=== PATIENT | female | born 1940 | race Caucasian/White ===

== ENCOUNTER 2020-06-30 06:55 | Day surgery (SDC) | payer OTHER ==
--- NOTE | 2020-06-27 12:15 | RAD REPORT ---
EXAM DESCRIPTION: RAD - Chest Pa And Lat (2 Views) - 06/27/2020 12:01 pm CLINICAL HISTORY: preop, pending cardiac catheterization COMPARISON: Two view chest August 2009 TECHNIQUE: Frontal and lateral views of the chest were obtained. FINDINGS: The lungs are clear. Interstitial pattern not clearly different from comparison. Heart si ze is normal and central vasculature is within normal limits. No pleural effusion or pneumothorax se en. No acute bony finding noted. No aortic abnormality. IMPRESSION: No acute cardiopulmonary process. No worrisome change from the remote comparison.
[2020-06-27 12:26] LABS: Absolute Lymphocytes (CBC) 2.2 K/uL (0.7-4.9); Basophils % 1.1 % (0-1.3); Hematocrit 45.3 % (36.0-45.0); Lymphocytes % 22.8 % (15.3-44.8); MPV 9.6 fL (7.6-11.3); RBC Red Blood Cell Count 5.17 M/uL (3.86-4.86)
[2020-06-27 12:34] LABS: Protime INR 0.96
[2020-06-27 13:15] LABS: Potassium 4.1 mmol/L (3.5-5.1)
[2020-06-30] MEDS ORDERED: NA CHLORIDE 0.9% 500 ML ONE (08:52)
[2020-06-30] MEDS ORDERED: LIDOCAINE 1% 20 ML MDV ONE (10:27)
[2020-06-30] MEDS ORDERED: HEPA 1000U/500MLS 2,000 UNIT/1,000 ML BAG IV ONE (10:27)
[2020-06-30] MEDS ORDERED: HEPARIN 5000 UNIT/ML 1 ML VIAL ONE (10:35)
[2020-06-30] MEDS ORDERED: MIDAZOLAM HCL 2 MG/2 ML INJ ONE ×2 (10:35→10:45)
[2020-06-30] MEDS ORDERED: FENTANYL CITR 100 MCG/2 ML ONE (10:36)
[2020-06-30] MEDS ORDERED: ATROPINE SULF 1 MG/10 ML SYR IV ONE (10:36)
[2020-06-30] MEDS ORDERED: METOPROLOL TARTRATE 5 MG/5 ML INJ IV ONE (10:41)
--- NOTE | 2020-06-30 12:10 | OP ---
Surgeon: Chadwick Clancy MD Sales Trader: Clayton Bustos. Procedure: Abdominal angiogram with runoff. Indication: Peripheral arterial disease and positive arterial Doppler below the knees and claudicati on. Ms. Cespedes is 80, diabetic, has a history of dyslipidemia, classic claudication. Arterial Doppler show ed wkgen-bgg-fexw stenosis on both sides. Abdominal angiogram with runoff was arranged for today as an outpatient. Description Of Procedure: She was brought to the laborer salvage, prepped and draped in the routine sterile fashion, and given Versed for sedation. A 6-Vietnamese sheath was introduced in the right common femora l artery successfully using the Seldinger technique and 10 cc of Xylocaine. StarClose was used to cl ose the procedure. Angiography using a pigtail catheter above the renals showed normal renals bilate rally, normal aorta, normal iliac, normal SFA with 100% occlusion of the anterior tibial, posterior t ibial, and peroneal xbxgq-tgy-bwgl on both sides. We did a selective injection using a 4-Vietnamese WILSON catheter using a guidewire that was a Glidewire across the left iliac into the left SFA. Injection there confirmed occlusion zxbcp-avh-lmts of the anterior tibial, posterior tibial, and peroneal with diffuse collaterals. Sheath injection selective of the right SFA showed similar finding on the right side. Complications: There were no complications. Blood Loss: 5 cc. Anesthesia: Total conscious sedation was 45 minutes. Final Diagnosis: Severe peripheral artery disease below the knees. Plan: Plan is for medical therapy. For now, we will add aspirin, we will add Trental. Continue sta tin. Consider nitroglycerin. If she does not improve, I may refer her to vascular surgery program marian Vann or Franck for possible akehj-sit-cfuw interventions. The patient can go home today. I ian pimentel see her in the office in the 2 weeks. She will be at bedrest for 2 hours. NICOLE/DUL Voice ID: [id number] Report ID: [id number]
[2020-06-30 14:16] VITALS: BP 139/65; TEMP 97; O2SAT 100
== END 2020-06-30 13:56 | disposition home or self-care (01) ==
LOC: CCL 06:55
DX: I70.213 Atherosclerosis of native arteries of extremities with intermittent claudication, bilateral legs (principal); I70.92 Chronic total occlusion of artery of the extremities; E11.9 Type 2 diabetes mellitus without complications; E78.5 Hyperlipidemia, unspecified; Z20.828 Contact with and (suspected) exposure to other viral communicable diseases
CPT/HCPCS: 93005; 85025; 80048; 36415; 85610; 82947; 85730; 71046; 36200; 75630; U0002; C1893; C1887; C1769; J1644 ×2; J2250 ×2; J3010; J7040

== ENCOUNTER 2022-02-18 16:58 | Emergency (ER) | payer MEDICARE ==
--- OUTSIDE RECORDS SUMMARY | 2022-02-18 17:00 | XMS REPORT | Continuity of Care Document ---
:1940 Author Organization [facility] t Address [address] [place] [address] Care Team Providers Name Role Phone Unavailable Unavailable Unavailable Payers Payer Name Policy Type Policy Number Effective Date Expiration Date S [id number] 2021 (MEDICARE 00:00:00 REPLACEMENT HMO) Problems This patient has no known problems. Allergies, Adverse Reactions, Alerts This patient has no known allergies or adverse reactions. Medications This patient has no known medications. Procedures This patient has no known procedures. Encounters Start End Encounter Admission Attending Care Care Encounter Source Date/Time Date/Time Type Type Clinicians Facility Department ID 2022-02-09 2022-02-09 [facility] [id number] [facility]:29[facility]00 03:29:00 [facility] 2021-06-16 2021-06-16 [facility] [id number] [facility] 11:01:00 11:01:00 1119 [facility] Results This patient has no known results.
--- NOTE | 2022-02-18 17:42 | ER ---
Nurse's Notes [facility] Name: Lui Cespedes Age: 81 yrs Sex: Female : 1940 Arrival Date: 02/18/2022 Time: 17:00 Bed Waiting Private MD: Vaughn Wood E Diagnosis: Acute upper respiratory infection, unspecified Presentation: 02/18 17:19 Chief complaint: Patient states: Fever, MCKAY, body aches, fatigue x 2 days. Coronavirus jl7 screen: Vaccine status: Patient reports being unvaccinated. fatigue, fever, headache, Client presents with at least one sign or symptom that may indicate coronavirus-19. Standard/surgical mask placed on the client. Ebola Screen: No symptoms or risks identified at this time. Initial Sepsis Screen: Does the patient meet any 2 criteria? No. Patient's initial sepsis screen is negative. Does the patient have a suspected source of infection? No. Patient's initial sepsis screen is negative. Risk Assessment: Do you want to hurt yourself or someone else? Patient reports no desire to harm self or others. Onset of symptoms was February 16, 2022. 17:19 Method Of Arrival: Ambulatory [facility] 17:19 Acuity: SALVADOR [address] [facility] Triage Assessment: 17:23 Headache History: The patient has had previous headaches and this one is similar to jl7 previous episodes. General: Appears in no apparent distress. uncomfortable, Behavior is calm, cooperative, appropriate for age. Pain: Pain currently is 4 out of 10 on a pain scale. Pain began 2-3 days ago. Also complains of no other associated symptoms. Neuro: Level of Consciousness is awake, alert, obeys commands, Oriented to person, place, time, situation. Historical: - Allergies: 17:23 Aspirin; jl7 - Home Meds: 17:23 Insulin: Novolin R Sub-Q [Active]; Quinapril HCl Oral [Active]; jl7 17:32 pentoxifylline oral [Active]; jl7 - PMHx: 17:23 Diabetes mellitus; Hypertensive disorder; jl7 17:33 Intermittent claudication; jl7 - Immunization history:: Client reports having NOT received the Covid vaccine. - Social history:: Smoking status: Patient denies any tobacco usage or history of. Screenin:30 Abuse screen: Denies threats or abuse. Denies injuries from another. Nutritional jl7 screening: No deficits noted. Tuberculosis screening: No symptoms or risk factors identified. Fall Risk None identified. Assessment: 17:30 Reassessment: Dr. Villafuerte in triage assessing pt. jl7 Vital Signs: 17:19 BP 166 / 66; Pulse 105; Resp 17; Temp 99.9(O); Pulse Ox 98% on R/A; Weight 70.31 kg; jl7 Height 5 ft. 5 in. (165.10 cm); Pain 4/10; 17:19 Body Mass Index 25.79 (70.31 kg, 165.10 cm) jl7 ED Course: 17:00 Patient arrived in ED. mr 17:00 Vaughn Wood MD is Private Physician. mr 17:13 Hilda Villafuerte is Attending Physician. sd2 17:23 Triage completed. jl7 17:23 Arm band placed on right wrist. Patient placed in waiting room, Patient notified of jl7 wait time. 17:30 Patient has correct armband on for positive identification. jl7 17:30 No provider procedures requiring assistance completed. COVID swab sent to lab. jl7 17:41 Vaughn Wood MD is Referral Physician. sd2 18:04 Patient did not have IV access during this emergency room visit. jl7 Administered Medications: No medications were administered Medication: 17:30 VIS not applicable for this client. jl7 Outcome: 17:42 Discharge ordered by . sd2 18:04 Discharged to home ambulatory, with family. jl7 18:04 Condition: stable 18:04 Discharge instructions given to patient, Instructed on discharge instructions, follow up and referral plans. Demonstrated understanding of instructions, follow-up care. 18:05 Patient left the ED. jl7 Signatures: Danielle AlmontealKimberly RN RN Hilda Monte MD MD sd2 Corrections: (The following items were deleted from the chart) 17:25 17:23 Home Meds: None; jl7 jlMarylou 17:25 17:23 PMHx: None; jl7 jl7 17:25 17:23 PMHx: Headache; melony ty 17:33 17:31 Home Meds: Pentoxil Oral; jl7 jl7
--- NOTE | 2022-02-18 17:42 | EDPHYS ---
Physician Documentation [facility] Name: Lui Cespedes Age: 81 yrs Sex: Female : 1940 Arrival Date: 02/18/2022 Time: 17:00 Bed Waiting Private MD: Vaughn Wood E ED Physician Hilda Villafuerte HPI: 02/18 17:36 This 81 yrs old Female presents to ER via Ambulatory with complaints of Fever, Headache.sd2 17:36 81 yo F presents with CC of "I want a COVID test." She reports fever, headache, sd2 non-productive cough starting 2 days ago with negative home COVID test today. 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 She denies any chest pain, SOB, nausea, vomiting or diarrhea. . Historical: - Allergies: 17:23 Aspirin; jl7 - Home Meds: 17:23 Insulin: Novolin R Sub-Q [Active]; Quinapril HCl Oral [Active]; jl7 17:32 pentoxifylline oral [Active]; jl7 - PMHx: 17:23 Diabetes mellitus; Hypertensive disorder; jl7 17:33 Intermittent claudication; jl7 - Immunization history:: Client reports having NOT received the Covid vaccine. - Social history:: Smoking status: Patient denies any tobacco usage or history of. ROS: 17:36 Eyes: Negative for injury, pain, redness, and discharge, Cardiovascular: Negative for sd2 chest pain, palpitations, and edema, Respiratory: Negative for shortness of breath, cough, wheezing. Abdomen/GI: Negative for abdominal pain, nausea, vomiting, diarrhea. MS/Extremity: Negative for injury and deformity, Skin: Negative for injury, rash, and discoloration. 17:36 Hematologic/Lymphatic: Negative for swollen nodes, abnormal bleeding, and unusual bruising. 17:36 Constitutional: Positive for body aches, fever, Negative for poor PO intake, weight loss. 17:36 Neuro: Positive for headache, Negative for dizziness, gait disturbance, syncope. Exam: 17:36 Constitutional: This is a well developed, well nourished patient who is awake, alert, sd2 and in no acute distress. Head/Face: Normocephalic, atraumatic. Chest/axilla: Normal chest wall appearance and motion. Nontender with no deformity. Cardiovascular: Regular rate and rhythm with a normal S1 and S2. No gallops, murmurs, or rubs. 2+ distal pulses. Respiratory: Lungs have equal breath sounds bilaterally, clear to auscultation and percussion. No rales, rhonchi or wheezes noted. No increased work of breathing, no retractions or nasal flaring. Abdomen/GI: Soft, non-tender, with normal bowel sounds. No guarding or rebound. No evidence of tenderness throughout. Skin: Warm, dry with normal turgor. Normal color with no rashes, no lesions, and no evidence of cellulitis. MS/ Extremity: Pulses equal, no cyanosis. Neurovascular intact. Full, normal range of motion. Ambulatory without difficulty. Psych: Awake, alert, with orientation to person, place and time. Behavior, mood, and affect are within normal limits. Vital Signs: 17:19 BP 166 / 66; Pulse 105; Resp 17; Temp 99.9(O); Pulse Ox 98% on R/A; Weight 70.31 kg; jl7 Height 5 ft. 5 in. (165.10 cm); Pain 4/10; 17:19 Body Mass Index 25.79 (70.31 kg, 165.10 cm) jl7 MDM: 17:36 Differential diagnosis: viral Infection, bacterial infection, URI, bronchitis, sd2 pneumonia UTI, gastroenteritis, among others. Data reviewed: vital signs, nurses notes. Counseling: I had a detailed discussion with the patient and/or guardian regarding: the historical points, exam findings, and any diagnostic results supporting the discharge/admit diagnosis, lab results, the need for outpatient follow up, to return to the emergency department if symptoms worsen or persist or if there are any questions or concerns that arise at home. Medical screen evaluation completed. EMTALA emergency medical condition absent. ED course: COVID testing ordered. Pt would prefer not to wait for results and was informed that we will call if test returns positive. She is well appearing and nontoxic with no respiratory distress or hypoxia. She was advised of continued supportive care for symptoms, need for quarantine if positive and need for outpatient follow up. Verbalizes understanding of discharge plan and strict return precautions.. 17:42 Patient medically screened. sd2 02/18 17:30 Order name: SARS-COV-2 RT PCR (Document "Date of Onset" if Symptomatic) jl7 Administered Medications: No medications were administered Disposition Summary: 02/18/22 17:42 Discharge Ordered Location: Home sd2 Condition: Stable sd2 Diagnosis - Acute upper respiratory infection, unspecified sd2 Followup: sd2 - With: Vaughn Wood MD - When: 2 - 3 days - Reason: Recheck today's complaints, Continuance of care, Re-evaluation by your physician Followup: sd2 - With: Emergency Department - When: As needed - Reason: Discharge Instructions: - Discharge Summary Sheet sd2 - Upper Respiratory Infection, Adult sd2 - 3 Gandhi Steps to Take While Waiting for Your COVID-19 Test Result - [facility] [place] sd2 Forms: - Medication Reconciliation Form sd2 - Thank You Letter sd2 - Antibiotic Education sd2 - Prescription Opioid Use sd2 Signatures: Dispatcher [employer] Kimberly Lobato RN RN Hilda Monte MD MD sd2 Corrections: (The following items were deleted from the chart) 17:25 17:23 Home Meds: None; jl7 jl7 17:25 17:23 PMHx: None; jl7 jl7 17:25 17:23 PMHx: Headache; jl7 jl7 17:33 17:31 Home Meds: Pentoxil Oral; jl7 jl7
[2022-02-18 18:16] VITALS: BP 166/66; TEMP 99.9; O2SAT 98
== END 2022-02-18 18:05 | disposition home or self-care (01) ==
LOC: ER 16:58
DX: U07.1 COVID-19 (principal); J06.9 Acute upper respiratory infection, unspecified; I10 Essential (primary) hypertension; E11.9 Type 2 diabetes mellitus without complications; Z79.4 Long term (current) use of insulin; Z88.6 Allergy status to analgesic agent
CPT/HCPCS: 99281; U0003

== ENCOUNTER 2022-02-20 11:05 | Emergency (ER) | payer MEDICARE ==
--- OUTSIDE RECORDS SUMMARY | 2022-02-20 11:07 | XMS REPORT | Continuity of Care Document ---
:1940 Author Organization [facility] t Address [address] [place] [address] Care Team Providers Name Role Phone Unavailable Unavailable Unavailable Payers Payer Name Policy Type Policy Number Effective Date Expiration Date [id number] (MEDICARE 00:00:00 REPLACEMENT HMO) Problems This patient has no known problems. Allergies, Adverse Reactions, Alerts This patient has no known allergies or adverse reactions. Medications This patient has no known medications. Procedures This patient has no known procedures. Encounters Start End Encounter Admission Attending Care Care Encounter Source Date/Time Date/Time Type Type Clinicians Facility Department ID 2022-02-09 2022-02-09 [facility] [id number] [facility] 03:29:00 03:29:00 0715 [facility] 2021-06-16 2021-06-16 [facility] [id number] [facility] 11:01:00 11:01:00 1119 [facility] Results This patient has no known results.
[2022-02-20 11:43] LABS: Absolute Lymphocytes (CBC) 0.9 K/uL (0.7-4.9); Hematocrit 40.8 % (36.0-45.0); Lymphocytes % 9.6 % (15.3-44.8); MCV 88.6 fL (80-100); MPV 8.3 fL (7.6-11.3)
[2022-02-20] MEDS ORDERED: ONDANSETRON 4 MG/2 ML VIAL ONE (11:54)
[2022-02-20] MEDS ORDERED: NA CHLORIDE 0.9% 2,000 ML ONE (11:54)
[2022-02-20 12:01] LABS: Albumin 3.4 g/dL (3.4-5.0); Bilirubin Total 0.3 mg/dL (0.2-1.0); Potassium 4.4 mmol/L (3.5-5.1); Protein, Total 7.1 g/dL (6.4-8.2)
--- NOTE | 2022-02-20 12:47 | RAD REPORT ---
EXAM DESCRIPTION: RAD - Chest Single View - 02/20/2022 12:39 pm CLINICAL HISTORY: COUGH Chest pain. COMPARISON: Chest Pa And Lat (2 Views) dated 06/27/2020; CHEST PA AND LAT 2 VIEW dated 09/07/2009; CH EST PA AND LAT 2 VIEW dated 08/29/2009; CHEST PA AND LAT 2 VIEW dated 06/29/2009 FINDINGS: Portable technique limits examination quality. The lungs are grossly clear. The heart is normal in size. No displaced fractures. IMPRESSION: No acute intrathoracic process suspected.
[2022-02-20] MEDS ORDERED: INSULIN -REGULAR HUMAN 50 UNIT/0.5 ML ML ONE (13:51)
--- NOTE | 2022-02-20 14:49 | ER ---
Nurse's Notes [facility] Name: Lui Cespedes Age: 81 yrs Sex: Female : 1940 Arrival Date: 02/20/2022 Time: 11:06 Bed 30 Private MD: Vaughn Wood E Diagnosis: Coronavirus infection, unspecified;SARS-associated coronavirus as the cause of diseases classified elsewhere;Vomiting;Diarrhea, unspecified;Weakness;Fall on same level, unspecified;Contusion of nose;Type 1 diabetes mellitus with hyperglycemia;Acute kidney failure, unspecified-on chronic Presentation: 02/20 11:53 Chief complaint: Patient states: pt dx with COVID + X 4 days ago and states N/V X 2 jh6 days. Sent from PCP for fluids replacement and basic labs. Coronavirus screen: Vaccine status: Patient reports being unvaccinated. Ebola Screen: Patient negative for fever greater than or equal to 101.5 degrees Fahrenheit, and additional compatible Ebola Virus Disease symptoms Patient denies exposure to infectious person. Patient denies travel to an Ebola-affected area in the 21 days before illness onset. Initial Sepsis Screen: Does the patient meet any 2 criteria? No. Patient's initial sepsis screen is negative. Does the patient have a suspected source of infection? No. Patient's initial sepsis screen is negative. Risk Assessment: Do you want to hurt yourself or someone else? Patient reports no desire to harm self or others. Onset of symptoms was February 16, 2022. 11:53 Method Of Arrival: Ambulatory [facility] 11:53 Acuity: SALVADOR 3 6 Triage Assessment: 11:57 General: Appears in no apparent distress. Behavior is calm, cooperative. Pain: Denies [facility] pain. GI: Bowel sounds Abd is soft and non tender X 4 quads. Reports nausea, vomiting. Historical: - Allergies: 16:42 Aspirin; jl7 - Home Meds: 16:42 Quinapril HCl Oral [Active]; pentoxifylline Oral [Active]; Insulin: Novolin R Sub-Q jl7 [Active]; - PMHx: 16:42 diabetes mellitus; Hypertensive disorder; Intermittent Claudication; jl7 - Immunization history:: Client reports receiving the 2nd dose of the Covid vaccine. - Family history:: not pertinent. - Social history:: Smoking status: Patient denies any tobacco usage or history of. Screenin:00 Abuse screen: Denies threats or abuse. Denies injuries from another. Nutritional 6 screening: No deficits noted. Tuberculosis screening: No symptoms or risk factors identified. Fall Risk Fall in past 12 months (25 points). IV access (20 points). Assessment: 12:01 GI: Abdomen is non-distended, Bowel sounds present X 4 quads. Abd is soft and non jh6 tender. Vital Signs: 11:53 BP 102 / 57; Pulse 77; Resp 16; Temp 97.8; Pulse Ox 98% ; Weight 65.77 kg; Height 5 ft. jh6 1 in. (154.94 cm); Pain 0/10; 16:44 Pulse 75; Resp 15; Temp 98.1; Pulse Ox 98% ; jl7 11:53 Body Mass Index 27.40 (65.77 kg, 154.94 cm) 6 ED Course: 11:06 Patient arrived in ED. mr 11:06 Vaughn Wood MD is Private Physician. mr 11:27 Ismael Edwards MD is Attending Physician. eneida 11:45 Carissa Dixon, NIMO is Primary Nurse. 6 11:57 Triage completed. jh6 12:00 Arm band placed on right wrist. jh6 12:00 Inserted saline lock: 20 gauge in left antecubital area, using aseptic technique. Blood 6 collected. 12:03 Bed in low position. Side rails up X 1. jh6 12:41 Chest Single View XRAY In Process Unspecified. EDMS 14:47 Vaughn Wood MD is Referral Physician. eneida 15:13 Renal Ultrasound-Complete In Process Unspecified. EDMS 16:44 No provider procedures requiring assistance completed. IV discontinued, intact, jl7 bleeding controlled, No redness/swelling at site. Pressure dressing applied. Administered Medications: 11:53 Drug: NS 0.9% 2000 ml Route: IV; Rate: 1 bolus; Site: left antecubital; 6 14:35 Follow up: IV Status: Completed infusion; IV Intake: 2000ml j9 11:53 Drug: Zofran (Ondansetron) 4 mg Route: IVP; Site: left antecubital; 6 13:21 Follow up: Response: Nausea is decreased [facility] 13:45 Drug: Insulin Regular Human 5 units {Co-Signature: [email or web address] (Carissa Steinberg RN).} Route: [facility] IVP; Site: right antecubital; 14:26 Not Given (Patient Refused): Semaglutide Pen Injector 20 units Sub-Q once 6 14:41 Drug: NS 0.9% 500 ml Volume: 500 ml; Route: IV; Rate: 1 bolus; Site: left antecubital; jg9 15:43 Follow up: Response: No adverse reaction; IV Status: Completed infusion; IV Intake: jl7 500ml 15:35 Drug: Bebtelovimab 175 mg Route: IV; Rate: calculated rate; Site: left antecubital; jl7 15:37 Follow up: IV Status: Completed infusion jl7 16:45 Follow up: Response: No adverse reaction jl7 Medication: 16:44 VIS not applicable for this client. jl7 Intake: 14:35 IV: 2000ml; Total: 2000ml. jg9 15:43 IV: 500ml; Total: 2500ml. jl7 Outcome: 14:49 Discharge ordered by MD. monique 16:44 Discharged to home via wheelchair, with family. jl7 16:44 Condition: stable 16:44 Discharge instructions given to patient, family, Instructed on discharge instructions, follow up and referral plans. medication usage, Demonstrated understanding of instructions, follow-up care, medications, Prescriptions given X 4. 16:47 Patient left the ED. jl7 Signatures: Dispatcher [employer] EDHI Ismael Edwards MD MD cha Rivera, Danielle SaldanaKimberly RN RN jl7 Carissa Dixon RN RN jh6 Carissa Steinberg RN RN jg9 Carissa Steinbreg RN jg9 Corrections: (The following items were deleted from the chart) 14:35 14:14 IV Status: Completed infusion; IV Intake: 1000ml [facility] jg9 16:47 16:44 Discharge instructions given to patient, family, Instructed on discharge [facility] instructions, follow up and referral plans. medication usage, Demonstrated understanding of instructions, follow-up care, medications, Prescriptions given X 3, jl7
--- NOTE | 2022-02-20 14:49 | EDPHYS ---
Physician Documentation [facility] Name: Lui Cespedes Age: 81 yrs Sex: Female : 1940 Arrival Date: 02/20/2022 Time: 11:06 Bed 30 Private MD: Vaughn Wood E ED Physician Ismael Edwards HPI: 02/20 11:48 This 81 yrs old Female presents to ER via Unassigned with complaints of eneida Vomiting/Diarrhea. 11:48 The patient presents to the emergency department with nausea, diarrhea, that is eneida intermittent. Onset: The symptoms/episode began/occurred 4 day(s) ago. Possible causes: covid. The symptoms are aggravated by nothing. The symptoms are alleviated by nothing. Associated signs and symptoms: Pertinent positives: diarrhea, nausea, vomiting. Severity of symptoms: At their worst the symptoms were moderate in the emergency department the symptoms are unchanged. The patient has not experienced similar symptoms in the past. Historical: - Allergies: 16:42 Aspirin; jl7 - Home Meds: 16:42 Quinapril HCl Oral [Active]; pentoxifylline Oral [Active]; Insulin: Novolin R Sub-Q jl7 [Active]; - PMHx: 16:42 diabetes mellitus; Hypertensive disorder; Intermittent Claudication; jl7 - Immunization history:: Client reports receiving the 2nd dose of the Covid vaccine. - Family history:: not pertinent. - Social history:: Smoking status: Patient denies any tobacco usage or history of. ROS: 11:49 Constitutional: Negative for fever, chills, and weight loss, Eyes: Negative for injury, eneida pain, redness, and discharge, ENT: Negative for injury, pain, and discharge, Neck: Negative for injury, pain, and swelling, Cardiovascular: Negative for chest pain, palpitations, and edema, Respiratory: Negative for shortness of breath, cough, wheezing, and pleuritic chest pain, Back: Negative for injury and pain, : Negative for injury, bleeding, discharge, and swelling, MS/Extremity: Negative for injury and deformity, Skin: Negative for injury, rash, and discoloration, Neuro: Negative for headache, weakness, numbness, tingling, and seizure, Psych: Negative for depression, anxiety, suicide ideation, homicidal ideation, and hallucinations, Allergy/Immunology: Negative for hives, rash, and allergies, Endocrine: Negative for neck swelling, polydipsia, polyuria, polyphagia, and marked weight changes, Hematologic/Lymphatic: Negative for swollen nodes, abnormal bleeding, and unusual bruising. 11:49 Abdomen/GI: Positive for nausea and vomiting, diarrhea. Exam: 11:49 Constitutional: This is a well developed, well nourished patient who is awake, alert, eneida and in no acute distress. Head/Face: Normocephalic, atraumatic. Eyes: Pupils equal round and reactive to light, extra-ocular motions intact. Lids and lashes normal. Conjunctiva and sclera are non-icteric and not injected. Cornea within normal limits. Periorbital areas with no swelling, redness, or edema. ENT: Nares patent. No nasal discharge, no septal abnormalities noted. Tympanic membranes are normal and external auditory canals are clear. Oropharynx with no redness, swelling, or masses, exudates, or evidence of obstruction, uvula midline. Mucous membranes moist. Neck: Trachea midline, no thyromegaly or masses palpated, and no cervical lymphadenopathy. Supple, full range of motion without nuchal rigidity, or vertebral point tenderness. No Meningismus. Chest/axilla: Normal chest wall appearance and motion. Nontender with no deformity. No lesions are appreciated. Cardiovascular: Regular rate and rhythm with a normal S1 and S2. No gallops, murmurs, or rubs. Normal PMI, no JVD. No pulse deficits. Respiratory: Lungs have equal breath sounds bilaterally, clear to auscultation and percussion. No rales, rhonchi or wheezes noted. No increased work of breathing, no retractions or nasal flaring. Back: No spinal tenderness. No costovertebral tenderness. Full range of motion. Female : Normal external genitalia. Skin: Warm, dry with normal turgor. Normal color with no rashes, no lesions, and no evidence of cellulitis. MS/ Extremity: Pulses equal, no cyanosis. Neurovascular intact. Full, normal range of motion. Neuro: Awake and alert, GCS 15, oriented to person, place, time, and situation. Cranial nerves II-XII grossly intact. Motor strength 5/5 in all extremities. Sensory grossly intact. Cerebellar exam normal. Normal gait. Psych: Awake, alert, with orientation to person, place and time. Behavior, mood, and affect are within normal limits. 11:49 Abdomen/GI: Inspection: distension, that is mild, Bowel sounds: active, all quadrants, Palpation: abdomen is soft and non-tender, Liver: no appreciated palpable abnormalities, Hernia: not appreciated. 12:04 ECG was reviewed by the Attending Physician. [facility] Vital Signs: 11:53 BP 102 / 57; Pulse 77; Resp 16; Temp 97.8; Pulse Ox 98% ; Weight 65.77 kg; Height 5 ft. jh6 1 in. (154.94 cm); Pain 0/10; 16:44 Pulse 75; Resp 15; Temp 98.1; Pulse Ox 98% ; jl7 11:53 Body Mass Index 27.40 (65.77 kg, 154.94 cm) 6 MDM: 11:27 Patient medically screened. [facility] 11:51 Differential diagnosis: Nonspecific abd pain, viral gastroenteritis, gastroenteritis. [facility] Differential Diagnosis flu. Data reviewed: vital signs, nurses notes, lab test result(s), EKG, radiologic studies, plain films. Data interpreted: teletypesetter monitor: rate is 65 beats/min, rhythm is regular, Pulse oximetry: on room air. Test interpretation: by ED physician or midlevel provider: ECG, plain radiologic studies. Counseling: I had a detailed discussion with the patient and/or guardian regarding: the historical points, exam findings, and any diagnostic results supporting the discharge/admit diagnosis, lab results, radiology results, the need for outpatient follow up, for definitive care, a family practitioner. 02/20 11:32 Order name: CBC with Diff; Complete Time: 11:48 [facility] 02/20 11:32 Order name: Comprehensive Metabolic Panel; Complete Time: 13:02 [facility] 02/20 11:32 Order name: Chest Single View XRAY; Complete Time: 13:02 [facility] 02/20 14:11 Order name: Renal Ultrasound-Complete EDMS 02/20 11:32 Order name: EKG; Complete Time: 11:33 [facility] 02/20 11:32 Order name: EKG - Nurse/Tech; Complete Time: 11:53 [facility] 02/20 14:47 Order name: Misc. Order: bebtelovimab please; Complete Time: 15:39 eneida EC:04 Rate is 77 beats/min. Rhythm is regular. QRS [place] is Normal. VA interval is normal. QRS eneida interval is normal. QT interval is normal. No Q waves. T waves are Normal. No ST changes noted. Clinical impression: Normal ECG and No evidence of ischemia. Interpreted by me. Reviewed by me. Administered Medications: 11:53 Drug: NS 0.9% 2000 ml Route: IV; Rate: 1 bolus; Site: left antecubital; 6 14:35 Follow up: IV Status: Completed infusion; IV Intake: 2000ml jg9 11:53 Drug: Zofran (Ondansetron) 4 mg Route: IVP; Site: left antecubital; 6 13:21 Follow up: Response: Nausea is decreased [facility] 13:45 Drug: Insulin Regular Human 5 units {Co-Signature: jg9 (Carissa Steinberg RN).} Route: [facility] IVP; Site: right antecubital; 14:26 Not Given (Patient Refused): Semaglutide Pen Injector 20 units Sub-Q once [facility] 14:41 Drug: NS 0.9% 500 ml Volume: 500 ml; Route: IV; Rate: 1 bolus; Site: left antecubital; jg9 15:43 Follow up: Response: No adverse reaction; IV Status: Completed infusion; IV Intake: jl7 500ml 15:35 Drug: Bebtelovimab 175 mg Route: IV; Rate: calculated rate; Site: left antecubital; jl7 15:37 Follow up: IV Status: Completed infusion jl7 16:45 Follow up: Response: No adverse reaction jl7 Disposition Summary: 02/20/22 14:49 Discharge Ordered Location: Home eneida Problem: new eneida Symptoms: have improved eneida Condition: Stable eneida Diagnosis - Coronavirus infection, unspecified eneida - SARS-associated coronavirus as the cause of diseases classified elsewhere eneida - Vomiting eneida - Diarrhea, unspecified eneida - Weakness eneida - Fall on same level, unspecified eneida - Contusion of nose eneida - Type 1 diabetes mellitus with hyperglycemia eneida - Acute kidney failure, unspecified - on chronic eneida Followup: eneida - With: - When: 2 - 3 days - Reason: Recheck today's complaints, Continuance of care, Re-evaluation by your physician Discharge Instructions: - Discharge Summary Sheet eneida - Diarrhea, Adult eneida - Weakness eneida - Near-Syncope, Kuuu-nd-Avrx eneida - Diarrhea, Adult, Rcss-eq-Tzwd eneida - Weakness, Wous-xl-Leue eneida - Viral Respiratory Infection, Eens-Tq-Wgxp eneida - Aspirin and Your Heart eneida - Vomiting, Adult eneida - COVID-19 eneida - Things to Know about the COVID-19 Pandemic - [facility] - 10 Things You Can Do to Manage Your COVID-19 Symptoms at Home - [facility] eneida - COVID-19: Quarantine vs. Isolation - [facility] - Prevent the Spread of COVID-19 if You Are Sick - [facility] Forms: - Medication Reconciliation Form [facility] - Thank You Letter [facility] - Antibiotic Education [facility] - Prescription Opioid Use [facility] Prescriptions: - Pepcid 20 mg Oral Tablet - take 1 tablet by ORAL route every 12 hours for 30 days; 60 tablet; Refills: 0, [facility] Product Selection Permitted - Zofran 4 mg Oral Tablet - take 1 tablet by ORAL route every 12 hours As needed; 30 tablet; Refills: 0, [facility] Product Selection Permitted - Zithromax Z-Ascencion 250 mg Oral Tablet - take 1 tablet by ORAL route as directed for 5 days Day 1 - take two (2) tablets [facility] one time. Day 2, 3, 4 , 5 take one (1) tablet once daily.; 6 tablet; Refills: 0, Product Selection Permitted - budesonide 180 mcg/actuation Inhalation aerosol powdr breath activated - inhale 1 puff by INHALATION route 2 times per day; 1 Pump; Refills: 0, Product [facility] Selection Permitted Signatures: Dispatcher [employer] Ismael Ricks MD MD cha Leal, Jahala RN RN jl7 Carissa Dixon RN RN jh6 Carissa Steinberg RN RN jg9 Carissa Steinberg RN jg9 Corrections: (The following items were deleted from the chart) 14:11 14:00 [email or web address] ordered. EDMS RIVERA
[2022-02-20] MEDS ORDERED: BEBTELOVIMAB 175 MG/2 ML VIAL IV ONE (15:21)
--- NOTE | 2022-02-20 15:27 | RAD REPORT ---
EXAM DESCRIPTION: US - Renal Ultrasound-Complete - 02/20/2022 3:11 pm CLINICAL HISTORY: PAIN COMPARISON: No comparisons FINDINGS: The right kidney measures 8.6 x 5.3 x 3.8 cm. The left kidney measures 9.1 x 5.9 x 3.1 cm . Renal cortical thickness and echogenicity are normal. No hydronephrosis or suspicious renal mass. No bladder wall thickening or mass. No intraluminal stone or mass. IMPRESSION: No hydronephrosis or suspicious renal mass. No other significant findings.
[2022-02-20 16:52] VITALS: BP 102/57; O2SAT 98
[2022-02-20 16:54] VITALS: TEMP 98.1
--- NOTE | 2022-02-21 06:40 | EKG ---
Test Date: 2022-02-20 Test Time: 11:45:50 Sticker Hand: CUONG MEASUREMENT RESULTS: Intervals: Rate: 77 RI: 178 QRSD: 102 QT: 394 QTc: 445 Arion: P: 70 RI: 178 QRS: 50 T: 65 INTERPRETIVE STATEMENTS: Normal sinus rhythm Normal ECG Compared to ECG 06/27/2020 11:12:41 No significant changes Electronically Signed On 02-21-22 06:38:42 CDT by Chadwick Clancy
== END 2022-02-20 16:47 | disposition home or self-care (01) ==
LOC: ER 11:05
DX: U07.1 COVID-19 (principal); R19.7 Diarrhea, unspecified; R53.1 Weakness; S00.33XA Contusion of nose, initial encounter; W18.30XA Fall on same level, unspecified, initial encounter; E10.65 Type 1 diabetes mellitus with hyperglycemia; E10.22 Type 1 diabetes mellitus with diabetic chronic kidney disease; I12.9 Hypertensive chronic kidney disease with stage 1 through stage 4 chronic kidney disease, or unspecified chronic kidney disease; N18.9 Chronic kidney disease, unspecified; Z79.4 Long term (current) use of insulin; Z88.6 Allergy status to analgesic agent
CPT/HCPCS: 93005; 85025; 36415; 80053; 71045; 76770; 99284; J1815; J7030; J2405

== ENCOUNTER 2024-01-21 14:09 | Emergency (ER) | payer MEDICARE ==
[2024-01-21 15:17] LABS: Absolute Basophils 0.1 K/uL (0-0.5); Absolute Eosinophils 0.1 K/uL (0-0.5); Absolute Lymphocytes (CBC) 1.7 K/uL (0.7-4.9); Absolute Monocytes 0.6 K/uL (0.1-1.3); Absolute Neutrophil 5.9 K/uL (1.8-8.0); Basophils % 0.9 % (0-1.3); Eosinophils % 1.5 % (0-4.4); Hematocrit 36.4 % (36.0-45.0); Hemoglobin 11.8 g/dL (12.0-15.0); Lymphocytes % 19.8 % (15.3-44.8); MCH 28.6 pg (27.0-35.0); MCHC 32.3 g/dL (32.0-36.0); MCV 88.3 fL (80-100); MPV 8.2 fL (7.6-11.3); Monocytes % 7.5 % (3.3-12.3); Neutrophils % 70.3 % (41.7-73.7); Platelets 265 thou/uL (152-406); RBC Red Blood Cell Count 4.12 M/uL (3.86-4.86); Red Cell Distribution Width 14.5 % (12.1-15.2)
--- NOTE | 2024-01-21 15:21 | RAD REPORT ---
EXAM DESCRIPTION: Marlys Single View01/21/2024 2:45 pm CLINICAL HISTORY: sob COMPARISON: 2021 FINDINGS: The lungs appear clear of acute infiltrate. The heart is normal size IMPRESSION: No acute abnormalities displayed
[2024-01-21 15:34] LABS: Anion Gap 7.6 mEq/L (5.0-15.0); Magnesium 2.2 mg/dL (1.6-2.4); Potassium 4.6 mEq/L (3.5-5.1); Troponin High Sensitivity 6.4 pg/mL (<58.9)
--- NOTE | 2024-01-21 15:56 | ER ---
Nurse's Notes [facility] Name: Lui Cespedes Age: 83 yrs Sex: Female : 1940 Arrival Date: 01/21/2024 Time: 14:09 Bed 20 Private MD: Diagnosis: Shortness of breath;Palpitations Presentation: 01/20 14:18 Chief complaint: Patient states: "1 week ago, My body starts shaking and my heart mb9 starts racing when I'm sleeping. Ever since then, I've been SOB. Just talking or even walking makes me SOB.". Coronavirus screen: At this time, the client does not indicate any symptoms associated with coronavirus-19. Ebola Screen: No symptoms or risks identified at this time. Initial Sepsis Screen: Does the patient meet any 2 criteria? No. Patient's initial sepsis screen is negative. Does the patient have a suspected source of infection? No. Patient's initial sepsis screen is negative. Risk Assessment: Do you want to hurt yourself or someone else? Patient reports no desire to harm self or others. Onset of symptoms was 2023. 14:18 Acuity: SALVADOR 2 mb9 14:18 Method Of Arrival: Ambulatory mb9 Triage Assessment: 14:27 General: Appears in no apparent distress. Behavior is calm, cooperative. Pain: Denies mb9 pain. EENT: No signs and/or symptoms were reported regarding the EENT system. Neuro: Ruano Agitation-Sedation Scale (RASS): 0 - Alert and Calm Level of Consciousness is awake, alert, obeys commands, Oriented to person, place, time, situation, Appropriate for age. Cardiovascular: Patient's skin is warm and dry. Cardiovascular: Pulses are all present. Respiratory: Reports shortness of breath at rest. GI: No signs and/or symptoms were reported involving the gastrointestinal system. : No signs and/or symptoms were reported regarding the genitourinary system. Derm: Skin is pink, warm \\T\\ dry. Musculoskeletal: Range of motion: intact in all extremities. 16:06 Respiratory: Onset: The symptoms/episode began/occurred about a week ago, the patient me1 has mild shortness of breath. Historical: - Allergies: 14:20 Fentanyl; mb9 - Home Meds: 14:20 Xarelto oral [Active]; Insulin: Novolin R Sub-Q [Active]; Quinapril HCl Oral [Active]; mb9 pentoxifylline Oral [Active]; - PMHx: 14:20 diabetes mellitus; Hypertensive disorder; Intermittent Claudication; mb9 - PSHx: 14:20 left leg stent; mb9 - Immunization history:: Adult Immunizations up to date. - Infectious Disease History:: Denies. - Social history:: Smoking status: Patient denies any tobacco usage or history of. Screenin:15 [facility] ED Fall Risk Assessment (Adult) History of falling in the last 3 months, me1 including since admission No falls in past 3 months (0 pts) Confusion or Disorientation No (0 pts) Intoxicated or Sedated No (0 pts) Impaired Gait No (0 pts) Mobility Assist Device Used No (0 pt) Altered Elimination No (0 pt) Score/Fall Risk Level 0 - 2 = Low Risk Maintained a safe environment, Provided non-skid footwear, Hourly rounding (assess needs \\T\\ fall precautionary measures) done. Abuse screen: Denies threats or abuse. Nutritional screening: No deficits noted. Tuberculosis screening: No symptoms or risk factors identified. Assessment: 15:15 General: Appears comfortable, well groomed, well developed, well nourished, Behavior is me1 calm, cooperative, appropriate for age, Reports "1 week ago, My body starts shaking and my heart starts racing when I'm sleeping. Ever since then, I've been SOB. Just talking or even walking makes me SOB.". Pain: Denies pain. Neuro: Level of Consciousness is awake, alert, obeys commands, Oriented to person, place, time, situation, Appropriate for age. Cardiovascular: Patient's skin is warm and dry. Cardiovascular: Reports palpitations, shortness of breath. Respiratory: Airway is patent Respiratory effort is even, unlabored, Respiratory pattern is regular, symmetrical. GI: No signs and/or symptoms were reported involving the gastrointestinal system. : No signs and/or symptoms were reported regarding the genitourinary system. EENT: No signs and/or symptoms were reported regarding the EENT system. Derm: Skin is intact, is healthy with good turgor, Skin is pink, warm \\T\\ dry. Musculoskeletal: No signs and/or symptoms reported regarding the musculoskeletal system. 16:05 Respiratory: Breath sounds are clear bilaterally. me1 Vital Signs: 14:18 BP 150 / 87; Pulse 97; Resp 18; Temp 98; Pulse Ox 99% on R/A; Weight 65.77 kg; Height 5 mb9 ft. 7 in. ; 15:47 BP 140 / 67; Pulse 85; Resp 16; Pulse Ox 99% on R/A; me1 14:18 Body Mass Index 22.71 (65.77 kg, 170.18 cm) mb9 ED Course: 14:16 Patient arrived in ED. mg5 14:16 Arm band placed on. mb9 14:20 Loy Broderick DO is Attending Physician. ms3 14:20 Triage completed. mb9 14:46 XRAY Chest (1 view) In Process Unspecified. EDMS 15:00 Missed attempt(s): 22 gauge in left wrist. Bleeding controlled, band aid applied, bc6 catheter tip intact. 15:09 Basic Metabolic Panel Sent. 6 15:09 CBC with Diff Sent. bc6 15:09 Magnesium Sent. 6 15:09 NT PRO-BNP Sent. 6 15:09 Troponin HS Sent. 6 15:09 Initial lab(s) drawn, by ok, sent to lab. Inserted saline lock: 20 gauge in right bc6 forearm, using aseptic technique. Blood collected. 15:15 Patient has correct armband on for positive identification. Bed in low position. Call ok1 light in reach. Side rails up X 1. Provided Education on: POC. Verbalized understanding. . Client placed on continuous cardiac and pulse oximetry monitoring. NIBP monitoring applied. hospital scientist on. Pulse ox on. NIBP on. 15:15 No provider procedures requiring assistance completed. ok1 15:22 Basic Metabolic Panel Sent. 6 15:22 Magnesium Sent. 6 15:22 NT PRO-BNP Sent. 6 15:22 Troponin HS Sent. 6 15:22 EKG done, by ED staff, reviewed by Loy Broderick DO. 6 15:40 Estefania Humphrey, NIMO is Primary Nurse. me1 16:07 IV discontinued, intact, bleeding controlled, No redness/swelling at site. Pressure ok1 dressing applied. Administered Medications: No medications were administered Medication: 15:15 VIS not applicable for this client. ok1 Outcome: 15:56 Discharge ordered by . ms3 16:06 Discharged to home ambulatory, me1 16:06 Condition: stable 16:06 Discharge instructions given to patient, Instructed on discharge instructions, follow up and referral plans. Demonstrated understanding of instructions, follow-up care, 16:10 Patient left the ED. me1 Signatures: Dispatcher [employer] EDMS Loy Broderick DO DO ms3 Danielle Vázquez RN RN mb9 Aleyda Garcia 6 Estefania Humphrey RN RN me1 Audrey Fernandes mg5 Corrections: (The following items were deleted from the chart) 14:21 14:20 Allergies: Aspirin; mb9 mb9 14:22 14:18 Chief complaint: Patient states: "1 week ago, My body starts shaking and my hear mb9 starts racing when I'm sleeping. Ever since then, I've been SOB. Just talking or even walking." mb9 15:56 14:18 Chief complaint: Patient states: "1 week ago, My body starts shaking and my heart me1 starts racing when I'm sleeping. Ever since then, I've been SOB. Just talking or even walking makes me SOB." mb9
--- NOTE | 2024-01-21 15:57 | EDPHYS ---
Physician Documentation [facility] Name: Lui Cespedes Age: 83 yrs Sex: Female : 1940 Arrival Date: 01/21/2024 Time: 14:09 Bed 20 Private MD: ED Physician Loy Broderick HPI: 01/20 15:14 This 83 yrs old Female presents to ER via Ambulatory with complaints of Shortness Of ms3 Breath. 15:14 83-year-old female past medical history of diabetes, hypertension presents to the [facility] emergency department for shortness of breath, palpitations. Patient states when her palpitations occur they and prior to her being able to get to her heart rate monitor. Heart rate monitor shows a heart rate of 90. Patient states this occurred 3 x 1 night 1 week ago. Patient states she called her primary care physician's office and they sent her to the emergency department. Patient notes she is also had shortness of breath during this time.. Historical: - Allergies: 14:20 Fentanyl; mb9 - Home Meds: 14:20 Xarelto oral [Active]; Insulin: Novolin R Sub-Q [Active]; Quinapril HCl Oral [Active]; mb9 pentoxifylline Oral [Active]; - PMHx: 14:20 diabetes mellitus; Hypertensive disorder; Intermittent Claudication; mb9 - PSHx: 14:20 left leg stent; mb9 - Immunization history:: Adult Immunizations up to date. - Infectious Disease History:: Denies. - Social history:: Smoking status: Patient denies any tobacco usage or history of. ROS: 15:14 Constitutional: Negative for fever, and chills. Neck: Negative for injury, pain, and ms3 swelling, Cardiovascular: Negative for chest pain, and palpitations. 15:14 Abdomen/GI: Negative for abdominal pain, nausea, vomiting, diarrhea, and constipation, MS/Extremity: Negative for injury and deformity, 15:14 Respiratory: Positive for shortness of breath, Exam: 15:14 Constitutional: This is a well developed, well nourished patient who is awake, alert, ms3 and in no acute distress. Head/Face: Normocephalic, atraumatic. Chest/axilla: Normal chest wall appearance and motion. Nontender with no deformity. Cardiovascular: Regular rate and rhythm with a normal S1 and S2. No gallops, murmurs, or rubs. Normal PMI, no JVD. No pulse deficits. Respiratory: Lungs have equal breath sounds bilaterally, clear to auscultation and percussion. No rales, rhonchi or wheezes noted. No increased work of breathing, no retractions or nasal flaring. Abdomen/GI: Soft, non-tender, with normal bowel sounds. No distension or tympany. No guarding or rebound. No evidence of tenderness throughout. Skin: Warm, dry with normal turgor. Normal color with no rashes, no lesions, and no evidence of cellulitis. 15:46 ECG was reviewed by the Attending Physician. ms3 Vital Signs: 14:18 BP 150 / 87; Pulse 97; Resp 18; Temp 98; Pulse Ox 99% on R/A; Weight 65.77 kg; Height 5 mb9 ft. 7 in. ; 15:47 BP 140 / 67; Pulse 85; Resp 16; Pulse Ox 99% on R/A; me1 14:18 Body Mass Index 22.71 (65.77 kg, 170.18 cm) mb9 MDM: 14:29 Patient medically screened. ms3 15:14 Differential diagnosis: CHF exacerbation, pneumonia, pulmonary edema. ms3 15:46 Data reviewed: vital signs, nurses notes, and as a result, I will discharge patient. ms3 Consideration of Admission/Observation Escalation of care including admission/observation considered. Discussed observation with patient and patient states she would like to be discharged home. Independent interpretation of the following test(s) in the Emergency Department X-Ray: My interpretation is CXR image reviewed by me does not reveal pulmonary edema. Counseling: I had a detailed discussion with the patient and/or guardian regarding the historical points, exam findings, and any diagnostic results supporting the discharge/admit diagnosis, lab results, radiology results, the need for outpatient follow up, to return to the emergency department if symptoms worsen or persist or if there are any questions or concerns that arise at home. Special discussion: I discussed with the patient/guardian in detail that at this point there is no indication for admission to the hospital. It is understood, however, that if the symptoms persist or worsen the patient needs to return immediately for re-evaluation. ED course: Discussed labs and x-ray with patient. Patient to follow-up with her zanjero in 2 to 3 days. Patient understands and agrees with plan. All questions were answered. On reevaluation patient is alert and oriented x 4, no apparent distress, nontoxic-appearing, speaking full sentences. Discussed observation with patient patient declines.. 01/20 14:29 Order name: Basic Metabolic Panel; Complete Time: 15:35 ms3 01/20 14:29 Order name: CBC with Diff; Complete Time: 15:33 ms3 01/20 14:29 Order name: Magnesium; Complete Time: 15:35 ms3 01/20 14:29 Order name: NT PRO-BNP; Complete Time: 15:35 ms3 01/20 14:29 Order name: Troponin HS; Complete Time: 15:35 ms3 01/20 14:29 Order name: XRAY Chest (1 view); Complete Time: 15:33 ms3 01/20 14:29 Order name: Cardiac monitoring; Complete Time: 15:22 ms3 01/20 14:29 Order name: EKG - Nurse/Tech; Complete Time: 15:22 ms3 01/20 14:29 Order name: IV Saline Lock; Complete Time: 15:09 ms3 01/20 14:29 Order name: Labs collected and sent; Complete Time: 15:09 ms3 01/20 14:29 Order name: O2 Per Protocol; Complete Time: 15:22 ms3 01/20 14:29 Order name: O2 Sat Monitoring; Complete Time: 15:22 ms3 EC:46 Rate is 87 beats/min. Rhythm is regular. QRS [place] is Normal. MD interval is normal. QRS ms3 interval is normal. Clinical impression: Normal ECG. Interpreted by me. Reviewed by me. Administered Medications: No medications were administered Disposition Summary: 01/21/24 15:56 Discharge Ordered Notes: Location: Home ms3 Condition: Stable ms3 Diagnosis - Shortness of breath ms3 - Palpitations ms3 Followup: ms3 - With: Private Physician - When: 2 - 3 days - Reason: Recheck today's complaints Discharge Instructions: - Discharge Summary Sheet ms3 - Palpitations ms3 - Shortness of Breath, Adult ms3 Forms: - Medication Reconciliation Form ms3 - Antibiotic Education ms3 - Prescription Opioid Use ms3 - Patient Portal Instructions ms3 - Leadership Thank You Letter ms3 Signatures: Dispatcher [employer] EDLoy Cosme DO DO ms3 Danielle Vázquez, RN RN mb9 Corrections: (The following items were deleted from the chart) 14: 14:20 Allergies: Aspirin; mb9 mb9 14: 14:29 BASIC METABOLIC PANEL+C.LAB.BRZ ordered. EDMS EDMS 14: 14: CBC+H.LAB.BRZ ordered. EDMS EDMS 14: 14:29 MAGNESIUM+C.LAB.BRZ ordered. EDMS EDMS : 14:29 PROBNP+C.LAB.BRZ ordered. EDMS EDMS 14: 14:29 Troponin High Sensitivity+C.LAB.BRZ ordered. EDMS EDMS
[2024-01-21 16:27] VITALS: BP 140/67; TEMP 98; O2SAT 99
--- NOTE | 2024-01-22 13:50 | EKG ---
Test Date: 2024-01-21 Test Time: 15:16:30 Milk Of Lime Slaker: JEANNA MEASUREMENT RESULTS: Intervals: Rate: 87 GA: 180 QRSD: 104 QT: 382 QTc: 459 [place]: P: 81 GA: 180 QRS: 81 T: 78 INTERPRETIVE STATEMENTS: Normal sinus rhythm Normal ECG Compared to ECG 02/20/2022 11:45:50 No significant changes Electronically Signed On 01-22-24 13:48:16 CDT by Oscar Montilla
== END 2024-01-21 16:10 | disposition home or self-care (01) ==
LOC: SUPCPDRO 14:09 → ER 14:09
DX: R06.02 Shortness of breath (principal); R00.2 Palpitations; I10 Essential (primary) hypertension; E11.9 Type 2 diabetes mellitus without complications; Z79.4 Long term (current) use of insulin; Z79.01 Long term (current) use of anticoagulants
CPT/HCPCS: 36415; 71045; 80048; 83735; 83880; 84484; 85025; 93005

== ENCOUNTER 2024-01-29 09:45 | Emergency (ER) | payer MEDICARE ==
[2024-01-29] MEDS ORDERED: ONDANSETRON 4 MG/2 ML VIAL ONE (10:15)
[2024-01-29] MEDS ORDERED: NA CHLORIDE 0.9% 500 ML ONE (10:16)
[2024-01-29] MEDS ORDERED: TDAP (DIPHTH,PERTUSS(ACELL),TET VAC) 0.5 ML VIAL IMVAC ONE (10:16)
--- NOTE | 2024-01-29 10:32 | RAD REPORT ---
EXAM DESCRIPTION: RAD - Hip Left 2 View - 01/29/2024 10:25 am CLINICAL HISTORY: PAIN COMPARISON: No comparisons FINDINGS/IMPRESSION: No acute fracture. No dislocation. Mild to moderate left acetabular degenerativ e changes. Peripheral vascular calcifications. Enthesophyte or remote fracture at the greater trochan ter. Prominent enthesophyte from the anterior superior iliac spine.
--- NOTE | 2024-01-29 10:32 | RAD REPORT ---
EXAM DESCRIPTION: RAD - Pelvis - 01/29/2024 10:25 am CLINICAL HISTORY: PAIN COMPARISON: No comparisons FINDINGS/IMPRESSION: No acute fracture. No dislocation . Bilateral acetabular degenerative changes. Degenerative changes in lower spine. Vascular calcifications.
[2024-01-29 10:49] LABS: Absolute Basophils 0.1 K/uL (0-0.5); Absolute Eosinophils 0.2 K/uL (0-0.5); Absolute Lymphocytes (CBC) 1.8 K/uL (0.7-4.9); Absolute Monocytes 0.6 K/uL (0.1-1.3); Absolute Neutrophil 5.1 K/uL (1.8-8.0); Eosinophils % 2.2 % (0-4.4); Hematocrit 36.1 % (36.0-45.0); Hemoglobin 11.9 g/dL (12.0-15.0); Lymphocytes % 23.6 % (15.3-44.8); MCH 28.9 pg (27.0-35.0); MCV 87.5 fL (80-100); MPV 7.9 fL (7.6-11.3); Monocytes % 7.6 % (3.3-12.3); Neutrophils % 65.6 % (41.7-73.7); Nucleated Red Blood Cells % 0.1 % (0-0); Platelets 277 thou/uL (152-406); RBC Red Blood Cell Count 4.12 M/uL (3.86-4.86); Red Cell Distribution Width 14.1 % (12.1-15.2)
[2024-01-29 11:03] LABS: Albumin 3.5 g/dL (3.4-5.0); Bilirubin Total 0.3 mg/dL (0.2-1.0); Globulin 3.6 g/dL (2.3-3.5); Protein, Total 7.1 g/dL (6.4-8.2)
--- NOTE | 2024-01-29 11:14 | RAD REPORT ---
EXAM DESCRIPTION: CT - Hip Left Wo Con - 01/29/2024 10:43 am CLINICAL HISTORY: fall COMPARISON: No comparisons FINDINGS: No left hip fracture is identified. The left femoral head is located. Enthesopathic change s are present at the greater trochanter. Peripheral vascular calcifications. Hysterectomy. Mild left acetabular degenerative changes. IMPRESSION: No left hip fracture or dislocation.
--- NOTE | 2024-01-29 12:11 | RAD REPORT ---
EXAM DESCRIPTION: US - Extrem Venous W Compress Nelson - 01/29/2024 12:04 pm CLINICAL HISTORY: Pain;Swelling COMPARISON: EXT VENOUS W COMPRESSION NELSON dated 07/14/2012 TECHNIQUE: Real-time sonographic evaluation of the lower extremity deep venous systems was performed using color Doppler, grayscale, and compression. FINDINGS: Bilateral lower extremities. Normal compressibility, flow augmentation, phasic flow and spontaneous flow is identified in both the left and right lower extremity deep venous systems. No intraluminal filling defects seen. IMPRESSION: No DVT in either lower extremity.
--- NOTE | 2024-01-29 12:31 | EDPHYS ---
Physician Documentation [facility] Name: Lui Cespedes Age: 83 yrs Sex: Female : 1940 Arrival Date: 01/29/2024 Time: 09:45 Bed 19 Private MD: ED Physician Ismael Edwards HPI: 01/28 11:02 This 83 yrs old Female presents to ER via Wheelchair with complaints of Fall eneida Injury, Hip Pain. 11:15 Details of fall: The patient fell from an upright position, while walking. Onset: The eneida symptoms/episode began/occurred today. Associated injuries: The patient sustained left hip, contusion, decreased range of motion. Severity of symptoms: At their worst the symptoms were mild, moderate, in the emergency department the symptoms are unchanged. The patient has experienced similar episodes in the past, a few times. Historical: - Allergies: 10:01 Fentanyl; iw 10:01 narcotics; iw - Home Meds: 10:39 Insulin: Novolin R Sub-Q [Active]; pentoxifylline Oral [Active]; Quinapril HCl Oral mb9 [Active]; Xarelto oral [Active]; - PMHx: 10:01 Hypertensive disorder; diabetes mellitus; Intermittent Claudication; iw - PSHx: 10:01 left leg stent; iw - Immunization history:: Adult Immunizations up to date. - Infectious Disease History:: Denies. - Social history:: Smoking status: Smoking status: Patient denies any tobacco usage or history of. ROS: 11:15 Constitutional: Negative for fever, chills, and weight loss, Eyes: Negative for injury, eneida pain, redness, and discharge, ENT: Negative for injury, pain, and discharge, Neck: Negative for injury, pain, and swelling, Cardiovascular: Negative for chest pain, palpitations, and edema, Respiratory: Negative for shortness of breath, cough, wheezing, and pleuritic chest pain, Abdomen/GI: Negative for abdominal pain, nausea, vomiting, diarrhea, and constipation, Back: Negative for injury and pain, : Negative for injury, bleeding, discharge, and swelling, Skin: Negative for injury, rash, and discoloration, Neuro: Negative for headache, weakness, numbness, tingling, and seizure, Psych: Negative for depression, anxiety, suicide ideation, homicidal ideation, and hallucinations, Allergy/Immunology: Negative for hives, rash, and allergies, Endocrine: Negative for neck swelling, polydipsia, polyuria, polyphagia, and marked weight changes, Hematologic/Lymphatic: Negative for swollen nodes, abnormal bleeding, and unusual bruising, 11:15 MS/extremity: Positive for decreased range of motion, pain, swelling, tenderness, of the left hip, Exam: 11:15 Constitutional: This is a well developed, well nourished patient who is awake, alert, eneida and in no acute distress. Head/Face: Normocephalic, atraumatic. Eyes: Pupils equal round and reactive to light, extra-ocular motions intact. Lids and lashes normal. Conjunctiva and sclera are non-icteric and not injected. Cornea within normal limits. Periorbital areas with no swelling, redness, or edema. ENT: Nares patent. No nasal discharge, no septal abnormalities noted. Tympanic membranes are normal and external auditory canals are clear. Oropharynx with no redness, swelling, or masses, exudates, or evidence of obstruction, uvula midline. Mucous membranes moist. Neck: Trachea midline, no thyromegaly or masses palpated, and no cervical lymphadenopathy. Supple, full range of motion without nuchal rigidity, or vertebral point tenderness. No Meningismus. Chest/axilla: Normal chest wall appearance and motion. Nontender with no deformity. No lesions are appreciated. Cardiovascular: Regular rate and rhythm with a normal S1 and S2. No gallops, murmurs, or rubs. Normal PMI, no JVD. No pulse deficits. Respiratory: Lungs have equal breath sounds bilaterally, clear to auscultation and percussion. No rales, rhonchi or wheezes noted. No increased work of breathing, no retractions or nasal flaring. Abdomen/GI: Soft, non-tender, with normal bowel sounds. No distension or tympany. No guarding or rebound. No evidence of tenderness throughout. Back: No spinal tenderness. No costovertebral tenderness. Full range of motion. Female : Normal external genitalia. Skin: Warm, dry with normal turgor. Normal color with no rashes, no lesions, and no evidence of cellulitis. Neuro: Awake and alert, GCS 15, oriented to person, place, time, and situation. Cranial nerves II-XII grossly intact. Motor strength 5/5 in all extremities. Sensory grossly intact. Cerebellar exam normal. Normal gait. Psych: Awake, alert, with orientation to person, place and time. Behavior, mood, and affect are within normal limits. 11:15 Musculoskeletal/extremity: ROM: no acute changes, intact in all extremities, full active range of motion, full passive range of motion, Circulation is intact in all extremities. Compartment Syndrome exam of affected extremity: is normal. Weight bearing: able to fully bear weight, DVT Exam: negative Homans' sign noted on exam, no appreciated bluish discoloration, no erythema, no increased warmth, pain, swelling, tenderness, Vital Signs: 09:59 BP 136 / 80; Pulse 94; Resp 16; Temp 98.1; Pulse Ox 100% on R/A; Weight 68.95 kg; iw Height 5 ft. 5 in. ; Pain 3/10; 11:52 BP 154 / 59; Pulse 74; Resp 16; Pulse Ox 100% on R/A; mb9 12:54 BP 142 / 89; Pulse 70; Resp 16; Pulse Ox 100% on R/A; mb9 09:59 Body Mass Index 25.29 (68.95 kg, 165.1 cm) iw 09:59 Pain Scale: Adult iw MDM: 09:52 Patient medically screened. eneida 11:18 Differential diagnosis: hip fracture, intertrochanteric fracture, femoral neck eneida fracture, femoral shaft fracture, bursitis, arthritis, strain. Differential diagnosis: abrasion, contusion, fracture, multiple trauma, sprain, strain. Data reviewed: vital signs, nurses notes, lab test result(s), EKG, radiologic studies, CT scan, doppler. Consideration of Admission/Observation Escalation of care including admission/observation considered. I considered the following discharge prescriptions or medication management in the emergency department Medications were administered in the Emergency Department. See MAR. Independent interpretation of the following test(s) in the Emergency Department X-Ray: My interpretation is no fx. CT Scan: My interpretation is no fx. Test considered but Not performed: EKG: no ekg. Care significantly affected by the following chronic conditions: Diabetes, Hypertension, pvd, intermittent claudation. 01/28 10:10 Order name: CBC with Diff; Complete Time: 11:14 eneida 01/28 10:10 Order name: Comprehensive Metabolic Panel; Complete Time: 11:14 eneida 01/28 10:10 Order name: Pelvis XRAY; Complete Time: 11:14 eneida 01/28 10:10 Order name: Hip Left 2 View XRAY; Complete Time: 11:14 eneida 01/28 10:21 Order name: Hip Left Wo Con; Complete Time: 11:22 EDMS 01/28 11:08 Order name: US Extremity Venous W Compression Nelson eneida 01/28 10:10 Order name: Wound Care: neosporin; Complete Time: 10:17 eneida Administered Medications: 10:12 Not Given (Patient Refused): [id number] mg IVP once mb9 10:40 Drug: Ondansetron IVP 4 mg IVP once; over 2 minutes Route: IVP; Site: right antecubital;mb9 12:22 Follow up: Response: No adverse reaction mb9 10:42 Drug: Tetanus Toxoid,Adsorbed IM 0.5 ml IM once; Provide Vaccine Information Statement mb9 (VIS). 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: [employer]; Exp: SatApr 08 2026; Lot #: [id number]; Series: 1 of ; Patient Consent: Obtained; Date/Time: ; Source Name: Lui Cespedes; Source Relationship: Self; Address Information: [address] [place] [id number]; ; Education: Provided; VIS Presented Date: ; VIS Publication: Tetanus/Diphtheria (Td) VIS 09/01/2013 (historic)} Route: IM; Site: right deltoid; 12:22 Follow up: Response: No adverse reaction mb9 10:43 Drug: NS 0.9% IV 500 ml IV at bolus once Route: IV; Rate: bolus; Site: right mb9 antecubital; 12:22 Follow up: Response: No adverse reaction; IV Status: Completed infusion mb9 12:55 Follow up: Response: No adverse reaction; IV Status: Completed infusion mb9 Disposition Summary: 01/29/24 12:31 Discharge Ordered Notes: Location: Home eneida Problem: new eneida Symptoms: have improved eneida Condition: Stable eneida Diagnosis - Fall on same level, unspecified eneida - Contusion of left hip eneida - Coagulation defect, unspecified eneida Followup: eneida - With: Private Physician - When: 1 - 2 days - Reason: Recheck today's complaints, Continuance of care, Re-evaluation by your physician Discharge Instructions: - Discharge Summary Sheet eneida - Contusion eneida - Fall Prevention in the Home, Adult eneida - Contusion, [id number] eneida - Fall Prevention in the Home, Adult, [id number] eneida - Hip Pain eneida Forms: - Medication Reconciliation Form eneida - Antibiotic Education eneida - Prescription Opioid Use eneida - Patient Portal Instructions eneida - Leadership Thank You Letter eneida Signatures: Dispatcher [employer] EDIsmael Vasquez MD MD cha Williams, Irene, RN RN iw Wilkerson, Mary Beth RN RN mb9 Corrections: (The following items were deleted from the chart) 10:21 10:17 CT LEFT HIP WO CONTRAST ordered. EDMS EDMS
--- NOTE | 2024-01-29 12:31 | ER ---
Nurse's Notes [facility] Name: Lui Cespedes Age: 83 yrs Sex: Female : 1940 Arrival Date: 01/29/2024 Time: 09:45 Bed 19 Private MD: Diagnosis: Fall on same level, unspecified;Contusion of left hip;Coagulation defect, unspecified Presentation: 01/28 09:58 Chief complaint: Patient states: fell yesterday , I have neuropathy and sometimes my iw leg will give way, I was going to my car in a hurry and I was on the ground before I knew it, fell on left hip , can ambulate but it hurts from the hip down to her left knee , she has aching in back of her left leg also , she has hx of DVT. 09:58 Acuity: SALVADOR 3 iw 09:59 Coronavirus screen: At this time, the client does not indicate any symptoms associated iw with coronavirus-19. Ebola Screen: Patient negative for fever greater than or equal to 101.5 degrees Fahrenheit, and additional compatible Ebola Virus Disease symptoms Patient denies exposure to infectious person. Patient denies travel to an Ebola-affected area in the 21 days before illness onset. No symptoms or risks identified at this time. Initial Sepsis Screen: Does the patient meet any 2 criteria? No. Patient's initial sepsis screen is negative. Does the patient have a suspected source of infection? No. Patient's initial sepsis screen is negative. Risk Assessment: Do you want to hurt yourself or someone else? Patient reports no desire to harm self or others. Onset of symptoms was January 28, 2024. 09:59 Method Of Arrival: Wheelchair iw Historical: - Allergies: 10:01 Fentanyl; iw 10:01 narcotics; iw - Home Meds: 10:39 Insulin: Novolin R Sub-Q [Active]; pentoxifylline Oral [Active]; Quinapril HCl Oral mb9 [Active]; Xarelto oral [Active]; - PMHx: 10:01 Hypertensive disorder; diabetes mellitus; Intermittent Claudication; iw - PSHx: 10:01 left leg stent; iw Historical Immunization: - Administered Vaccines 10:43 NS 0.9% IV 500 ml mb9 10:42 Tetanus Toxoid,Adsorbed IM 0.5 ml mb9 Clinical Services Director: iChange; Exp: SatApr 08 2026; Lot #: [id number]; Series: 1 of 1; Patient Consent: Obtained; Date/Time: ; Source Name: Lui Cespedes; Source Relationship: Self; Address Information: [facility] [place] , [facility] [address]; ; Education: Provided; VIS Presented Date: ; VIS Publication: Tetanus/Diphtheria (Td) VIS 09/01/2013 (historic) 10:40 Ondansetron IVP 4 mg mb9 - Immunization history:: Adult Immunizations up to date. - Infectious Disease History:: Denies. - Social history:: Smoking status: Smoking status: Patient denies any tobacco usage or history of. Screenin:10 [facility] ED Fall Risk Assessment (Adult) History of falling in the last 3 months, mb9 including since admission Yes- single mechanical fall (1 pt) Confusion or Disorientation No (0 pts) Intoxicated or Sedated No (0 pts) Impaired Gait No (0 pts) Mobility Assist Device Used No (0 pt) Altered Elimination No (0 pt) Score/Fall Risk Level 3 or more points = High Risk Oriented to surroundings, Maintained a safe environment, Educated pt \T\ family on fall prevention, incl call for assistance when getting out of bed. Abuse screen: Denies threats or abuse. Nutritional screening: No deficits noted. Tuberculosis screening: No symptoms or risk factors identified. Assessment: 10:09 General: Appears in no apparent distress. Behavior is calm, cooperative, appropriate mb9 for age. Pain: Complains of pain in left hip Pain does not radiate. Pain currently is 5 out of 10 on a pain scale. Quality of pain is described as throbbing, Pain began suddenly, Is intermittent, Aggravated by repositioning, weight bearing. Neuro: Ruano Agitation-Sedation Scale (RASS): 0 - Alert and Calm Level of Consciousness is awake, alert, obeys commands, Oriented to person, place, time, situation, Appropriate for age. Cardiovascular: Patient's skin is warm and dry. Respiratory: Airway is patent Respiratory effort is even, unlabored, Respiratory pattern is regular, symmetrical. GI: No signs and/or symptoms were reported involving the gastrointestinal system. : No signs and/or symptoms were reported regarding the genitourinary system. EENT: No signs and/or symptoms were reported regarding the EENT system. Derm: abrasion noted to left patella. Musculoskeletal: Range of motion: intact in all extremities. 11:52 Reassessment: No changes from previously documented assessment. Patient and/or family mb9 updated on plan of care and expected duration. Pain level reassessed. Patient is alert, oriented x 3, equal unlabored respirations, skin warm/dry/pink. 12:54 Reassessment: Patient and/or family updated on plan of care and expected duration. Pain mb9 level reassessed. Patient is alert, oriented x 3, equal unlabored respirations, skin warm/dry/pink. Patient states feeling better. Patient states symptoms have improved. Vital Signs: 09:59 BP 136 / 80; Pulse 94; Resp 16; Temp 98.1; Pulse Ox 100% on R/A; Weight 68.95 kg; iw Height 5 ft. 5 in. ; Pain 3/10; 11:52 BP 154 / 59; Pulse 74; Resp 16; Pulse Ox 100% on R/A; mb9 12:54 BP 142 / 89; Pulse 70; Resp 16; Pulse Ox 100% on R/A; mb9 09:59 Body Mass Index 25.29 (68.95 kg, 165.1 cm) iw 09:59 Pain Scale: Adult iw ED Course: 09:50 Patient arrived in ED. ra3 09:52 Ismael Edwards MD is Attending Physician. eneida 09:59 Triage completed. iw 10:01 Arm band placed on. iw 10:04 Danielle Azar RN is Primary Nurse. mb9 10:10 Placed in gown. Bed in low position. Call light in reach. Side rails up X 1. Provided mb9 Education on: press call light if needing anything. Client placed on continuous cardiac and pulse oximetry monitoring. NIBP monitoring applied. Door closed. Noise minimized. Warm blanket given. Pillow given. 10:11 No provider procedures requiring assistance completed. mb9 10:27 Pelvis XRAY In Process Unspecified. EDMS 10:27 Hip Left 2 View XRAY In Process Unspecified. EDMS 10:35 Initial lab(s) drawn, by me, sent to lab. Inserted saline lock: 20 gauge in right mb9 antecubital area, using aseptic technique. Blood collected. 10:44 Hip Left Wo Con In Process Unspecified. EDMS 12:06 US Extremity Venous W Compression Nelson In Process Unspecified. EDMS 12:55 IV discontinued, intact, bleeding controlled, No redness/swelling at site. Pressure mb9 dressing applied. Administered Medications: 10:12 Not Given (Patient Refused): [id number] mg IVP once mb9 10:40 Drug: Ondansetron IVP 4 mg IVP once; over 2 minutes Route: IVP; Site: right antecubital;mb9 12:22 Follow up: Response: No adverse reaction mb9 10:42 Drug: Tetanus Toxoid,Adsorbed IM 0.5 ml IM once; Provide Vaccine Information Statement mb9 (VIS). {Clinical Services Director: i[employer]; Exp: SatApr 08 2026; Lot #: [id number]; Series: 1 of 1; Patient Consent: Obtained; Date/Time: ; Source Name: Lui Cespedes; Source Relationship: Self; Address Information: [address] [place] [address]; ; Education: Provided; VIS Presented Date: ; VIS Publication: Tetanus/Diphtheria (Td) VIS 09/01/2013 (historic)} Route: IM; Site: right deltoid; 12:22 Follow up: Response: No adverse reaction mb9 10:43 Drug: NS 0.9% IV 500 ml IV at bolus once Route: IV; Rate: bolus; Site: right mb9 antecubital; 12:22 Follow up: Response: No adverse reaction; IV Status: Completed infusion mb9 12:55 Follow up: Response: No adverse reaction; IV Status: Completed infusion mb9 Medication: 10:11 VIS not applicable for this client. mb9 Outcome: 12:31 Discharge ordered by . eneida 12:55 Discharged to home ambulatory, mb9 12:55 Condition: stable 12:55 Discharge instructions given to patient, family, Instructed on discharge instructions, follow up and referral plans. Demonstrated understanding of instructions, follow-up care, 12:55 Patient left the ED. mb9 Signatures: Dispatcher [employer] Ismael Ricks MD MD cha Williams, Irene, RN Danielle Faria RN RN mb9 Crista Meyer ra3 Corrections: (The following items were deleted from the chart) 10:01 09:58 Chief complaint: Patient states: fell yesterday , I have neuropathy and sometimes iw my leg will give way, I was going to my car in a hurry and I was on the ground before I knew it, fell on left hip , can ambulate but it hurts from the hip down to her left knee iw
[2024-01-29 13:04] VITALS: BP 142/89; TEMP 98.1; O2SAT 100
== END 2024-01-29 12:55 | disposition home or self-care (01) ==
LOC: ER 09:45
DX: S70.02XA Contusion of left hip, initial encounter (principal); D68.9 Coagulation defect, unspecified; W18.30XA Fall on same level, unspecified, initial encounter; Z23 Encounter for immunization; E11.9 Type 2 diabetes mellitus without complications; Z79.4 Long term (current) use of insulin; I10 Essential (primary) hypertension
CPT/HCPCS: 96361; 85025; 36415; 80053; 73700; 72170; 73502; 90471; 93970; 96374; 99284; J2405; J7040

== ENCOUNTER 2024-03-26 13:00 | Emergency (ER) | payer MEDICARE ==
--- NOTE | 2024-03-26 13:31 | ER ---
Nurse's Notes [facility] Name: Lui Cespedes Age: 84 yrs Sex: Female : 1940 Arrival Date: 03/26/2024 Time: 13:00 Bed 6 Private MD: Diagnosis: Diabetes mellitus due to underlying condition with hypoglycemia Presentation: 03/26 13:13 Chief complaint: Patient states: LOW BLOOD GLUCOSE SENT FROM WOUND CARE DUE TO BG 69 \T\ db 1200 THEN DROPPED TO 57. GIVEN CRACKERS AND PEANUT BUTTER. RAPID RESPONSE CALLED. PT IN WOUND CARE FOR A STAT DOPPLER TO LEFT FOOT AND HAS 3RD TOE PROBLEM. Coronavirus screen: Client denies travel out of the [place] in the last 14 days. At this time, the client does not indicate any symptoms associated with coronavirus-19. Ebola Screen: Patient negative for fever greater than or equal to 101.5 degrees Fahrenheit, and additional compatible Ebola Virus Disease symptoms Patient denies exposure to infectious person. Patient denies travel to an Ebola-affected area in the 21 days before illness onset. No symptoms or risks identified at this time. Initial Sepsis Screen: Does the patient meet any 2 criteria? Yes Does the patient have a suspected source of infection?. Initial Sepsis Screen: Does the patient have a suspected source of infection? No. Patient's initial sepsis screen is negative. Risk Assessment: Do you want to hurt yourself or someone else? Patient reports no desire to harm self or others. Onset of symptoms was March 26, 2024. 13:13 Method Of Arrival: Wheelchair db 13:13 Acuity: SALVADOR 3 db Triage Assessment: 13:15 General: Appears in no apparent distress. comfortable, Behavior is calm. Pain: db Complains of pain in left foot. Historical: - Allergies: 13:15 Fentanyl; db 13:15 NARCOTICS; db - Home Meds: 13:26 Insulin: Novolin R Sub-Q [Active]; Xarelto oral [Active]; Quinapril HCl Oral [Active]; tl4 pentoxifylline Oral [Active]; - PMHx: 13:15 diabetes mellitus; Hypertensive disorder; Intermittent Claudication; db - PSHx: 13:15 left leg stent; db - Immunization history:: Adult Immunizations unknown. - Infectious Disease History:: Denies. - Social history:: Smoking status: Patient denies any tobacco usage or history of. Screenin:19 [facility] ED Fall Risk Assessment (Adult) History of falling in the last 3 months, tl4 including since admission No falls in past 3 months (0 pts) Confusion or Disorientation No (0 pts) Intoxicated or Sedated No (0 pts) Impaired Gait No (0 pts) Mobility Assist Device Used No (0 pt) Altered Elimination No (0 pt) Score/Fall Risk Level 0 - 2 = Low Risk Oriented to surroundings, Maintained a safe environment, Educated pt \T\ family on fall prevention, incl call for assistance when getting out of bed, Assessed \T\ reinforced patient's understanding of fall precautions. Abuse screen: Denies threats or abuse. Denies injuries from another. Nutritional screening: No deficits noted. Tuberculosis screening: No symptoms or risk factors identified. Assessment: 13:24 General: Appears in no apparent distress. Behavior is calm, cooperative. Pain: Denies tl4 pain. Neuro: Level of Consciousness is awake, alert, obeys commands, Oriented to person, place, time, situation, Moves all extremities. Full function Gait is steady, Speech is normal, Facial symmetry appears normal. Cardiovascular: Capillary refill is > 3 seconds Patient's skin is warm and dry. Respiratory: Airway is patent Respiratory effort is even, unlabored, Respiratory pattern is regular, symmetrical, Breath sounds are clear bilaterally. GI: No signs and/or symptoms were reported involving the gastrointestinal system. : No signs and/or symptoms were reported regarding the genitourinary system. EENT: No signs and/or symptoms were reported regarding the EENT system. Derm: No signs and/or symptoms reported regarding the dermatologic system. Musculoskeletal: No signs and/or symptoms reported regarding the musculoskeletal system. Vital Signs: 13:13 BP 154 / 109; Pulse 78; Resp 18; Temp 97.5(O); Pulse Ox 100% on R/A; db ED Course: 13:06 Patient arrived in ED. ll1 13:13 Nyla Lrener, NIMO is Primary Nurse. db 13:15 Triage completed. db 13:15 Arm band placed on Patient placed in an exam room. db 13:16 Ismael Lundberg PA is PHCP. cp 13:16 Melvin Patel MD is Attending Physician. cp 13:19 Patient has correct armband on for positive identification. Bed in low position. Call tl4 light in reach. Side rails up X2. Provided Education on: ED PROCESS, CALL REIS. Client placed on continuous cardiac and pulse oximetry monitoring. NIBP monitoring applied. Door closed. Noise minimized. Moved to private room. Warm blanket given. 13:24 No provider procedures requiring assistance completed. Patient did not have IV access tl4 during this emergency room visit. Administered Medications: No medications were administered Medication: 13:19 VIS not applicable for this client. tl4 Outcome: 13:31 Discharge ordered by . pepper 13:41 Patient left the ED. ll1 Signatures: Ismael Lundberg PA PA cp Lewis, Lynsay, RN RN ll1 Nyla Lerner, RN RN db Fernando Reece RN RN tl4
--- NOTE | 2024-03-26 13:31 | EDPHYS ---
Physician Documentation [facility] Name: Lui Cespedes Age: 84 yrs Sex: Female : 1940 Arrival Date: 03/26/2024 Time: 13:00 Bed 6 Private MD: ED Physician Melvin Patel HPI: 03/26 13:20 This 84 yrs old Female presents to ER via Wheelchair with complaints of Low Blood Sugar.cp 13:20 The patient or guardian reports hypoglycemia, that was potentially precipitated by not cp eating. Onset: The symptoms/episode began/occurred just prior to arrival. Historical: - Allergies: 13:15 Fentanyl; db 13:15 NARCOTICS; db - Home Meds: 13:26 Insulin: Novolin R Sub-Q [Active]; Xarelto oral [Active]; Quinapril HCl Oral [Active]; tl4 pentoxifylline Oral [Active]; - PMHx: 13:15 diabetes mellitus; Hypertensive disorder; Intermittent Claudication; db - PSHx: 13:15 left leg stent; db - Immunization history:: Adult Immunizations unknown. - Infectious Disease History:: Denies. - Social history:: Smoking status: Patient denies any tobacco usage or history of. ROS: 13:24 Constitutional: HX per HPI cp Exam: 13:24 Head/Face: Normocephalic, atraumatic. cp 13:24 Constitutional: The patient appears in no acute distress, alert, awake, non-diaphoretic, non-toxic, well developed, well nourished, 13:24 Cardiovascular: Rate: normal, 13:24 Respiratory: the patient does not display signs of respiratory distress, Respirations: normal, no use of accessory muscles, no retractions, labored breathing, is not present, 13:24 Abdomen/GI: Inspection: abdomen appears normal, 13:24 Neuro: Orientation: to person, place \T\ time. Mentation: is normal, Motor: moves all fours, no focal deficits, Vital Signs: 13:13 BP 154 / 109; Pulse 78; Resp 18; Temp 97.5(O); Pulse Ox 100% on R/A; db MDM: 13:23 Patient medically screened. cp 13:26 Data reviewed: vital signs, nurses notes. cp 13:29 Refusal of service: The patient/guardian displays adequate decision making capability cp and despite a detailed discussion of alternatives, benefits, risks, and consequences refuses: all lab tests. ED course: patient requesting discharge so she can proceed to radiology department for scheduled tests. 03/26 13:30 Order name: Glucose, Ancillary Testing; Complete Time: 13:36 EDMS 03/26 13:36 Interpretation: Reviewed. cp Administered Medications: No medications were administered Disposition: 16:22 Co-signature as Attending Physician, Melvin Patel MD I reviewed the patient's care rn provided by the Advanced Practice Provider and agree with the diagnosis and treatment plan. Disposition Summary: 03/26/24 13:31 Discharge Ordered Notes: Location: Home cp Problem: new cp Symptoms: have improved cp Condition: Stable cp Diagnosis - Diabetes mellitus due to underlying condition with hypoglycemia cp Followup: cp - With: Emergency Department - When: As needed - Reason: Worsening of condition Discharge Instructions: - Discharge Summary Sheet cp - Hypoglycemia cp Forms: - Medication Reconciliation Form cp - Antibiotic Education cp - Prescription Opioid Use cp - Patient Portal Instructions cp - Leadership Thank You Letter cp Signatures: Melvin Patel MD MD rn Page, Corey, PA PA cp Nyla Lerner, RN RN db Fernando Reece RN RN tl4
[2024-03-26 13:45] VITALS: BP 154/109; TEMP 97.5; O2SAT 100
== END 2024-03-26 13:41 | disposition home or self-care (01) ==
LOC: ER 13:00
DX: E11.649 Type 2 diabetes mellitus with hypoglycemia without coma (principal); Z79.4 Long term (current) use of insulin; I10 Essential (primary) hypertension
CPT/HCPCS: 82947; 99282

== ENCOUNTER 2024-05-05 16:39 | Inpatient (IN) | payer MEDICARE ==
[2024-05-05 17:18] LABS: Absolute Basophils 0.1 K/uL (0-0.5); Absolute Eosinophils 0.1 K/uL (0-0.5); Absolute Lymphocytes (CBC) 1.5 K/uL (0.7-4.9); Absolute Monocytes 0.9 K/uL (0.1-1.3); Basophils % 0.8 % (0-1.3); Eosinophils % 1.3 % (0-4.4); Hemoglobin 10.8 g/dL (12.0-15.0); Lymphocytes % 12.8 % (15.3-44.8); MCH 28.4 pg (27.0-35.0); MCHC 31.8 g/dL (32.0-36.0); MCV 89.4 fL (80-100); MPV 7.8 fL (7.6-11.3); Monocytes % 7.5 % (3.3-12.3); Neutrophils % 77.6 % (41.7-73.7); Platelets 286 thou/uL (152-406); Red Cell Distribution Width 14.4 % (12.1-15.2)
[2024-05-05 17:35] LABS: Anion Gap 9.1 mEq/L (5.0-15.0); Potassium 4.1 mEq/L (3.5-5.1)
[2024-05-05] MEDS ORDERED: VANCOMYCIN 1 GM/VIAL ONE (18:15)
[2024-05-05] MEDS ORDERED: NA CHLORIDE 0.9% 250 ML ONE (18:15)
[2024-05-05] MEDS ORDERED: PIPERACIL/TAZO 3.375 GM VIAL IV ONE (18:15)
[2024-05-05] MEDS ORDERED: NA CHLORIDE 0.9% 100 ML ONE (18:15)
--- NOTE | 2024-05-05 18:26 | EDPHYS ---
Physician Documentation [facility] Name: Lui Cespedes Age: 84 yrs Sex: Female : 1940 Arrival Date: 05/05/2024 Time: 16:39 Bed 18 Private MD: ED Physician Loy Broderick HPI: 05/05 17:32 This 84 yrs old Female presents to ER via Ambulatory with complaints of Wound Infection.ms3 17:32 84-year-old female with past medical history of diabetes, hypertension, intermittent ms3 claudication presents to the emergency department for for left foot infection. Patient states she stubbed her great toe on a metal grate. Patient has been to 2 different wound centers. Patient saw Dr. Herndon today in wound clinic and was referred to the emergency department for IV antibiotics and admission.. Historical: - Allergies: 16:52 Fentanyl; hb 16:52 NARCOTICS; hb - PMHx: 16:52 diabetes mellitus; Hypertensive disorder; Intermittent Claudication; hb - PSHx: 16:52 left leg stent; hb - Immunization history:: Adult Immunizations up to date. - Infectious Disease History:: Denies. - Social history:: Smoking status: Patient denies any tobacco usage or history of. ROS: 17:32 Constitutional: Negative for fever, and chills. Neck: Negative for injury, pain, and ms3 swelling, Cardiovascular: Negative for chest pain, and palpitations. Respiratory: Negative for shortness of breath, cough, wheezing, and pleuritic chest pain, Abdomen/GI: Negative for abdominal pain, nausea, vomiting, diarrhea, and constipation, MS/Extremity: Negative for injury and deformity, 17:32 Skin: Positive for cellulitis, Exam: 17:32 Constitutional: This is a well developed, well nourished patient who is awake, alert, ms3 and in no acute distress. Head/Face: Normocephalic, atraumatic. Chest/axilla: Normal chest wall appearance and motion. Nontender with no deformity. Cardiovascular: Regular rate and rhythm with a normal S1 and S2. No gallops, murmurs, or rubs. Normal PMI, no JVD. No pulse deficits. Respiratory: Lungs have equal breath sounds bilaterally, clear to auscultation and percussion. No rales, rhonchi or wheezes noted. No increased work of breathing, no retractions or nasal flaring. Abdomen/GI: Soft, non-tender, with normal bowel sounds. No distension or tympany. No guarding or rebound. No evidence of tenderness throughout. 17:32 Skin: cellulitis, that is moderate, on the left foot, 18:38 ECG was reviewed by the Attending Physician. ms3 Vital Signs: 16:51 BP 172 / 76; Pulse 110; Resp 18; Temp 98.1(O); Pulse Ox 100% on R/A; Pain 8/10; hb 17:17 BP 173 / 134; Pulse 109; Pulse Ox 100% on R/A; MAP 147 mmHg; Pain 0/10; tm6 19:49 BP 118 / 62; Pulse 99; Resp 20; Pulse Ox 100% on R/A; MAP 80 mmHg; Pain 0/10; tm6 16:51 Pain Scale: Adult hb 17:17 Pain Scale: Adult tm6 19:49 Pain Scale: Adult tm6 MDM: 16:51 Patient medically screened. ms3 17:32 Differential diagnosis: Cellulitis versus diabetic foot ulcer versus osteomyelitis. ms3 18:26 Data reviewed: vital signs, nurses notes, lab test result(s), and as a result, I will ms3 discharge patient. Consideration of Admission/Observation Patient was admitted/placed on observation. Management of patient was discussed with the following: Hospitalist: Discussed case with Dr Lazcano. I considered the following discharge prescriptions or medication management in the emergency department Medications were administered in the Emergency Department. See MAR. Counseling: I had a detailed discussion with the patient and/or guardian regarding the historical points, exam findings, and any diagnostic results supporting the discharge/admit diagnosis, lab results, the need for further work-up and treatment in the hospital, to return to the emergency department if symptoms worsen or persist or if there are any questions or concerns that arise at home. Special discussion:. ED course: Discussed case with Dr. Herndon and he would like MRI of foot and infectious disease consulted. Discussed this with Dr. Lazcano. All questions were answered. Discussed plan for admission with the patient. She understands and agrees with plan. 05/05 16:52 Order name: CBC with Diff; Complete Time: 17:37 ms3 05/05 16:52 Order name: BMP; Complete Time: 17:37 ms3 05/05 17:37 Order name: Blood Culture Adult (2) ms3 05/05 17:37 Order name: Lactate w/ 2H reflex if indic.; Complete Time: 18:50 ms3 05/05 17:37 Order name: Protime (+inr); Complete Time: 18:39 ms3 05/05 17:37 Order name: Ptt, Activated; Complete Time: 18:39 ms3 05/05 18:57 Order name: Glucose, Ancillary Testing; Complete Time: 19:47 EDMS 05/05 19:36 Order name: Urinalysis w/ reflexes EDMS 05/05 19:36 Order name: CBC with Automated Diff EDMS 05/05 19:36 Order name: CBC with Automated Diff EDMS 05/05 19:36 Order name: Comprehensive Metabolic Panel EDMS 05/05 19:36 Order name: Comprehensive Metabolic Panel EDMS 05/05 19:36 Order name: MRA Foot Left EDMS 05/05 17:37 Order name: EKG; Complete Time: 17:38 ms3 05/05 17:37 Order name: Accucheck; Complete Time: 18:46 ms3 05/05 17:37 Order name: Cardiac monitoring; Complete Time: 18:38 ms3 05/05 17:37 Order name: EKG - Nurse/Tech; Complete Time: 18:38 ms3 05/05 17:37 Order name: IV Saline Lock - Large Bore; Complete Time: 18:21 ms3 05/05 17:37 Order name: Labs collected and sent; Complete Time: 18:21 ms3 05/05 17:37 Order name: O2 Per Protocol; Complete Time: 18:21 ms3 05/05 17:37 Order name: O2 Sat Monitoring; Complete Time: 18:21 ms3 05/05 17:37 Order name: Vital Signs; Complete Time: 18:21 ms3 EC:38 Rate is 101 beats/min. Rhythm is regular. QRS [place] is Normal. [place] interval is normal. ms3 QRS interval is normal. Clinical impression: Sinus tachycardia. Interpreted by me. Reviewed by me. Administered Medications: 19:25 Drug: Piperacillin-Tazobactam IVPB 3.375 grams IVPB once over 60 mins; (mix in NS 100 tm6 mL) Route: IVPB; Infused Over: 60 mins; Site: right antecubital; 20:18 Follow up: Response: No adverse reaction; IV Status: Completed infusion; IV Intake: tm6 100ml 20:18 Drug: vancoMYCIN IVPB 1 grams IVPB once over 2 hrs Route: IVPB; Infused Over: 2 hrs; tm6 Site: right antecubital; Disposition Summary: 05/05/24 18:26 Hospitalization Ordered Notes: Hospitalization Status: Inpatient Admission ms3 Provider: Jvaon Lazcano ms3 Location: Telemetry/[facility] (Inpatient) ms3 Condition: Stable ms3 Problem: new ms3 Symptoms: are unchanged ms3 Bed/Room Type: Standard ms3 Room Assignment: 220(05/05/24 19:46) rv1 Diagnosis - Cellulitis of left lower limb ms3 Forms: - Medication Reconciliation Form ms3 - SBAR form ms3 - Leadership Thank You Letter ms3 Signatures: Dispatcher [employer] EDMarlyn Kim RN RN Loy Broderick DO DO ms3 Mela Sumner rv1 Yasmeen Manzo RN RN tm6 Corrections: (The following items were deleted from the chart) 19:46 18:26 ms3 rv1
--- NOTE | 2024-05-05 18:26 | ER ---
Nurse's Notes [facility] Name: Lui Cespedes Age: 84 yrs Sex: Female : 1940 Arrival Date: 05/05/2024 Time: 16:39 Bed 18 Private MD: Diagnosis: Cellulitis of left lower limb Presentation: 05/05 16:51 Chief complaint: Sent by Dr. Herndon for left foot wound. Coronavirus screen: At this hb time, the client does not indicate any symptoms associated with coronavirus-19. Ebola Screen: No symptoms or risks identified at this time. Initial Sepsis Screen: Does the patient meet any 2 criteria? No. Patient's initial sepsis screen is negative. Does the patient have a suspected source of infection? No. Patient's initial sepsis screen is negative. Risk Assessment: Do you want to hurt yourself or someone else? Patient reports no desire to harm self or others. Onset of symptoms was March 2024. 16:51 Method Of Arrival: Ambulatory hb 16:51 Acuity: SALVADOR 3 hb Historical: - Allergies: 16:52 Fentanyl; hb 16:52 NARCOTICS; hb - PMHx: 16:52 diabetes mellitus; Hypertensive disorder; Intermittent Claudication; hb - PSHx: 16:52 left leg stent; hb - Immunization history:: Adult Immunizations up to date. - Infectious Disease History:: Denies. - Social history:: Smoking status: Patient denies any tobacco usage or history of. Screenin:15 [facility] ED Fall Risk Assessment (Adult) History of falling in the last 3 months, tm6 including since admission No falls in past 3 months (0 pts) Confusion or Disorientation No (0 pts) Intoxicated or Sedated No (0 pts) Impaired Gait No (0 pts) Mobility Assist Device Used No (0 pt) Altered Elimination No (0 pt) Score/Fall Risk Level 0 - 2 = Low Risk Oriented to surroundings, Maintained a safe environment, Educated pt \\T\\ family on fall prevention, incl call for assistance when getting out of bed. Abuse screen: Denies threats or abuse. Denies injuries from another. Nutritional screening: No deficits noted. Tuberculosis screening: No symptoms or risk factors identified. Assessment: 17:15 General: Appears uncomfortable, Behavior is calm, cooperative. Pain: Complains of pain tm6 in left foot Pain currently is 0 out of 10 on a pain scale. at worst was 10 out of 10 on a pain scale. Quality of pain is described as "shock" Is intermittent. Neuro: Level of Consciousness is awake, alert, obeys commands, Oriented to person, place, time, situation. Cardiovascular: Patient's skin is warm and dry. Respiratory: Airway is patent Respiratory effort is even, unlabored, Respiratory pattern is regular, symmetrical. GI: No signs and/or symptoms were reported involving the gastrointestinal system. Abdomen is flat, non-distended. : No signs and/or symptoms were reported regarding the genitourinary system. EENT: No signs and/or symptoms were reported regarding the EENT system. Derm: Wound noted left foot Wound is swollen, red, painful to patient. Musculoskeletal: Swelling present in left foot. 19:55 Reassessment: report faxed to [facility], confirmed by Amy. tm6 20:29 Reassessment: Patient and/or family updated on plan of care and expected duration. Pain tm6 level reassessed. Patient is alert, oriented x 3, equal unlabored respirations, skin warm/dry/pink. Vital Signs: 16:51 BP 172 / 76; Pulse 110; Resp 18; Temp 98.1(O); Pulse Ox 100% on R/A; Pain 8/10; hb 17:17 BP 173 / 134; Pulse 109; Pulse Ox 100% on R/A; MAP 147 mmHg; Pain 0/10; tm6 19:49 BP 118 / 62; Pulse 99; Resp 20; Pulse Ox 100% on R/A; MAP 80 mmHg; Pain 0/10; tm6 16:51 Pain Scale: Adult hb 17:17 Pain Scale: Adult tm6 19:49 Pain Scale: Adult tm6 ED Course: 16:42 Patient arrived in ED. mr 16:44 Loy Broderick DO is Attending Physician. ms3 16:52 Triage completed. hb 16:52 Arm band placed on. hb 16:56 Yasmeen Manzo, NIMO is Primary Nurse. tm6 17:12 Inserted saline lock: 20 gauge in right antecubital area, using aseptic technique. tm6 Blood collected. Flushed with 10 mL NS. 17:12 BMP Sent. tm6 17:12 CBC with Diff Sent. tm6 17:15 Patient has correct armband on for positive identification. Bed in low position. Call tm6 light in reach. Side rails up X2. Provided Education on: use of call augustin. Discussed pain medication, if needed. Patient said she did not need anything at this time. Client placed on continuous cardiac and pulse oximetry monitoring. NIBP monitoring applied. Pulse ox on. NIBP on. Door closed. Noise minimized. Warm blanket given. Pillow given. 18:21 Lactate w/ 2H reflex if indic. Sent. tm6 18:21 Protime (+inr) Sent. tm6 18:21 Ptt, Activated Sent. tm6 18:21 Blood Culture Adult (2) Sent. tm6 18:26 Javon Lazcano MD is Hospitalizing Provider. ms3 18:37 EKG done, by ED staff, reviewed by Loy Broderick DO. tm6 20:29 No provider procedures requiring assistance completed. Patient admitted, IV remains in tm6 place. Administered Medications: 19:25 Drug: Piperacillin-Tazobactam IVPB 3.375 grams IVPB once over 60 mins; (mix in NS 100 tm6 mL) Route: IVPB; Infused Over: 60 mins; Site: right antecubital; 20:18 Follow up: Response: No adverse reaction; IV Status: Completed infusion; IV Intake: tm6 100ml 20:18 Drug: vancoMYCIN IVPB 1 grams IVPB once over 2 hrs Route: IVPB; Infused Over: 2 hrs; tm6 Site: right antecubital; Medication: 17:15 VIS not applicable for this client. tm6 Intake: 20:18 IV: 100ml; Total: 100ml. tm6 Outcome: 18:26 Decision to Hospitalize by Provider. ms3 20:29 Admitted to Med/surg accompanied by tech, via stretcher, with chart, tm6 20:29 Condition: stable 20:29 Instructed on the need for admit, 20:29 Patient left the ED. tm6 Signatures: Danielle Almonte, Reg Reg mr Marlyn Fitzpatrick, RN RN Loy Broderick DO DO ms3 Yasmeen Manzo, RN RN tm6
[2024-05-05 18:31] LABS: PT Prothrombin Time 11.6 SECONDS (9.4-12.5); PTT, Activated Partial Thromb 36.8 SECONDS (24.3-36.9); Protime INR 1.04
[2024-05-05] MEDS ORDERED: ACETAMINOPHEN 500 MG TAB PO PRN (19:22)
[2024-05-05] MEDS ORDERED: GLUCAGON 1 MG/VIAL IM PRN (19:22)
--- NOTE | 2024-05-05 19:22 | P.HP ---
Certification for Inpatient With expected LOS: >2 Midnights Practitioner: I am a practitioner with admitting privileges, knowledge of patient current condition, hospital course, and medical plan of care. Services: Services provided to patient in accordance with Admission requirements found in Title 42 Section 412.3 of the Code of Federal Regulations Patient History Date of Service: 05/05/24 Reason for admission: left foot infection History of Present Illness: 84-year-old female with history of insulin-dependent diabetes, peripheral vascular disease, neuropathy, hypertension presented from surgery office with complaints of worsening wound infection. The patient does have a history of stubbing her toe Has been to 2 different wound centers. Without much improvement. She does report increased welling and redness. She denies any fevers but states that she had chills initially in the emergency room. She was also noted to be tachycardic Allergies No Known Allergies Allergy (Verified 06/27/20 10:50) Review of Systems 10-point ROS is otherwise unremarkable General: Chills Musculoskeletal: Foot Pain Integumentary: Rash, Other Physical Examination - Physical Exam General: Alert, Oriented x3 HEENT: Atraumatic, Normocephalic Respiratory: Clear to auscultation bilaterally, Normal air movement Cardiovascular: Regular rate/rhythm, Normal S1 S2, Other Gastrointestinal: Normal bowel sounds, Soft and benign Integumentary: Other (left foot swollen red, and edematous) - Studies Laboratory Data (last 24 hrs) 05/05/24 05/05/24 05/05/24 18:08 17:11 17:11 WBC 11.50 H Hgb 10.8 L Hct 34.0 L Plt Count 286 PT 11.6 INR 1.04 APTT 36.8 Sodium 140 Potassium 4.1 BUN 27 H Creatinine 1.28 H Glucose 128 H Assessment and Plan - Problems (Diagnosis) (1) Cellulitis Current Visit: Yes Status: Acute (2) Diabetes Current Visit: Yes Status: Acute (3) Peripheral vascular disease Current Visit: Yes Status: Acute - Plan 84-year-old female with history of insulin-dependent diabetes, peripheral vascular disease, neuropathy, hypertension presented from surgery office with complaints of worsening wound infection. #sepsis #left foot cellulitis #left foot wound/ulcer #IDDM #Neuropathy #PVD #HTN plan: 1 admit to med surg with telemetry 2. IVF 3. continue IV vancomycin and Zosyn, followup cultures 4. await home medication reconciliation 5. fsbs, ssi 6. ID consult 7. MRI left foot 8. surgery consult, discussed. ok to continue anticoagulation for now - Advance Directives Does patient have a Living Will: No Does patient have a Durable POA for Healthcare: No
[2024-05-05] MEDS ORDERED: VANCOMYCIN 1 GM in NA CHLORIDE 0.9% 250 ML IVPB SCH (19:31)
[2024-05-05] MEDS: VANCOMYCIN 250 MG in NA CHLORIDE 0.9% 100 ML IVPB ONE (21:00)
[2024-05-05] MEDS: INSULIN REGULAR (HUMAN) 100 UNIT/ML SQ SCH (21:26)
[2024-05-05] MEDS: NA CHLORIDE 0.9% 1,000 ML IV SCH (21:53)
[2024-05-05] MEDS: WATER FOR INJ,STERILE 10 ML ONE (21:56)
[2024-05-06] MEDS: PIPER TAZO 3.375 GM in NA CHLORIDE 0.9% 100 ML IV SCH (01:51)
[2024-05-06] MEDS: PREGABALIN 50 MG CAP PO PRN (03:51)
[2024-05-06 07:07] LABS: ALT/SGPT < 14 U/L (13-56); AST/SGOT 11 U/L (15-37); Absolute Basophils 0.1 K/uL (0-0.5); Absolute Eosinophils 0.2 K/uL (0-0.5); Absolute Lymphocytes (CBC) 1.8 K/uL (0.7-4.9); Absolute Monocytes 0.8 K/uL (0.1-1.3); Absolute Neutrophil 5.9 K/uL (1.8-8.0); Albumin 2.7 g/dL (3.4-5.0); Albumin/Globulin Ratio 0.8 (1.1-1.8); Alkaline Phosphatase 85 U/L (45-117); Anion Gap 8.3 mEq/L (5.0-15.0); BUN Blood Urea Nitrogen 23 mg/dL (7-18); Basophils % 0.7 % (0-1.3); Bicarbonate 26 mEq/L (21-32); Bilirubin Total 0.5 mg/dL (0.2-1.0); Globulin 3.4 g/dL (2.3-3.5); Glomerular Filtration Rate 42 ml/min (=/>90); Glucose Level 127 mg/dL (74-106); Hematocrit 28.3 % (36.0-45.0); Hemoglobin 9.3 g/dL (12.0-15.0); Lymphocytes % 20.8 % (15.3-44.8); MCH 29.3 pg (27.0-35.0); MCHC 32.7 g/dL (32.0-36.0); MCV 89.8 fL (80-100); MPV 8.1 fL (7.6-11.3); Monocytes % 9.5 % (3.3-12.3); Platelets 210 thou/uL (152-406); Potassium 4.3 mEq/L (3.5-5.1); Protein, Total 6.1 g/dL (6.4-8.2); RBC Red Blood Cell Count 3.16 M/uL (3.86-4.86); Red Cell Distribution Width 14.1 % (12.1-15.2); Sodium Level 141 mEq/L (136-145)
--- NOTE | 2024-05-06 07:49 | P.PN ---
Date of Service: 05/06/24 subjective Afebrile overnight, moderate pain left lower extremity Review of Systems 10-point ROS is otherwise unremarkable Physical Examination vital signs Reviewed - Physical Exam General: Alert, Oriented x3 HEENT: Atraumatic, Normocephalic Respiratory: Clear to auscultation bilaterally, Normal air movement Cardiovascular: Regular rate/rhythm, Normal S1 S2, Other Gastrointestinal: Normal bowel sounds, Soft and benign Integumentary: other (left foot swollen red, and edematous) Neurological: Alert oriented x 3, no focal deficits Assessment and Plan - Problems (Diagnosis) Osteomyelitis to left third toe SIRS secondary to left foot cellulitis Acute cellulitis left foot diabetic left foot wound 84-year-old female with history of insulin-dependent diabetes, peripheral vascular disease, neuropathy, hypertension presented from surgery office with complaints of worsening wound infection. Surgery eval Dr. Herndon Wound care IVF, IV vancomycin and Zosyn, followup cultures Infectious disease consult MRI of the left foot Mild to moderate osteomyelitis is present involving the third toe. Doppler left lower extremity Occluded segment involving most of the posterior tibial artery scanned portions. Mostly monophasic waveforms distally with patent dorsalis pedis artery, with advanced burden of atherosclerotic changes. Patent left popliteal artery stent. Intractable left foot pain Occluded posterior r tibial artery Left lower EXTR advanced burden of atherosclerotic On Xarelto, Brilinta Need to follow-up with vascular surgery after discharge insulin-dependent diabetes mellitus Accu-Cheks, sliding scale Resume home long-acting insulin Peripheral vascular disease Peripheral neuropathy Resume appropriate home meds Lyrica essential hypertension-uncontrolled Resume appropriate home meds Chronic anticoagulation Anticoagulation at this time Xarelto, Brilinta Full code Diet diabetic SCDs continue chronic anticoagulation Disposition Home likely with IV antibiotic - Advance Directives Does patient have a Living Will: No Does patient have a Durable POA for Healthcare: No <Luma Black - Last Filed: 05/06/24 16:27> Patient seen and examined, plan of care discussed with Lew Sofia. Patient complaining of left leg pain. She has a small ulcer on medial aspect of the left third toe. Pain is disproportionate to the wound and patient attributes her pain to neuropathy. Arterial Doppler shows complete occlusion of the left posterior tibial artery Patient stated she recently underwent angioplasty in the left lower leg. She also reported unsuccessful attempt at bypass on the left leg and occluded stent in the left lower leg. Analgesics as needed Pregabalin dose increased to 100 mg at bedtime [place] as needed Continue antibiotics for possible wound infection. Dr. Herndon to follow. <param luna - Last Filed: 05/06/24 18:28>
[2024-05-06] MEDS: RIVAROXABAN 10 MG TABLET PO SCH (07:56)
[2024-05-06] MEDS: TICAGRELOR 90 MG TABLET PO SCH (08:02)
[2024-05-06] MEDS ORDERED: D50W 25 GM/50 ML SYRINGE IV PRN (10:40)
[2024-05-06] MEDS ORDERED: GLUCAGON 1 MG/VIAL IM PRN (10:40)
--- NOTE | 2024-05-06 12:30 | RAD REPORT ---
EXAM: MRI of the left foot without contrast HISTORY: Evaluate for osteomyelitis. [facility] N ulcer COMPARISON: 03/27/2024 plain radiograph TECHNIQUE: Multiplanar multisequence MR images were obtained of the left foot without contrast. FINDINGS: Diminished T1 signal is seen in the third toe particularly the proximal phalanx distal aspect, middle phalanx as well as distal phalanx. Elevated T2 correlate signal is seen as well. The fourth toe demonstrates a very subtle diminished T1 signal in the distal phalanx. No focal fluid collection is s een in the soft tissues. Mild marrow edema is suspected involving the third metatarsal head. The muscles and tendons appear intact. No fracture is seen. IMPRESSION: Mild to moderate osteomyelitis is present involving the third toe. Please note that evaluation is limited without IV contrast.
[2024-05-06] MEDS: INSULIN NPH (HUMAN) 100 UNITS/ML SQ SCH (12:51)
--- NOTE | 2024-05-06 14:12 | RAD REPORT ---
EXAMINATION:Lower Extremity Artery [employer] CLINICAL INDICATION: Female, 84 years old. [facility] MAIN left LE left 3rd toe gangrene TECHNIQUE: Arterial duplex ultrasound was performed of the Left lower extremity with real-time, color -flow, and spectral wave Doppler evaluation. COMPARISON: 03/26/2024 FINDINGS: Advanced atherosclerotic plaque throughout the evaluated arterial system. Biphasic waveforms seen anyi ng the left common femoral and superficial femoral arteries. Monophasic waveforms are seen along the left popliteal artery and stent, and dorsalis dorsalis pedis artery, with no appreciable flow anyi ng the left posterior tibial artery. IMPRESSION: Occluded segment involving most of the posterior tibial artery scanned portions. Mostly monophasic wa veforms distally with patent dorsalis pedis artery, with advanced burden of atherosclerotic changes. Patent left popliteal artery stent.
[2024-05-06] MEDS: HYDROCODONE/APAP 5/325 MG TAB PO PRN (18:30)
[2024-05-06] MEDS ORDERED: PREGABALIN 50 MG CAP PO SCH (21:00)
[2024-05-06] MEDS: PREGABALIN 50 MG CAP PO SCH (21:10)
[2024-05-06] MEDS: CEFEPIME 1 GM in NA CHLORIDE 0.9% 100 ML IV SCH (21:10)
--- NOTE | 2024-05-07 06:38 | P.PN ---
Subjective Date of Service: 05/07/24 Chief Complaint: left foot infection Subjective: Improving (per pt report) Review of Systems 10-point ROS is otherwise unremarkable General: Unremarkable Eyes: Unremarkable ENT: Unremarkable Respiratory: Unremarkable Cardiovascular: Unremarkable Gastrointestinal: Unremarkable Genitourinary: Unremarkable Musculoskeletal: As per HPI Integumentary: As per HPI Neurological: Unremarkable Lymphatics: Unremarkable Physical Examination - Vital Signs Temperature: 97.0 F Blood Pressure: 129/62 Pulse: 80 Respirations: 17 Pulse Ox (%): 97 - Physical Exam General: Alert, In no apparent distress, Oriented x3 HEENT: Atraumatic, Normocephalic Neck: Supple Respiratory: Clear to auscultation bilaterally Cardiovascular: Regular rate/rhythm, Normal S1 S2, Edema Capillary refill: <2 Seconds Gastrointestinal: Normal bowel sounds Musculoskeletal: No clubbing, Other (left third toe appears thickened -MRI planned) Integumentary: Other (wound to left foot at plantar 5th metatarsal area- healing ulcer. between 2nd and 3rd toe with splitting and thickening of 3rd toe, dorsal 3rd-5th metarsal area with erythema, trending toward brown appearance) Neurological: Normal speech, Normal tone, Normal affect Lymphatics: No axilla or inguinal lymphadenopathy External genitalia: Deferred Rectal: Deferred Assessment And Plan - Plan Assessment and Plan - Problems (Diagnosis) (1) Cellulitis Current Visit: Yes Status: Acute (2) Diabetes Current Visit: Yes Status: Acute (3) Peripheral vascular disease Current Visit: Yes Status: Acute - Plan 84-year-old female with history of insulin-dependent diabetes, peripheral vascular disease, neuropathy, hypertension presented from surgery (Dr. Herndon) office with complaints of worsening wound infection. #sepsis #left foot cellulitis #left foot wound/ulcer #IDDM #Neuropathy #PVD #HTN plan: 1 admit to med surg with telemetry 2. IVF 3. continue IV vancomycin and Cefepime, followup cultures 4. await home medication reconciliation 5. fsbs, ssi 6. ID consult 7. MRI left foot 8. surgery consult, discussed. ok to continue anticoagulation for now 05/07/24 left doral foot appears less erythematous (per pt), crusting between second and third toe, third toe with edema and wound from interdigit space up toward distal phalanx. no bleeding or purulence. mild lower leg edema noted today (pt states this has improved as well) pain well controlled with [place] Cefepime and Vanco continue. Pt has a little worsening today of CARLOS, creatinine 1.41 - will continue to monitor Pt continues on Xarelto and Brilinta - Advance Directives Does patient have a Living Will: No Does patient have a Durable POA for Healthcare: No - Code Status/Comfort Care Code Status Assessed: Yes (Full) Time Spent Managing PTS Care (In Minutes): 28
[2024-05-07 07:49] LABS: Absolute Basophils 0.1 K/uL (0-0.5); Absolute Eosinophils 0.2 K/uL (0-0.5); Absolute Lymphocytes (CBC) 1.9 K/uL (0.7-4.9); Absolute Monocytes 0.8 K/uL (0.1-1.3); Absolute Neutrophil 7.1 K/uL (1.8-8.0); Basophils % 0.9 % (0-1.3); Eosinophils % 2.3 % (0-4.4); Hematocrit 30.1 % (36.0-45.0); Hemoglobin 9.9 g/dL (12.0-15.0); Lymphocytes % 19.1 % (15.3-44.8); MCH 29.1 pg (27.0-35.0); MCHC 32.8 g/dL (32.0-36.0); MCV 88.9 fL (80-100); MPV 7.5 fL (7.6-11.3); Neutrophils % 69.7 % (41.7-73.7); Platelets 265 thou/uL (152-406); RBC Red Blood Cell Count 3.38 M/uL (3.86-4.86)
[2024-05-07 08:03] LABS: ALT/SGPT < 14 U/L (13-56); AST/SGOT 14 U/L (15-37); Albumin 2.8 g/dL (3.4-5.0); Albumin/Globulin Ratio 0.7 (1.1-1.8); Alkaline Phosphatase 86 U/L (45-117); Anion Gap 9.8 mEq/L (5.0-15.0); BUN Blood Urea Nitrogen 28 mg/dL (7-18); Bicarbonate 23 mEq/L (21-32); Bilirubin Total 0.4 mg/dL (0.2-1.0); Globulin 3.8 g/dL (2.3-3.5); Glomerular Filtration Rate 37 ml/min (=/>90); Glucose Level 244 mg/dL (74-106); Magnesium 2.2 mg/dL (1.6-2.4); Potassium 4.8 mEq/L (3.5-5.1); Protein, Total 6.6 g/dL (6.4-8.2); Sodium Level 138 mEq/L (136-145)
[2024-05-07] MEDS ORDERED: INSULIN NPH (HUMAN) 100 UNITS/ML SQ SCH (09:00)
[2024-05-07] MEDS: VANCOMYCIN 1.25 GM in NA CHLORIDE 0.9% 250 ML IVPB SCH (10:20)
--- NOTE | 2024-05-07 16:58 | EKG ---
Test Date: 2024-05-05 Test Time: 18:32:31 [employer] Leader: DELFINA MEASUREMENT RESULTS: Intervals: Rate: 101 OR: 166 QRSD: 94 QT: 348 QTc: 451 [place]: P: 67 OR: 166 QRS: 69 T: 75 INTERPRETIVE STATEMENTS: Sinus tachycardia Otherwise normal ECG Compared to ECG 01/21/2024 15:16:30 Sinus rhythm no longer present Electronically Signed On 05-07-24 16:51:44 CDT by Oscar Montilla
[2024-05-07] MEDS: MORPHINE 2 MG/ML SYR IV PRN (17:09)
[2024-05-07] MEDS: NITROGLYCERIN 1 GM PKT TD ONE (17:09)
--- NOTE | 2024-05-07 18:45 | CON ---
History Of Present Illness: This is an 84-year-old female with diabetes mellitus and peripheral vasc ular disease, neuropathy, hypertension, coming in for worsening infection of the left foot and discom fort. Past medical history as per HPI. Denies any headache, nausea, vomiting, chest pain, abdominal pain, constipation, diarrhea. Past Medical History: As per HPI. Social History: Nonsmoker, nondrinker. Family History: Noncontributory. Medications: Cefepime, vancomycin, see MAR for other medications. Allergies: NO KNOWN DRUG ALLERGIES. Review of Systems: 10-point review was performed. Physical Examination: General: This is an 84-year-old female, lying in bed, not in any acute cardiopulmonary distress. Vital Signs: Temperature 97, pulse 80, respirations 17, blood pressure 129/62. HEENT: Unremarkable. Neck: Supple. Lungs: Basal crackles. Heart: S1, S2, regular. Abdomen: Soft, nontender. Bowel sounds present. Extremities: Trace edema. Erythematous changes noted. Small area of scaly skin noted on the volar aspect of the foot. Lab: WBC 11.5, down to 10.2, hemoglobin 9.9, platelets are 265. Chemistry shows BUN of 28, creatini ne 1.4. Albumin level is 2.8. Micro data, blood cultures preliminary report in 24 hours, no growth. MRI report shows the patient has itof-ol-nrmwigol osteomyelitis involving the third toe. Assessment And Plan: Osteomyelitis of the left third toe with ulceration secondary to tinea pedis an d onychomycosis also noted in this patient with significant past medical history of diabetes mellitus , diabetic neuropathy and peripheral vascular disease. The patient's A1c used to be 11 and is now do wn to 7 because of her insulin treatment. Currently, the patient is on vancomycin and cefepime. We will recommend to continue antibiotic for 6 weeks. Monitor CBC and BMP Mondays and and van comycin trough level every Saturday and . Follow up with primary care doctor. We will follow the patient as needed. I also recommend to apply Lamisil to the onychomycosis and athlete foot area. We will follow the patient as needed. Thank you Dr. Torres for consult. NF/MODL Voice ID: [id number] Report ID: [id number]
--- NOTE | 2024-05-07 19:39 | PN ---
Date of Progress Note: 05/07/2024 Reason For Service: Cellulitis of the left foot with osteomyelitis. Subjective: The patient is doing better. She was seen by Infectious Disease. She understood the pl an for the future. From the surgical standpoint, the wound at this moment looks clean. There is a woun d located between the toes and near the third metatarsal region head that may be the source of this. The redness is under control at this moment. It is still erythematosus and edematous. Plan: osteomyelitis. Continue same wound care. [facility] when discha rged. CYNTHIA/LAVERN Voice ID: [id number] Report ID: [id number]
--- NOTE | 2024-05-07 23:39 | CON ---
Date of Consultation: 05/06/2024 This patient was seen in the floor. History Of Present Illness: Ms. Cespedes is an 84-year-old patient known by us since the day before we saw her at the [facility] and noticed the patient to have a cellulitis over the left foot r egion extending to the leg with an open wound present. We suspect the patient could have osteomyelit is. She also has peripheral vascular disease and she was recommended to come to the ER. She came to the ER, gets admitted, and a surgical consult was obtained today by the primary doctor. There is a foot pain and there is erythema and swelling of the left leg and left foot. Review of Systems: Ten points otherwise unremarkable. Physical Examination: Vital Signs: Review. General: The patient is awake, alert, oriented x3. HEENT: Pupils are equal and reactive. Anicteric. Neck: Supple. Chest: Clear. Heart: S1, S2. Abdomen: Soft and depressible. Extremities: Diminished pulses bilaterally in the lower extremities, which is something chronic on h er case, but is still significant for delayed healing. She also has an open wound over the knee at t he base of the third toe. That area has been cleaned before [facility]. There is redness over the foot area dorsum and plantar, also in the mid leg. There is no Sue s signs present. No crepitus. Imaging: The MRI of the foot shows [id number] osteomyelitis involving the third toe. Assessment: An 84-year-old patient is sent to the ER for cellulitis and induration of her wounds, fo und to have osteomyelitis. I discussed with her the MRI result and the possible plan. Obviously, we request Dr. Omalley to evaluate the patient and follow his recommendations for IV antibiotics. We st ill when she gets discharged like to see this patient at the [facility] because we still angel ve some work to do concerning her wounds, but at the same time, we explained to her the need of diabe claudia control. HM/MODL Voice ID: [id number] Report ID: [id number]
[2024-05-08] MEDS: ALBUTEROL 2.5 MG/3 ML NEB SOL NEB SCH (00:10)
[2024-05-08] MEDS: FUROSEMIDE 40 MG/4 ML VIAL IV ONE ×2 (01:34→22:53)
--- NOTE | 2024-05-08 01:35 | RAD REPORT ---
XAM DESCRIPTION: XR CHEST 1 VIEW 05/08/2024 12:58 AM CDT CLINICAL HISTORY: 84 years, Female, SOB. COMPARISON: XR Chest 04/28/2024. FINDINGS: 1 view of the chest (AP portable projection) was obtained. Prior films were compared. There is norm al lung volume. Mediastinum: The cardiomediastinal silhouette appears normal in size and shape. Lungs: There is a focal area of airspace opacity within the right lower lung zone. Heart: The heart is normal in size. Thoracic aorta: The thoracic aorta demonstrate to be mildly tortuous. Pulmonary vasculature: The pulmonary vasculature is normal in distribution. Pleura: The costophrenic angles demonstrate to be sharp. Osseous structures: The bony structures demonstrate to be within normal limits. Other: External EKG leads within the [id number] limits diagnosis. IMPRESSION: Focal area of airspace opacity right lower lung zone, concerning for pneumonia. Electronically signed by: Rafi Floyd MD 05/08/2024 01:28 AM CDT RP Due to temporary technical issues with the PACS/[employer] reporting system, reports are being mai d by the in-house radiologist without review as a courtesy to ensure prompt reporting the interpreting radiologist is fully responsible for the content of the report. Transcribed Date/Time: 05/08/2024 1:35 AM
[2024-05-08 08:05] LABS: Absolute Lymphocytes (CBC) 0.8 K/uL (0.7-4.9); Absolute Monocytes 0.8 K/uL (0.1-1.3); Absolute Neutrophil 9.3 K/uL (1.8-8.0); Basophils % 0.4 % (0-1.3); Eosinophils % 0.3 % (0-4.4); Hematocrit 26.5 % (36.0-45.0); Hemoglobin 8.5 g/dL (12.0-15.0); Lymphocytes % 7.3 % (15.3-44.8); MCH 29.1 pg (27.0-35.0); MCHC 32.2 g/dL (32.0-36.0); MCV 90.4 fL (80-100); MPV 8.2 fL (7.6-11.3); Monocytes % 6.9 % (3.3-12.3); Neutrophils % 85.1 % (41.7-73.7); Platelets 239 thou/uL (152-406); RBC Red Blood Cell Count 2.93 M/uL (3.86-4.86); Red Cell Distribution Width 14.6 % (12.1-15.2)
[2024-05-08 08:19] LABS: AST/SGOT 14 U/L (15-37); Albumin 2.7 g/dL (3.4-5.0); Albumin/Globulin Ratio 0.7 (1.1-1.8); Alkaline Phosphatase 83 U/L (45-117); Anion Gap 10.8 mEq/L (5.0-15.0); BUN Blood Urea Nitrogen 35 mg/dL (7-18); Bicarbonate 24 mEq/L (21-32); Bilirubin Total 0.5 mg/dL (0.2-1.0); Globulin 3.8 g/dL (2.3-3.5); Glomerular Filtration Rate 29 ml/min (=/>90); Magnesium 2.1 mg/dL (1.6-2.4); Potassium 4.8 mEq/L (3.5-5.1); Protein, Total 6.5 g/dL (6.4-8.2); Sodium Level 136 mEq/L (136-145)
[2024-05-08 08:31] LABS: ALT/SGPT < 14 U/L (13-56); Glucose Level 404 mg/dL (74-106)
[2024-05-08 09:15] LABS: Blood Morphology Comment NOT SEEN (NOT SEEN); Platelet Estimate ADEQ; White Blood Cell Scan OK (OK)
[2024-05-08] MEDS: INSULIN NPH (HUMAN) 100 UNITS/ML SQ SCH (10:15)
[2024-05-08] MEDS: VANCOMYCIN 1.25 GM in NA CHLORIDE 0.9% 250 ML IVPB SCH (10:21)
--- NOTE | 2024-05-08 10:52 | P.PN ---
Subjective Date of Service: 05/08/24 Chief Complaint: left foot infection Subjective: Other (pt states left foot pain is much better. However, she started wheezing and requested treatments. Nebs started, CXR shows possible rll pneumonia. She is already rec'ing Merrem and vanc, noted increase in creatinine. Blood cultures neg, will continue to assess) Review of Systems 10-point ROS is otherwise unremarkable General: As per HPI Eyes: Unremarkable ENT: Unremarkable Respiratory: Cough, Wheezing Cardiovascular: Unremarkable Gastrointestinal: Unremarkable Genitourinary: Unremarkable Musculoskeletal: Other (pain improved) Integumentary: As per HPI Neurological: Unremarkable Lymphatics: Unremarkable Physical Examination - Vital Signs Temperature: 98.2 F Blood Pressure: 127/60 Pulse: 102 Respirations: 22 Pulse Ox (%): 100 - Physical Exam General: Alert, In no apparent distress, Oriented x3 HEENT: Atraumatic, Normocephalic Neck: Supple Respiratory: Expiratory wheezes, Other (Spo2 98-100%) Cardiovascular: Normal S1 S2, Other (slightly tachycardia), Edema Capillary refill: <2 Seconds Gastrointestinal: Normal bowel sounds Musculoskeletal: No clubbing, Other (third left toe edematous) Integumentary: Other (dorsum of foot with mild erythema, edema, cracked skin and thickening of medial third toe) Neurological: Normal speech, Normal tone, Normal affect Lymphatics: No axilla or inguinal lymphadenopathy External genitalia: Deferred Rectal: Deferred Assessment And Plan - Plan Assessment and Plan - Problems (Diagnosis) (1) Cellulitis Current Visit: Yes Status: Acute (2) Diabetes Current Visit: Yes Status: Acute (3) Peripheral vascular disease Current Visit: Yes Status: Acute - Plan 84-year-old female with history of insulin-dependent diabetes, peripheral vascular disease, neuropathy, hypertension presented from surgery (Dr. Herndon) office with complaints of worsening wound infection. #sepsis #left foot cellulitis #left foot wound/ulcer #IDDM #Neuropathy #PVD #HTN plan: 1 admit to med surg with telemetry 2. IVF 3. continue IV vancomycin and Cefepime, followup cultures 4. await home medication reconciliation 5. fsbs, ssi 6. ID consult 7. MRI left foot 8. surgery consult, discussed. ok to continue anticoagulation for now 05/07/24 left dorsal foot appears less erythematous (per pt), crusting between second and third toe, third toe with edema and wound from interdigit space up toward distal phalanx. no bleeding or purulence. mild lower leg edema noted today (pt states this has improved as well) pain well controlled with [place] Cefepime and Vanco continue. Pt has a little worsening today of CARLOS, creatinine 1.41 - will continue to monitor Pt continues on Xarelto and Brilinta 05/08/24 left dorsal foot with continued erythema, 3rd toe without much change left sharp paroxysms of pain relieved. NTG 1in paste yesterday, so far not repeated Cefepime and Vanco continue. will adjust as creatinine vernon again to 1.71 Chest x-ray yesterday with right lower lobe pneumonia concern. Nebs and I-S initiated. Pt continues on Xarelto and Brilinta - Advance Directives Does patient have a Living Will: No Does patient have a Durable POA for Healthcare: No Time Spent Managing PTS Care (In Minutes): 25
[2024-05-08] MEDS: DIAZEPAM 5 MG TABLET PO ONE (12:00)
[2024-05-08] MEDS: NITROGLYCERIN 1 GM PKT TD ONE (12:00)
[2024-05-08] MEDS: FUROSEMIDE 20 MG/ 2ML VIAL IV ONE (12:01)
[2024-05-08] MEDS: INSULIN NPH (HUMAN) 100 UNITS/ML SQ ONE (12:21)
[2024-05-08] MEDS: FUROSEMIDE 40 MG/4 ML VIAL IV SCH (12:31)
--- NOTE | 2024-05-08 16:01 | P.PN ---
Date of Service: 05/08/24 concerned for anxiety and persistent tachycardia. Repeat BC, draw lactate and tsh now, and give Metoprolol 25mg po q hs
[2024-05-08] MEDS: METOPROLOL XL 25 MG TAB PO ONE (16:23)
[2024-05-08] MEDS ORDERED: PROMETHAZINE INJ 25 MG/ML AMP IV ONE (17:45)
[2024-05-08] MEDS: METOPROLOL TARTRATE 5 MG/5 ML INJ IV ONE (18:06)
[2024-05-08] MEDS: PROMETHAZINE INJ 25 MG/ML AMP IV ONE (18:14)
[2024-05-08] MEDS: NA CHLORIDE 0.9% 500 ML IV ONE (18:14)
--- NOTE | 2024-05-08 19:07 | RAD REPORT ---
EXAM: CT brain without contrast HISTORY: cva COMPARISON: None TECHNIQUE: Multiple contiguous axial images were obtained and a CT of the brain without contrast. Sagittal and coronal reformats were performed. Automated exposure control, adjustment of the mA and/or kV according to patient size, and/or itera tive reconstruction. Unless otherwise specified, incidental findings do not require dedicated imaging follow-u FINDINGS: An intracranial bleed is not seen Ventricles are normal caliber No extra-axial fluid collection noted Small low-density area left occipital lobe No fluid within the visualized sinuses or mastoids noted. IMPRESSION: Small low-density area left occipital lobe. It is uncertain if this represents volume averaging of no rmal CSF or a small acute infarct. MRI is recommended. The patient's nurse Hortencia was notified 7:01 PM May 08, 2024.
[2024-05-08 19:22] LABS: Absolute Basophils 0.1 K/uL (0-0.5); Absolute Eosinophils 0.1 K/uL (0-0.5); Absolute Lymphocytes (CBC) 0.6 K/uL (0.7-4.9); Absolute Neutrophil 9.9 K/uL (1.8-8.0); Basophils % 0.5 % (0-1.3); Eosinophils % 0.5 % (0-4.4); Hematocrit 25.4 % (36.0-45.0); Hemoglobin 8.4 g/dL (12.0-15.0); Lymphocytes % 5.3 % (15.3-44.8); MCHC 32.8 g/dL (32.0-36.0); MCV 88.4 fL (80-100); MPV 7.6 fL (7.6-11.3); Monocytes % 8.6 % (3.3-12.3); Neutrophils % 85.1 % (41.7-73.7); Nucleated Red Blood Cells % 0.1 % (0-0); Platelets 239 thou/uL (152-406); RBC Red Blood Cell Count 2.88 M/uL (3.86-4.86); Red Cell Distribution Width 14.1 % (12.1-15.2)
--- NOTE | 2024-05-08 19:27 | RAD REPORT ---
EXAMINATION: CTA HEAD CLINICAL INDICATION: Right-sided weakness TECHNIQUE: Axial CT images were obtained through the head after 100 cc Isovue-370 intravenous contras t utilizing angiographic protocol with 3D post-processing (maximum intensity projection images, volume rendered images and/or shaded surface rendered images). One or more of the following dose red uction techniques were used: Automated exposure control, adjustment of the mA and/or kV according to patient size, and/or iterative reconstruction. Unless otherwise specified, incidental findings do not require dedicated imaging follow-up. COMPARISON: None FINDINGS: Distal internal carotid, basilar, anterior cerebral, middle cerebral and posterior cerebral arteries do not demonstrate a significant stenosis origin right posterior cerebral artery An aneurysm not noted No large vessel occlusion IMPRESSION: No acute vascular abnormality displayed
--- NOTE | 2024-05-08 19:28 | RAD REPORT ---
EXAMINATION: Neck Angio CLINICAL INDICATION: Right-sided weakness TECHNIQUE: Axial CT images were obtained from the aortic arch to the skull base after intravenous adm inistration of 100 cc Isovue-370 utilizing angiographic protocol. Multiplanar reformats, as well as 3D post-processing (maximum intensity projection images, volume rendered images and/or shaded surface rendered images) were generated and reviewed. One or more of the following dose reduction techniques were used: Automated exposure control, adjustment of the mA and/or kV according to patient size, and/or iterative reconstruction. Unless otherwise specified, incidental findings do not require dedicated imaging follow-up. COMPARISON: No prior exam. FINDINGS: The visualized aortic arch and great vessels do not demonstrate a significant abnormality. Calcified plaque left carotid bulb/proximal left internal carotid artery results in an approximately 40% stenosis. Moderate calcification distal left vertebral artery Mild plaque remainder of the common carotid, internal carotid and external carotid is bilaterally. Right vertebral artery unremarkable. No dissection seen. Methods for NASCET criteria: mild stenosis, 0% to 49%; moderate stenosis 50% to 69%; severe stenosis, 70% to 99% IMPRESSION: Moderate calcified plaque distal left vertebral artery
[2024-05-08 19:29] LABS: PT Prothrombin Time 16.4 SECONDS (9.4-12.5); PTT, Activated Partial Thromb 35.1 SECONDS (24.3-36.9); Protime INR 1.48
--- NOTE | 2024-05-08 19:32 | RAD REPORT ---
Procedure: Chest Single View History: Chest pain Comparison: April 28, 2024 Findings: Mild bilateral pulmonary opacities. Small bilateral pleural effusions The heart is borderline enlarged. IMPRESSION: Mild bilateral pulmonary opacities may indicate mild interstitial edema.
[2024-05-08 19:39] LABS: Anion Gap 11.1 mEq/L (5.0-15.0); Potassium 4.1 mEq/L (3.5-5.1)
--- NOTE | 2024-05-08 20:14 | P.PN ---
Date of Service: 05/08/24 Patient is a 84-year-old female who was admitted with left lower extremity wound. She is being managed medically with antibiotics. Code stroke was called today around 6:30 PM after patient developed a sudden onset of expressive aphasia and right-sided weakness. A stat CT revealed a small infarct in the left occipital lobe. Based on my conversation with neurology, the finding of a stroke on a CAT scan could indicate that he is at least 24-hour old. In addition, patient had already taken a dose of Xarelto this morning. These make her a poor candidate for tenecteplase. Therefore, this was not given. In addition, CT angio of the head and neck revealed a moderate calcified plaque of the left vertebral artery. Those are usually managed medically. Moving forward, patient will need to be on medical management and therapies. Plan: If she passes her swallow evaluation, she should be on dual antiplatelet therapy , high intensity statin and folic acid Rehab for PT/OT and speech therapy We may not have coverage for the above services over the weekend. Therefore, we will discuss with family regarding the option to transfer to a higher level of care.
[2024-05-08] MEDS: NYSTATIN OINT 15 GM TUBE TOP SCH (21:00)
[2024-05-08] MEDS ORDERED: METOPROLOL XL 25 MG TAB PO SCH (21:00)
[2024-05-08] MEDS: ATORVASTATIN 80 MG TAB PO SCH (22:54)
[2024-05-08] MEDS: FOLIC ACID 1 MG TABLET PO SCH (22:54)
[2024-05-08] MEDS: METHYLPREDNISOLONE 40 MG INJ IV ONE (23:19)
[2024-05-08] MEDS: D10W 125 ML IV PRN (23:39)
[2024-05-08 23:43] LABS: Arterial Blood Carboxyhemoglob 1.2 % (0-1.5); Blood Gas Oxyhemoglobin 91.1 % (94-97); Blood Gas THB 9.3 g/dl (12-18); Blood O2 Saturation 93.7 % (92-98.5)
[2024-05-08] MEDS: DEXTROSE 10%-WATER 500 ML IV SCH (23:50)
[2024-05-09] MEDS ORDERED: EPINEPHRINE INH 0.5 ML VIAL IH ONE (01:11)
[2024-05-09] MEDS: METHYLPREDNISOLONE 40 MG INJ IV ONE (01:21)
[2024-05-09] MEDS: EPINEPHRINE INH 0.5 ML VIAL IH STA (01:25)
[2024-05-09 03:59] LABS: Specific Gravity 1.013 (1.005-1.030); Sqamous Epithelial <5 /HPF (None Seen); Urine Bacteria None Seen /HPF (<20); Urine Bilirubin NEGATIVE (Negative); Urine Blood Negative (Negative); Urine Clarity Extremely Turbid (Clear); Urine Color Colorless (Yellow); Urine Culture Reflex Order NOT NEEDED; Urine Glucose NEGATIVE (Negative); Urine Ketones NEGATIVE (Negative); Urine Microscopic Reflex YN ORDER UMIC; Urine Mucus Slight /HPF (None Seen); Urine Nitrite NEGATIVE (Negative); Urine Protein NEGATIVE (Negative); Urine RBC <5 /HPF (None Seen); Urine Urobilinogen Normal (Normal); Urine WBC <5 /HPF (<5); Urine WBC Clump Rare /HPF (None Seen)
[2024-05-09 06:03] LABS: Absolute Lymphocytes (CBC) 0.4 K/uL (0.7-4.9); Absolute Monocytes 0.3 K/uL (0.1-1.3); Absolute Neutrophil 11.6 K/uL (1.8-8.0); Basophils % 0.4 % (0-1.3); Hemoglobin 8.9 g/dL (12.0-15.0); Lymphocytes % 3.6 % (15.3-44.8); MCH 29.5 pg (27.0-35.0); MCHC 32.9 g/dL (32.0-36.0); MCV 89.6 fL (80-100); MPV 8.4 fL (7.6-11.3); Monocytes % 2.1 % (3.3-12.3); Neutrophils % 93.9 % (41.7-73.7); Platelets 250 thou/uL (152-406); RBC Red Blood Cell Count 3.02 M/uL (3.86-4.86); Red Cell Distribution Width 14.3 % (12.1-15.2)
[2024-05-09 06:35] LABS: Albumin 2.7 g/dL (3.4-5.0); Albumin/Globulin Ratio 0.7 (1.1-1.8); Anion Gap 10.2 mEq/L (5.0-15.0); Bilirubin Total 0.4 mg/dL (0.2-1.0); Globulin 4.1 g/dL (2.3-3.5); Magnesium 2.1 mg/dL (1.6-2.4); Potassium 4.2 mEq/L (3.5-5.1); Protein, Total 6.8 g/dL (6.4-8.2)
[2024-05-09] MEDS: FUROSEMIDE 20 MG/ 2ML VIAL IV SCH (08:19)
[2024-05-09] MEDS ORDERED: INSULIN NPH (HUMAN) 100 UNITS/ML SQ SCH (09:00)
[2024-05-09] MEDS: INSULIN NPH (HUMAN) 100 UNITS/ML SQ SCH ×3 (09:57→18:06)
--- NOTE | 2024-05-09 12:15 | PN ---
Date of Progress Note: 05/09/2024 Reason For Service: Cellulitis and osteomyelitis of the foot. Subjective: The patient is doing well and is talkative right now. Oriented x3. Apparently overnigh t she had some neurological changes, and the medical doctors are trying to rule out any acute event. Objective: Vital Signs: Stable. Extremities: Lower extremity better, less erythema. The wound in between toes is getting even small er. No fluctuance seen. No crepitus. No Homans signs. Laboratory Data: Blood work shows WBC count of 12.3 and hemoglobin of 8.9. INR is 1.48. Glucose 29 8. Plan: From the surgical standpoint, continue same dressing changes. Continue antibiotics per ID. HM/MODL Voice ID: [id number] Report ID: [id number]
--- NOTE | 2024-05-09 14:17 | P.CNS ---
Date of Consult: 05/09/24 Reason for Consult: Renal failure Requesting Physician: Herbie Lucero Chief Complaint: left foot infection History of Present Illness: Nephro Dr. Boucher is not available today & requested me to evaluate the patient. 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 She developed acute stroke yesterday. 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 Serum creatinine is 1.3 on admission and increased to 1.6-1.7. Urinalysis showed no proteinuria/hematuria/pyuria. She received IV contrast on 05/08/2024. Allergies No Known Allergies Allergy (Verified 06/27/20 10:50) Home Medications: Insulin NPH Human Isophane [Novolin N] 20 unit SQ DAILY 05/05/24 Insulin Regular, Human [Novolin R] See Protocol SQ ACHS 05/05/24 Pregabalin [Lyrica] 50 mg PO BEDTIME 05/05/24 Rivaroxaban [Xarelto] 10 mg PO DAILY 05/05/24 Ticagrelor [Brilinta] 90 mg PO BID 05/05/24 lisinopriL [Lisinopril] 20 mg PO DAILY 05/05/24 Pentoxifylline 400 mg PO BID 05/09/24 - Past Medical/Surgical History -: DM -: HTN - Social History Alcohol use: No CD- Drugs: No Caffeine use: Yes Place of Residence: Home Review of Systems General: Weakness Eyes: Unremarkable ENT: Unremarkable Respiratory: Unremarkable Cardiovascular: Unremarkable Gastrointestinal: Unremarkable Genitourinary: Unremarkable Musculoskeletal: Unremarkable Integumentary: Other (L foot wound) Neurological: Weakness Lymphatics: Unremarkable Physical Examination Temp Pulse Resp BP Pulse Ox 97.2 F 87 18 124/54 L 95 05/09/24 12:00 05/09/24 13:00 05/09/24 13:00 05/09/24 13:00 05/09/24 13:00 General: In no apparent distress HEENT: Atraumatic, Normocephalic Neck: Supple, JVD not distended Respiratory: Clear to auscultation bilaterally, Other (symmetric chest expansion) Cardiovascular: No rubs, No murmurs Gastrointestinal: Soft and benign, No guarding Musculoskeletal: No clubbing Integumentary: Other (L foot wound) Neurological: Normal speech, Normal affect Urinary: Other (no bladder distention) External genitalia: Deferred Rectal: Deferred Conclusions/Impression: # CARLOS likely 2/2 prerenal state + ATN from relative hypotension SCr 1.3 on adm, increased to 1.7 yesterday, at 1.6 today Urinalysis showed no proteinuria/hematuria/pyuria F/u random urine chem, UPCR, renal US, CPK, iPTH, 25OHD, CPK, Phosphorus [place] po fluid intake at least 2 L/day She received IV contrast on 05/08/2024. Monitor for contrast nephropathy in the next 1-2 days. 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
--- NOTE | 2024-05-09 15:51 | P.PN ---
Subjective Date of Service: 05/09/24 Chief Complaint: left foot infection Subjective: Improving (Code stroke called on patient yesterday evening, CT showed occipital infarct, patient alert, oriented, moving all extremities, seemingly back to baseline) Review of Systems 10-point ROS is otherwise unremarkable General: Unremarkable Eyes: Unremarkable ENT: Unremarkable Respiratory: Unremarkable Cardiovascular: Unremarkable Gastrointestinal: Unremarkable Genitourinary: Unremarkable Musculoskeletal: Unremarkable Integumentary: Other (Left lower extremity with scabbing between second and third toe, decreased erythema) Neurological: Other (Patient states she is feeling back to normal) Lymphatics: Unremarkable Physical Examination - Vital Signs Temperature: 97.2 F Blood Pressure: 106/44 Pulse: 94 Respirations: 16 Pulse Ox (%): 97 - Physical Exam General: Alert, In no apparent distress, Oriented x3 HEENT: Atraumatic, Normocephalic Neck: Supple Respiratory: Other (No wheezing today, minimal congestion) Cardiovascular: Normal pulses, Regular rate/rhythm, Other (Tachycardia resolved) Capillary refill: <2 Seconds Gastrointestinal: Normal bowel sounds Musculoskeletal: No swelling, No contractures Integumentary: Other (Left lower extremity with scabbing between second and third toes minimal erythema, nitro remains to foot peripheral pulse palpable) Neurological: Normal speech, Normal tone, Normal affect Lymphatics: No axilla or inguinal lymphadenopathy Urinary: Other (Voiding well) External genitalia: Deferred Rectal: Deferred Assessment And Plan - Plan Assessment and Plan - Problems (Diagnosis) (1) Cellulitis Current Visit: Yes Status: Acute (2) Diabetes Current Visit: Yes Status: Acute (3) Peripheral vascular disease Current Visit: Yes Status: Acute - Plan 84-year-old female with history of insulin-dependent diabetes, peripheral vascular disease, neuropathy, hypertension presented from surgery (Dr. Herndon) office with complaints of worsening wound infection. #sepsis #left foot cellulitis #left foot wound/ulcer #IDDM #Neuropathy #PVD #HTN plan: 1 admit to med surg with telemetry 2. IVF 3. continue IV vancomycin and Cefepime, followup cultures 4. await home medication reconciliation 5. fsbs, ssi 6. ID consult 7. MRI left foot 8. surgery consult, discussed. ok to continue anticoagulation for now 05/07/24 left dorsal foot appears less erythematous (per pt), crusting between second and third toe, third toe with edema and wound from interdigit space up toward distal phalanx. no bleeding or purulence. mild lower leg edema noted today (pt states this has improved as well) pain well controlled with [place] Cefepime and Vanco continue. Pt has a little worsening today of CARLOS, creatinine 1.41 - will continue to monitor Pt continues on Xarelto and Brilinta 05/08/24 left dorsal foot with continued erythema, 3rd toe without much change left sharp paroxysms of pain relieved. NTG 1in paste yesterday, so far not repeated Cefepime and Vanco continue. will adjust as creatinine vernon again to 1.71 Chest x-ray yesterday with right lower lobe pneumonia concern. Nebs and I-S initiated. Pt continues on Xarelto and Brilinta 05/09/2024 Yesterday evening around 1830 code stroke was called, patient had right-sided weakness and slurred speech. Occipital stroke identified. Patient on Brilinta, Xarelto, not a tPA candidate. Dr. Jones was consulted last pm and suggested medical management Patient remains on statin Patient showed med list with inclusion of Trental 400 mg p.o. twice daily, requested reinitiation. Orders placed This morning Ms. Cespedes is completely back to her baseline, she is alert oriented, moving all extremities well, no slurred speech, no dysphagia, NIH stroke scale 0. She also does not appear as anxious, tachycardia resolved. - Advance Directives Does patient have a Living Will: No Does patient have a Durable POA for Healthcare: No
--- NOTE | 2024-05-09 17:07 | RAD REPORT ---
EXAMINATION: US RENAL ULTRASOUND CLINICAL INDICATION: CARLOS, CKD3, assess for hydronephrosis CKD changes TECHNIQUE: Real-time ultrasonography of the abdomen was performed. COMPARISON: 02/20/2022 FINDINGS: RIGHT KIDNEY: Right renal length measurement: 8.6 x 4.6 cm. Normal in echogenicity and size. No calc ulus, solid mass or hydronephrosis. LEFT KIDNEY: Left renal length measurement: 8.5 x 5.5 cm. Normal in echogenicity and size. No calculu s, solid mass or hydronephrosis. URINARY BLADDER: Incompletely distended without gross abnormality detected. ADDITIONAL FINDINGS: None. IMPRESSION: Unremarkable renal ultrasound.
--- NOTE | 2024-05-09 17:38 | RAD REPORT ---
EXAMINATION: CT CHEST WITHOUT CONTRAST CLINICAL INDICATION: SOB, elevated BNP, assess for pulmo edema, pna TECHNIQUE: Routine CT scan of the chest without intravenous contrast. One or more of the following do se reduction techniques were used: Automated exposure control, adjustment of the mA and/or kV according to patient size, and/or iterative reconstruction. Unless otherwise specified, incidental fi ndings do not require dedicated imaging follow-up. COMPARISON: 05/08/2024 chest radiograph FINDINGS: LOWER NECK: Visualized thyroid gland and soft tissues are normal. LUNGS: The lungs are clear. No evidence of airspace or interstitial process. No worrisome nodules. PLEURA: Small bilateral pleural effusions. MEDIASTINUM AND LYMPH NODES: No mediastinal mass or fluid collection. Normal size mediastinal, hilar, and axillary lymph nodes. OSSEOUS STRUCTURES AND CHEST WALL: Intact. UPPER ABDOMEN: No significant abnormalities. IMPRESSION: Small bilateral pleural effusions. Examination limited by lack of IV contrast.
[2024-05-09 17:47] LABS: Phosphorus 4.3 mg/dL (2.5-4.9)
[2024-05-09] MEDS ORDERED: GLUCAGON 1 MG/VIAL IM PRN (18:04)
[2024-05-09] MEDS ORDERED: D50W 25 GM/50 ML SYRINGE IV PRN (18:04)
[2024-05-09] MEDS: INSULIN GLARGINE 100 UNIT/ML SQ SCH (19:49)
[2024-05-09] MEDS ORDERED: METOPROLOL XL 25 MG TAB PO SCH (21:00)
[2024-05-09] MEDS: VANCOMYCIN 1.25 GM in NA CHLORIDE 0.9% 250 ML IVPB SCH (21:00)
[2024-05-09] MEDS: Mupirocin NASAL 2 APPL/1 GM TUBE NAS SCH (21:27)
[2024-05-09] MEDS: PENTOXIFYLLINE ER 400 MG TAB PO SCH (21:29)
[2024-05-10 01:55] LABS: UR PROTEIN 45.5 mg/dL (<11.9); Urine Protein/Creatinine Ratio 0.65 ratio (<0.15)
--- NOTE | 2024-05-10 02:42 | RAD REPORT ---
CLINICAL HISTORY: PICC placement. COMPARISON: XR Chest 05/08/2024. TECHNIQUE: XR CHEST 1 VIEW 05/10/2024 12:41 AM CDT FINDINGS: Cardiac silhouette is normal in size. Lungs are clear without consolidation, atelectasis, mass or adriana ma. There is no pleural effusion. There is no pneumothorax. There are no acute osseous findings. Right PICC line tip is in the lower SVC. IMPRESSION: Clear lungs. Electronically signed by: Jean Paul Echeverria MD 05/10/2024 01:49 AM CDT RP Due to temporary technical issues with the PACS/[employer] reporting system, reports are being mai d by the in-house radiologist without review as a courtesy to ensure prompt reporting the interpreting radiologist is fully responsible for the content of the report. Transcribed Date/Time: 05/10/2024 2:42 AM
[2024-05-10 05:14] LABS: Absolute Basophils 0.1 K/uL (0-0.5); Absolute Eosinophils 0.1 K/uL (0-0.5); Absolute Lymphocytes (CBC) 1.6 K/uL (0.7-4.9); Absolute Monocytes 1.5 K/uL (0.1-1.3); Absolute Neutrophil 14.2 K/uL (1.8-8.0); Basophils % 0.3 % (0-1.3); Eosinophils % 0.8 % (0-4.4); Hemoglobin 8.9 g/dL (12.0-15.0); Lymphocytes % 9.2 % (15.3-44.8); MCH 28.7 pg (27.0-35.0); Monocytes % 8.4 % (3.3-12.3); Neutrophils % 81.3 % (41.7-73.7); Platelets 333 thou/uL (152-406); Red Cell Distribution Width 14.5 % (12.1-15.2)
[2024-05-10 05:32] LABS: AST/SGOT 16 U/L (15-37); Albumin 2.5 g/dL (3.4-5.0); Albumin/Globulin Ratio 0.6 (1.1-1.8); Alkaline Phosphatase 81 U/L (45-117); Anion Gap 11.7 mEq/L (5.0-15.0); BUN Blood Urea Nitrogen 69 mg/dL (7-18); Bicarbonate 27 mEq/L (21-32); Bilirubin Total 0.3 mg/dL (0.2-1.0); Globulin 4.2 g/dL (2.3-3.5); Glomerular Filtration Rate 23 ml/min (=/>90); Glucose Level 170 mg/dL (74-106); Magnesium 2.4 mg/dL (1.6-2.4); Potassium 3.7 mEq/L (3.5-5.1); Protein, Total 6.7 g/dL (6.4-8.2); Sodium Level 139 mEq/L (136-145)
[2024-05-10 05:48] LABS: ALT/SGPT < 14 U/L (13-56)
[2024-05-10] MEDS: ARFORMOTEROL TARTRATE 15 MCG/2 ML VIAL.NEB NEB SCH (08:31)
--- NOTE | 2024-05-10 08:37 | P.PN ---
Subjective Date of Service: 05/10/24 Chief Complaint: Wheezing shortness of breath Subjective: Improving, Worsening (Has been having problems since last night she was doing well yesterday morning has been having wheezing shortness of breath history of obstructive airways disease use any bronchodilators at baseline) Review of Systems General: Weakness Respiratory: Shortness of Breath Physical Examination - Vital Signs Temperature: 97.5 F Blood Pressure: 124/67 Pulse: 90 Respirations: 15 Pulse Ox (%): 95 - Physical Exam General: Alert, Oriented x3, Mild distress Respiratory: Expiratory wheezes Cardiovascular: No edema, Regular rate/rhythm, Normal S1 S2 Assessment And Plan - Current Problems (Diagnosis) (1) Dyspnea Current Visit: Yes Status: Acute Plan: Patient has been complaining of dyspnea and wheezing since admission BP has been significantly elevated echocardiogram pending function is worse seen by nephrology avoid diuretics for now side effect of the vancomycin long-acting bronchodilators ENT consult as she is complaining about a problems with the throat count is also increased urination satisfactory chest CT scan shows bilateral pleural effusions BNP most likely diastolic heart failure echocardiogram pending (2) 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
--- NOTE | 2024-05-10 16:32 | P.PN ---
Subjective Date of Service: 05/10/24 Chief Complaint: Wheezing shortness of breath Subjective: Other (Bedbound.) Physical Examination - Vital Signs Temperature: 98.5 F Blood Pressure: 108/79 Pulse: 108 Respirations: 23 Pulse Ox (%): 100 - Physical Exam General: Other (chronically ill-appearing) HEENT: Atraumatic, Normocephalic Neck: Supple, JVD not distended Respiratory: Other (symmetric chest expansion) Cardiovascular: No rubs, No murmurs Gastrointestinal: Soft and benign, No rebound Musculoskeletal: No clubbing Integumentary: No warmth Neurological: Normal speech Urinary: Other (no bladder distention) External genitalia: Deferred Rectal: Deferred Assessment And Plan - Plan # CARLOS likely 2/2 prerenal state + ATN from relative hypotension + contrast-royal juan nephropathy SCr 1.3 on adm, increased to 2.1 today She received IV contrast on 05/08/2024; +contrast-induced nephropathy Urinalysis showed no proteinuria/hematuria/pyuria Urine chem non-prerenal Proteinuria mild, 0.7g on random UPCR Renal US showed symmetric small-sized kidneys, no hydronephrosis CPK wnl, no rhabdo [place] po fluid intake at least 2 L/day Keep MAP > 65 # CKD3 presumed to be 2/2 Htn nephrosclerosis Baseline SCr 1.1-1.4 (GFR 37-52 ml/min) as of 05/07/2024 Monitor renal panel # Acute stroke Per other services # Elevated BNP BNP much higher compared to December 2023 CXR +congestion +SOB on 05/08/[address] on 05/09 showed bilateral pleural effusions F/u TTE Strict low Na diet < 2 g/d # Relative hypotension F/u serum cortisol, ACTH, DHEAS Keep MAP > 65 # Iron-def anemia Tsat low at 5%. Give Ferrlecit 125 mg IV daily 4 doses, starting on 05/11/2024. 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
[2024-05-10] MEDS: DIPHENHYDRAMINE 25 MG TAB/CAP PO ONE (16:46)
[2024-05-11 05:10] LABS: Absolute Basophils 0.1 K/uL (0-0.5); Absolute Eosinophils 0.4 K/uL (0-0.5); Absolute Lymphocytes (CBC) 1.6 K/uL (0.7-4.9); Absolute Monocytes 0.8 K/uL (0.1-1.3); Absolute Neutrophil 6.7 K/uL (1.8-8.0); Basophils % 0.9 % (0-1.3); Eosinophils % 3.7 % (0-4.4); Hematocrit 26.3 % (36.0-45.0); Hemoglobin 8.8 g/dL (12.0-15.0); Lymphocytes % 16.8 % (15.3-44.8); MCH 29.4 pg (27.0-35.0); MCHC 33.5 g/dL (32.0-36.0); MCV 87.8 fL (80-100); MPV 7.7 fL (7.6-11.3); Monocytes % 8.5 % (3.3-12.3); Neutrophils % 70.1 % (41.7-73.7); Platelets 323 thou/uL (152-406); RBC Red Blood Cell Count 2.99 M/uL (3.86-4.86); Red Cell Distribution Width 14.6 % (12.1-15.2)
[2024-05-11 05:30] LABS: Albumin 2.1 g/dL (3.4-5.0); Albumin/Globulin Ratio 0.5 (1.1-1.8); Anion Gap 9.1 mEq/L (5.0-15.0); Bilirubin Total 0.3 mg/dL (0.2-1.0); Globulin 3.9 g/dL (2.3-3.5); Magnesium 2.3 mg/dL (1.6-2.4); Potassium 4.1 mEq/L (3.5-5.1)
--- NOTE | 2024-05-11 06:59 | ECHO ---
HEIGHT: 5 ft 6 in WEIGHT: 164 lb 0 oz DATE OF STUDY: 05/08/[address]: Herbie Lucero MD 2-DIMENSIONAL: YES M.MODE: YES DOPPLER: YES COLOR FLOW: YES TDS: PORTABLE: YES DEFINITY: BUBBLE STUDY: DIAGNOSIS: RULE OUT CONGESTIVE HEART FAILURE CARDIAC HISTORY: CATHERIZATION: SURGERY: PROSTHETIC VALVE: PACEMAKER: MEASUREMENTS (cm) DIASTOLIC (NORMALS) SYSTOLIC (NORMALS) IVSd 1.1 (0.6-1.2) LA Diam 3.1 (1.9-4.0) LVEF 40-45% LVIDd 5.1 (3.5-5.7) LVIDs 3.7 (2.0-3.5) %FS 27% LVPWd 1.2 (0.6-1.2) Ao Diam 2.6 (2.0-3.7) 2 DIMENSIONAL ASSESSMENT: RIGHT ATRIUM: NORMAL LEFT ATRIUM: NORMAL RIGHT VENTRICLE: NORMAL LEFT VENTRICLE: NORMAL TRICUSPID VALVE: TRACE TRICUSPID REGURGITATION MITRAL VALVE: MILD MITRAL REGURGITATION PULMONIC VALVE: NORMAL AORTIC VALVE: MODERATE AORTIC STENOSIS, TRACE AORTIC REGURGITATION PERICARDIAL EFFUSION: NONE AORTIC ROOT: NORMAL LEFT VENTRICULAR WALL MOTION: MODERATE HYPOKINESIS OF ANNEMARIE SEPTAL AND APICAL MARTIN DOPPLER/COLOR FLOW: NORMAL COMMENTS: 1. MILD REDUCED LEFT VENTRICULAR SYSTOLIC FUNCTION, EJECTION FRACTION 40-45%, MODERATE HYPOKINESIS OF ANNEMARIE SEPTAL, APICAL MARTIN 2. MODERATE AORTIC STENOSIS 3. NORMAL FILLING PRESSURE TECHNOLOGIST: VANI PERES
[2024-05-11] MEDS: VITAMIN D 1000 UNIT TAB PO SCH (09:00)
--- NOTE | 2024-05-11 09:20 | P.PN ---
Subjective Date of Service: 05/11/24 Patient is awake and alert and interactive. MRI of the brain ordered. Also get wound care on the foot. Working on discharge planning for IV antibiotic therapy at discharge. Review of Systems 10-point ROS is otherwise unremarkable Physical Examination - Vital Signs Temperature: 98.5 F Blood Pressure: 108/79 Pulse: 108 Respirations: 23 Pulse Ox (%): 100 - Physical Exam General: Alert, In no apparent distress, Oriented x3 HEENT: Atraumatic, PERRLA, EOMI Neck: Supple, JVD not distended Respiratory: Clear to auscultation bilaterally, Normal air movement Cardiovascular: Regular rate/rhythm, Normal S1 S2, No murmurs Gastrointestinal: Normal bowel sounds, Soft and benign, Non-distended, No tenderness Musculoskeletal: No clubbing, No swelling, No tenderness Neurological: Sensation intact, Cranial nerves 3-12 intact - Studies Microbiology Data (last 24 hrs): 05/05/24 18:46 Blood - Blood Aerobic Blood Culture - Final No growth in 5 days. 05/05/24 18:46 Blood - Blood Anaerobic Blood Culture - Final No growth in 5 days. 05/05/24 18:08 Blood - Blood Aerobic Blood Culture - Final No growth in 5 days. 05/05/24 18:08 Blood - Blood Anaerobic Blood Culture - Final No growth in 5 days. 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
--- NOTE | 2024-05-11 10:12 | RAD REPORT ---
EXAMINATION: MRI BRAIN WITHOUT CONTRAST CLINICAL INDICATION: stroke TECHNIQUE: Multiplanar multisequence MR images of the brain were obtained without intravenous contras t. Unless otherwise specified, incidental findings do not require dedicated imaging follow-up. COMPARISON: 05/08/2024 CT head FINDINGS: INTRACRANIAL: Diffusion-weighted images show no acute or early subacute infarction. There is mild bra in atrophy with mildT2/FLAIR hyperintensities in the periventricular and deep white matter regions, likely representing chronic microvascular ischemic changes. There is no mass effect or midline shift. No abnormal extraaxial fluid collection. VASCULATURE: Normal signal voids in the larger intracranial arteries and dural venous sinuses. SINUSES: The paranasal sinuses and mastoid air cells are predominantly clear. BONE: The marrow signal pattern is within normal limits. IMPRESSION: Negative for acutre CVA or other acute intracranial finding.
[2024-05-11] MEDS: SOD FERRIC GLUC COMPLX/SUCROSE 125 MG in NA CHLORIDE 0.9% 100 ML IV SCH (10:45)
[2024-05-11] MEDS: NITROGLYCERIN 1 GM PKT TD ONE (12:25)
[2024-05-11] MEDS: VANCOMYCIN 1.25 GM in NA CHLORIDE 0.9% 250 ML IVPB SCH (13:58)
--- NOTE | 2024-05-12 03:03 | PN ---
Date of Progress Note: 05/11/2024 Chief Complaint: Acute kidney injury secondary to acute tubular necrosis, prerenal state, hypotensio n. The patient also developed urinary retention and she has a Hale catheter. Review of Systems: Denies chest pain, palpitation. Physical Examination: Lungs: Clear to auscultation bilaterally. Heart: S1, S2. Abdomen: Soft. Extremities: No edema. Impression And Plan: 1.Acute kidney injury secondary to prerenal state and acute tubular necrosis secondary to hypotensio n superimposed with contrast-induced nephropathy. Serum creatinine increased from 1.3 on admission t o 2.1 and is plateauing, although renal function has not improved. The patient is on IV fluids. She developed IV contrast nephropathy. She was exposed to IV contrast on May 08, 2024. Urinalysis showed no proteinuria and no hematuria and no pyuria, which goes along with acute tubular necrosis an d contrast-induced nephropathy. Urine protein creatinine ratio demonstrated proteinuria of mild degr ee, 0.7 g on random UPCR. Renal ultrasound showed small size kidney corresponding with hypertensive kidney disease. There is no evidence of rhabdomyolysis. CPK level is within normal limits. The pat ient requested to remove the Hale catheter, although she again developed urinary retention and inter mittent catheterization will be done for urinary retention. The patient may need Urology consultatio n. 2.Chronic kidney disease, stage 3, due to hypertension and nephrosclerosis. Avoid nephrotoxic medic ation. The patient received IV fluids for contrast-induced nephropathy. 3.Elevated BNP. Chest x-ray shows some congestion. Continue p.o. hydration. Avoid IV fluids. Con tinue low-sodium diet and follow up on the transthoracic echo. Chest x-ray on May 09 showed bila teral pleural effusion. The patient may require diuretics. 4.Hypotension. The patient will have workup done and cortisol level, ACTH, PH, EAS. Continue to mo nitor blood pressure and start midodrine as needed. 5.Iron deficiency anemia. The patient is on IV Ferrlecit. Continue to monitor. 6.Vitamin D deficiency. The patient will continue vitamin D3 2000 units daily by mouth. 7.Hyperparathyroidism due to vitamin D depletion. Continue treatment with vitamin D3. 8.Diabetes mellitus per primary. 9.Peripheral arterial disease, posterior tibial artery occlusion. 10.History of percutaneous transluminal angioplasty and stenting. The patient is on anticoagulation therapy and management per primary team. ADRIANNE/LAVERN Voice ID: [id number] Report ID: [id number]
[2024-05-12 05:31] LABS: Absolute Basophils 0.1 K/uL (0-0.5); Absolute Eosinophils 0.5 K/uL (0-0.5); Absolute Lymphocytes (CBC) 1.7 K/uL (0.7-4.9); Absolute Monocytes 0.9 K/uL (0.1-1.3); Absolute Neutrophil 6.8 K/uL (1.8-8.0); Basophils % 0.8 % (0-1.3); Eosinophils % 4.6 % (0-4.4); Hemoglobin 9.1 g/dL (12.0-15.0); Lymphocytes % 17.3 % (15.3-44.8); MCH 29.6 pg (27.0-35.0); MCHC 33.8 g/dL (32.0-36.0); MCV 87.6 fL (80-100); MPV 7.8 fL (7.6-11.3); Neutrophils % 68.3 % (41.7-73.7); Platelets 344 thou/uL (152-406); RBC Red Blood Cell Count 3.08 M/uL (3.86-4.86); Red Cell Distribution Width 14.2 % (12.1-15.2)
[2024-05-12 06:04] LABS: Albumin 2.3 g/dL (3.4-5.0); Albumin/Globulin Ratio 0.6 (1.1-1.8); Bilirubin Total 0.3 mg/dL (0.2-1.0); Globulin 3.9 g/dL (2.3-3.5); Magnesium 2.3 mg/dL (1.6-2.4); Protein, Total 6.2 g/dL (6.4-8.2)
[2024-05-12 06:32] VITALS: BMI 27.2
[2024-05-12] MEDS: NITROGLYCERIN 1 GM PKT TD PRN (11:56)
--- NOTE | 2024-05-12 13:08 | PN ---
Subjective: The patient is lying in ICU, bed 1. The patient denies any headache, nausea, vomiting, chest pain, abdominal pain, constipation, or diarrhea. Continue to have discomfort in her left foot from neuropathy and possible peripheral vascular disease. Objective: Vital Signs: Reviewed. Lungs: Basal crackles. Heart: S1, S2. Regular. Abdomen: Soft, nontender. Bowel sounds present. Extremities: Trace edema. Laboratory Data: Shows WBC 9.9, hemoglobin 9.1, platelets are 344. Chemistry shows BUN of 73, creat inine 0.18, down from 2.09. Medications: Include cefepime and vancomycin. Assessment And Plan: Patient was transferred to ICU for possible stroke, which was negative on MRI. Osteomyelitis of the left foot involving the third toe, onychomycosis. Currently, on IV antibiotic. Monitor signs of infection and WBC and fever trends. No other recommendation. NF/MODL Voice ID: [id number] Report ID: [id number]
--- NOTE | 2024-05-12 16:35 | PN ---
Date of Progress Note: 05/12/2024 Subjective: The patient was admitted to the hospital. Had acute kidney injury secondary to contrast induced and poor perfusion ATN. Has obstructive uropathy, status post Hale. The patient's kidney function started being improving. Objective: Vital Signs: When I saw the patient, blood pressure of 113/73, pulse of 101. Afebrile. Chest: Clear to auscultation. Heart: S1, S2. Regular. Abdomen: Soft and nontender. Extremities: No edema. Neurologic: Alert. No focality. Laboratory Data: WBC 9.9, hemoglobin 9.1, sodium 138, potassium 4, bicarb 28, BUN 73, creatinine 1.8, calcium 8.8. Current Medications: The patient on, it includes diphenhydramine, IV iron, Xarelto, Brilinta, atorvastatin, Lasix. Assessment And Plan: 1. Acute kidney injury secondary to contrast-induced nephropathy. Obstructive uropathy, started recovering. Normal volume. I am going to continue to monitor the patient. 2. Hypertension, controlled, optimal. Please keep holding TRICIA inhibitor or ARB. 3. Congestive heart failure. Currently, patient normal volume, on room air. We will continue to monitor the patient. 4-hyponatremia secondary to dilutional will be corrected with the diuresis Time spent examining the patient [id number], reviewing data, lab, and radiology, placing order, discussing the case with the patient, discussing the case with the child study team director including hospitalist and nursing staff more than 55 minutes. RODRIGUEZ Voice ID: [id number] Report ID: [id number] MARGARET
[2024-05-13] MEDS ORDERED: FAMOTIDINE 20 MG TAB PO SCH (00:24)
[2024-05-13] MEDS: FAMOTIDINE 20 MG TAB ONE (00:32)
[2024-05-13] MEDS: FAMOTIDINE 20 MG TAB PO SCH (00:39)
[2024-05-13 04:46] LABS: Absolute Basophils 0.1 K/uL (0-0.5); Absolute Eosinophils 0.4 K/uL (0-0.5); Absolute Lymphocytes (CBC) 1.8 K/uL (0.7-4.9); Absolute Neutrophil 7.9 K/uL (1.8-8.0); Basophils % 0.8 % (0-1.3); Eosinophils % 3.2 % (0-4.4); Hematocrit 27.4 % (36.0-45.0); Hemoglobin 8.9 g/dL (12.0-15.0); Lymphocytes % 15.9 % (15.3-44.8); MCH 28.7 pg (27.0-35.0); MCHC 32.5 g/dL (32.0-36.0); MCV 88.2 fL (80-100); MPV 7.9 fL (7.6-11.3); Monocytes % 9.3 % (3.3-12.3); Neutrophils % 70.8 % (41.7-73.7); Platelets 347 thou/uL (152-406); RBC Red Blood Cell Count 3.11 M/uL (3.86-4.86); Red Cell Distribution Width 14.4 % (12.1-15.2)
[2024-05-13 04:59] LABS: Albumin 2.5 g/dL (3.4-5.0); Albumin/Globulin Ratio 0.6 (1.1-1.8); Anion Gap 10.5 mEq/L (5.0-15.0); Bilirubin Total 0.3 mg/dL (0.2-1.0); Globulin 4.2 g/dL (2.3-3.5); Magnesium 2.2 mg/dL (1.6-2.4); Potassium 4.5 mEq/L (3.5-5.1); Protein, Total 6.7 g/dL (6.4-8.2)
--- NOTE | 2024-05-13 11:12 | PN ---
Date of Progress Note: 05/13/2024 Subjective: The patient was admitted to the hospital with acute kidney injury secondary to contrast-induced nephropathy, poor perfusion, ATN with obstructive uropathy. Patient on the recovery had good urine output. Physical Examination: Vital signs: Blood pressure 135/70, pulse of 100, afebrile. The patient had good urine output of voiding. Chest: Clear to auscultation. Heart: S1, S2. Regular. Abdomen: Soft, nontender. Extremities: No edema. Neuro: Patient alert. No focality. Laboratory Data: WBC 11.1, hemoglobin 8.9. Sodium 140, potassium 4.5, bicarb 26, BUN 67, creatinine 1.9, GFR 25, calcium 9.2, magnesium 2.2. Current Medications: The patient on include vancomycin, nystatin, cefepime, IV iron, Brilinta, atorvastatin, nitroglycerin, Lyrica, Lasix. Assessment And Plan: 1. Acute kidney injury secondary to obstructive uropathy, poor perfusion, acute tubular necrosis, contrast-induced nephropathy, on the recovery phase, normal volume. I am going to continue to monitor the patient and we will follow up. 2. Hypertension, controlled, optimal. Continue current medication. 3. Congestive heart failure with exacerbation, currently normal volume. We will continue current dose of Lasix. I am going to switch it to oral and we will follow up. 4. Hypotension, resolved. 5. Diabetes, as by primary. Time spent examining the patient [id number] reviewing data lab and radiology placing order discussing the case with the patient , discussing the case with the steam gigger including hospitalist and nursing staff more than 55 minutes RODRIGUEZ Voice ID: [id number] Report ID: [id number] MARGARET
[2024-05-13 11:16] LABS: ACTH Baseline <5 pg/mL (6-50)
[2024-05-13 12:17] LABS: DHEA Sulfate 52 mcg/dL (7-177)
[2024-05-13] MEDS: VANCOMYCIN 1 GM in NA CHLORIDE 0.9% 250 ML IVPB SCH (12:19)
--- NOTE | 2024-05-13 15:43 | P.CNS ---
Date of Consult: 05/13/24 Chief Complaint: Wheezing shortness of breath History of Present Illness: Patient with PMH of HTN, PAD presented with right toes cellulitis/OM, cardiology was consulted for elevated BNP, patient denies chest pain, no palpitations, no syncope, no SOB. Allergies No Known Allergies Allergy (Verified 06/27/20 10:50) Home medications list reviewed: Yes Home Medications: Insulin NPH Human Isophane [Novolin N] 20 unit SQ DAILY 05/05/24 Insulin Regular, Human [Novolin R] See Protocol SQ ACHS 05/05/24 Pregabalin [Lyrica] 50 mg PO BEDTIME 05/05/24 Rivaroxaban [Xarelto] 10 mg PO DAILY 05/05/24 Ticagrelor [Brilinta] 90 mg PO BID 05/05/24 lisinopriL [Lisinopril] 20 mg PO DAILY 05/05/24 Pentoxifylline 400 mg PO BID 05/09/24 - Past Medical/Surgical History -: DM -: HTN - Social History Alcohol use: No CD- Drugs: No Caffeine use: Yes Place of Residence: Home Review of Systems 10-point ROS is otherwise unremarkable Physical Examination Temp Pulse Resp BP Pulse Ox 98.0 F 92 H 14 128/62 95 05/13/24 12:00 05/13/24 12:00 05/13/24 12:00 05/13/24 12:00 05/13/24 12:00 General: Alert, In no apparent distress HEENT: Atraumatic, PERRLA, Mucous membr. moist/pink, EOMI, Sclerae nonicteric Neck: Supple, 2+ carotid pulse no bruit, No LAD, Without JVD or thyroid abnormality Respiratory: Clear to auscultation bilaterally, Normal air movement Cardiovascular: Regular rate/rhythm, Normal S1 S2 Gastrointestinal: Normal bowel sounds, No tenderness Musculoskeletal: No tenderness Integumentary: No rashes Neurological: Normal gait, Normal speech, Normal tone, Normal affect Lymphatics: No axilla or inguinal lymphadenopathy - Problems (1) Elevated brain natriuretic peptide (BNP) level Current Visit: Yes Status: Acute Plan: Patient looks euvolemic on exam, elevated BNP is most likely secondary to CARLOS, continue current medications. (2) Peripheral vascular disease Current Visit: Yes Status: Acute Plan: patient mention complex left leg disease and damaged stent in left leg with failed attempt for bypass. continue Brilinta and Xarelto
--- NOTE | 2024-05-14 07:27 | P.PN ---
Date of Service: 05/12/24 subjective Afebrile overnight, moderate pain left lower extremity Review of Systems 10-point ROS is otherwise unremarkable as per HPI Physical Examination vital signs Reviewed - Physical Exam General: Alert, Oriented x3 HEENT: Atraumatic, Normocephalic Respiratory: Clear to auscultation bilaterally, Normal air movement Cardiovascular: Regular rate/rhythm, Normal S1 S2, Other Gastrointestinal: Normal bowel sounds, Soft and benign Integumentary: other (left foot swollen red, and edematous) Neurological: Alert oriented x 3, no focal deficits Assessment and Plan - Problems (Diagnosis) Osteomyelitis to left third toe SIRS secondary to left foot cellulitis Acute cellulitis left foot diabetic left foot wound 84-year-old female with history of insulin-dependent diabetes, peripheral vascular disease, neuropathy, hypertension presented from surgery office with complaints of worsening wound infection. Surgery eval Dr. Herndon Wound care IVF, IV vancomycin and Zosyn, followup cultures Infectious disease consult MRI of the left foot Mild to moderate osteomyelitis is present involving the third toe. Doppler left lower extremity Occluded segment involving most of the posterior tibial artery scanned portions. Mostly monophasic waveforms distally with patent dorsalis pedis artery, with advanced burden of atherosclerotic changes. Patent left popliteal artery stent. Peripheral vascular/ arterial disease Peripheral neuropathy Intractable left foot pain Occluded posterior r tibial artery Left lower EXTR advanced burden of atherosclerotic On Xarelto, Brilinta patient mention complex left leg disease and damaged stent in left leg with failed attempt for bypass. Resume appropriate home meds Lyrica Elevated BNP Cardiology consult Chronic anticoagulation Anticoagulation at this time Xarelto, Brilinta TIA MRI of the brain, negative for acute stroke, Speech eval, recommend thin liquids, elevate to 90 degrees with liquid Hypotension, CKD stage III Nephrology consulted Avoid nephrotoxic medication Iron deficiency anemia Managed by nephrology-Give Ferrlecit 125 mg IV daily 4 doses, starting on 05/11/2024. Monitor CBC insulin-dependent diabetes mellitus Accu-Cheks, sliding scale Resume home long-acting insulin essential hypertension-uncontrolled Resume appropriate home meds Full code Diet diabetic SCDs continue chronic anticoagulation Disposition Home likely with IV antibiotic - Advance Directives Does patient have a Living Will: No Does patient have a Durable POA for Healthcare: No Time spent with patient, 35
--- NOTE | 2024-05-14 07:28 | P.PN ---
Date of Service: 05/13/24 subjective bedbound,, no acute issues Review of Systems 10-point ROS is otherwise unremarkable Physical Examination vital signs Reviewed - Physical Exam General: Alert, Oriented x3 HEENT: Atraumatic, Normocephalic Respiratory: Clear to auscultation bilaterally, Normal air movement Cardiovascular: Regular rate/rhythm, Normal S1 S2, Other Gastrointestinal: Normal bowel sounds, Soft and benign Integumentary: other (left foot swollen red, and edematous) Neurological: Alert oriented x 3, no focal deficits Assessment and Plan - Problems (Diagnosis) Osteomyelitis to left third toe SIRS secondary to left foot cellulitis Acute cellulitis left foot diabetic left foot wound 84-year-old female with history of insulin-dependent diabetes, peripheral vascular disease, neuropathy, hypertension presented from surgery office with complaints of worsening wound infection. Surgery eval Dr. Herndon Wound care IVF, IV vancomycin and Zosyn, Blood cultures no growth Infectious disease following MRI of the left foot Mild to moderate osteomyelitis is present involving the third toe. Doppler left lower extremity Occluded segment involving most of the posterior tibial artery scanned portions. Mostly monophasic waveforms distally with patent dorsalis pedis artery, with advanced burden of atherosclerotic changes. Patent left popliteal artery stent. Peripheral vascular/ arterial disease Peripheral neuropathy Intractable left foot pain Occluded posterior r tibial artery Left lower EXTR advanced burden of atherosclerotic cardiology consuted On [place] patient mention complex left leg disease and damaged stent in left leg with failed attempt for bypass. Resume appropriate home meds Lyrica Elevated BNP Cardiology consult Chronic anticoagulation Anticoagulation at this time XaShauna quispeta TIA MRI of the brain, negative for acute stroke, Speech eval, recommend thin liquids, elevate to 90 degrees with liquid CKD stage III Nephrology consulted Avoid nephrotoxic medication Iron deficiency anemia Managed by nephrology-Give Ferrlecit 125 mg IV daily 4 doses, starting on 05/11/2024. Monitor CBC insulin-dependent diabetes mellitus Accu-Cheks, sliding scale Resume home long-acting insulin essential hypertension-uncontrolled Resume appropriate home meds Lisinopril, will add metoprolol 25 daily Full code Diet diabetic SCDs continue chronic anticoagulation Disposition Home likely with IV antibiotic - Advance Directives Does patient have a Living Will: No Does patient have a Durable POA for Healthcare: No Time spent with patient, 35
[2024-05-14] MEDS: INSULIN REGULAR (HUMAN) 100 UNIT/ML SQ SCH (08:39)
[2024-05-14] MEDS: FUROSEMIDE 20 MG TABLET PO SCH (08:40)
--- NOTE | 2024-05-14 09:19 | P.PN ---
Date of Service: 05/14/24 subjective Hypoglycemia overnight, insulin held Family request home health with IV antibiotics arranged Review of Systems 10-point ROS is otherwise unremarkable Physical Examination vital signs Reviewed - Physical Exam General: Alert, Oriented x3, afebrile HEENT: Atraumatic, Normocephalic Respiratory:diminished, unlabored Cardiovascular: Regular rate/rhythm, Normal S1 S2, Other Gastrointestinal: Normal bowel sounds, Soft and benign Integumentary: other (left foot swollen red, and edematous) Neurological: Alert oriented x 3, no focal deficits Assessment and Plan - Problems (Diagnosis) Acute hypoxic respiratory failure secondary to pneumonia improving Right lower lobe pneumonia Increased lung markings in the medial right lung base suggests mild infiltrate/pneumonia. IV antibiotics, nebs Osteomyelitis to left third toe improving SIRS secondary to left foot cellulitis Acute cellulitis left foot diabetic left foot wound 84-year-old female with history of insulin-dependent diabetes, peripheral vascular disease, neuropathy, hypertension presented from surgery office with complaints of worsening wound infection. Surgery eval Dr. Herndon Wound care IVF, IV vancomycin and Zosyn, Blood cultures no growth Infectious disease following MRI of the left foot Mild to moderate osteomyelitis is present involving the third toe. Doppler left lower extremity Occluded segment involving most of the posterior tibial artery scanned portions. Mostly monophasic waveforms distally with patent dorsalis pedis artery, with advanced burden of atherosclerotic changes. Patent left popliteal artery stent. Peripheral vascular/ arterial disease Peripheral neuropathy Intractable left foot pain Occluded posterior r tibial artery Left lower EXTR advanced burden of atherosclerotic cardiology consuted On XareltoShaunata patient mention complex left leg disease and damaged stent in left leg with eva led attempt for bypass. Resume appropriate home meds Lyrica essential hypertension-uncontrolled Elevated BNP Sinus tachycardia Cardiology following Resume appropriate home meds Lisinopril, will add metoprolol 25 daily Chronic anticoagulation Anticoagulation at this time Xarelto, Brilinta TIA MRI of the brain, negative for acute stroke, Speech eval, recommend thin liquids, elevate to 90 degrees with liquid CKD stage III Nephrology consulted Avoid nephrotoxic medication Iron deficiency anemia Managed by nephrology-Give Ferrlecit 125 mg IV daily 4 doses, starting on 05/11/2024. Monitor CBC insulin-dependent diabetes mellitus Accu-Cheks, sliding scale Resume home long-acting insulin Full code Diet diabetic SCDs continue chronic anticoagulation Disposition Home likely with IV antibiotic - Advance Directives Does patient have a Living Will: No Does patient have a Durable POA for Healthcare: No Time spent with patient, 35
[2024-05-14 09:29] VITALS: O2SAT 94
[2024-05-14 10:17] LABS: Absolute Basophils 0.1 K/uL (0-0.5); Absolute Eosinophils 0.4 K/uL (0-0.5); Absolute Lymphocytes (CBC) 1.2 K/uL (0.7-4.9); Absolute Monocytes 0.7 K/uL (0.1-1.3); Absolute Neutrophil 7.7 K/uL (1.8-8.0); Basophils % 1.2 % (0-1.3); Eosinophils % 3.5 % (0-4.4); Hematocrit 26.9 % (36.0-45.0); Hemoglobin 8.7 g/dL (12.0-15.0); Lymphocytes % 12.3 % (15.3-44.8); MCH 28.8 pg (27.0-35.0); MCHC 32.3 g/dL (32.0-36.0); MCV 89.1 fL (80-100); Monocytes % 7.2 % (3.3-12.3); Neutrophils % 75.8 % (41.7-73.7); Platelets 337 thou/uL (152-406); RBC Red Blood Cell Count 3.02 M/uL (3.86-4.86); Red Cell Distribution Width 14.4 % (12.1-15.2)
[2024-05-14 10:40] LABS: Albumin 2.5 g/dL (3.4-5.0); Anion Gap 10.4 mEq/L (5.0-15.0); Magnesium 2.1 mg/dL (1.6-2.4); Potassium 4.4 mEq/L (3.5-5.1)
--- NOTE | 2024-05-14 10:50 | PN ---
Date of Progress Note: 05/14/2024 Subjective: The patient was admitted to the hospital with acute kidney injury, osteomyelitis. The p atient was treated. Her acute kidney injury has been improved. Patient still complaining from pain on the foot. Objective: Vital Signs: When I saw the patient, blood pressure 160/73, yesterday it was around ____ , pulse of 107, afebrile. Chest: Clear to auscultation. Heart: S1, S2. Regular. Abdomen: Soft, nontender. Extremities: No edema. Dressing on the left foot. Laboratory Data: Still pending. WBC 11.1, hemoglobin 8.9 yesterday. Chemistry: Sodium 140, potass ium 4.5, bicarb 26, BUN 67, creatinine 1.9, GFR 25, calcium 9.2. Current Medications: The patient on, it includes cefepime, vancomycin, Xarelto, atorvastatin, metopr olol, nitroglycerin, Lasix 40 daily, insulin. Assessment And Plan: 1.Acute kidney injury, multifactorial secondary to contrast induced nephropathy, obstructive uropath y, and toxic acute tubular necrosis, on the recovery, plateaued, normal volume. I am going to contin ue current diuresis dose. 2.Hypertension, controlled, optimal. 3.Coronary artery disease, congestive heart failure, currently normal volume. Continue current diur esis. 4.Diabetes, as by Primary. 5.Chronic kidney disease, normal sized kidney 8.6 and 8.5, proteinuric, secondary to mushtaq l vascular disease, hypertension, nephrosclerosis, cardiorenal with acute kidney injury, as above. 6.Osteomyelitis, continue current antibiotic. TIRSO/LAVERN Voice ID: [id number] Report ID: [id number]
--- NOTE | 2024-05-14 12:14 | EKG ---
Test Date: 2024-05-08 Test Time: 20:18:50 Hydrogenation Operator: HANA MEASUREMENT RESULTS: Intervals: Rate: 102 OH: 170 QRSD: 98 QT: 344 QTc: 448 [place]: P: 84 OH: 170 QRS: 62 T: 88 INTERPRETIVE STATEMENTS: Sinus tachycardia Otherwise normal ECG Compared to ECG 05/05/2024 18:32:31 No significant changes Electronically Signed On 05-14-24 12:00:38 CDT by Gumaro Mcdowell
[2024-05-14] MEDS: METOPROLOL XL 25 MG TAB PO SCH (13:04)
--- NOTE | 2024-05-14 13:13 | RAD REPORT ---
EXAMINATION: ONE VIEW CHEST XR CLINICAL INDICATION: sob TECHNIQUE: Frontal chest projection is submitted. Examination is limited by patient positioning and t echnique. COMPARISON: 05/10/2024 FINDINGS: Mild increase opacity in the medial right lung base may represent infiltrate/pneumonia. The heart is normal in size. Prominent degenerative change both shoulders. Right PICC line has tip in the SVC, unchanged. IMPRESSION: Increased lung markings in the medial right lung base suggests mild infiltrate/pneumonia.
--- NOTE | 2024-05-14 14:11 | P.DS ---
Admission Date: 05/05/24 Discharge Date: 05/15/24 Disposition: CT HOME/HOME HEALTH CARE Discharge Condition: GOOD Reason for Admission: Wheezing shortness of breath Brief History of Present Illness: 84-year-old female with history of insulin-dependent diabetes, peripheral vascular disease, neuropathy, hypertension presented from surgery office with complaints of worsening wound infection. The patient does have a history of stubbing her toe Has been to 2 different wound centers. Without much improvement. She does report increased welling and redness. She denies any fevers but states that she had chills initially in the emergency room. She was also noted to be tachycardic - Physical Exam General: Alert, Oriented x3 HEENT: Atraumatic, Normocephalic Respiratory: Clear to auscultation bilaterally, Cardiovascular: Regular rate/rhythm, Normal S1 S2, Other Gastrointestinal: Normal bowel sounds, Soft and benign Integumentary: other (left foot swollen red, and edematous) Neurological: Alert oriented x 3, no focal deficits Hospital Course: 84-year-old female with history of insulin-dependent diabetes, peripheral vascular disease, neuropathy, hypertension presented from surgery office with complaints of worsening wound infection. The patient does have a history of stubbing her toe Has been to 2 different wound centers. Without much improvement. She does report increased welling and redness. She was noted to pneumonia, osteomyelitis, intractable foot pain, peripheral artery disease. She was evaluated by surgery, cardiology, treated with IV antibiotics. Anticoagulation, she is tolerating diet, stable to discharge to nursing home facility to continue IV antibiotics. Will need to follow-up with primary care, cardiology, nephrology after discharge, Discharge home with [facility]) M:[phone] [place] P:[phone] F:[phone] Discharge medications Vancomycin 1.25 g IV every 36 hours orders sent [facility], Cefepime 1 g IV every "12 hours Flush, change dressing per protocol Metoprolol 25 bid, potassium 10 meq daily lasix 20 mg po daily pepcid 20 mg at bedtime hydrocodone 5 mg i q8hrs for pain nitro transdermal daily nystatin oint bid Assessment right lower lobe pneumonia, started on IV antibiotics, is on cefepime, vancomycin for osteomyelitis osteomyelitis of the left third toe, SIRS sepsis infection, treated with IV fluids, IV antibiotics. History of peripheral vascular disease, started on Brilinta, Xarelto peripheral neuropathy intractable foot pain, , Lyrica for pain, elevated BNP, sinus tachycardia cardiology was consulted, treated with gentle diuretics, metoprolol TIA, was evaluated by speech, recommended thin liquids, elevate head 90 degrees with p.o. intake CKD stage III, will need to follow-up with PCP, possibly nephrology after Iron deficiency anemia, with Iron deficiency anemia treated with iron infusions daily while inpatient Insulin-dependent diabetes mellitus Accu-Cheks, resume home insulin after discharge Sinus tachycardia, started on metoprolol INSTRUCTIONS: Physician Discharge Instructions: -Follow-up with cardiology after discharge -Follow-up with nephrology after discharge -Follow-up with surgery after discharge -Follow-up with PCP in 1 to 2 weeks -Please call Dr. Bowers at [phone] if any questions regarding hospital stay -Please call nursing station at [phone] if any nursing or medication que stions -Return to the emergency room if symptoms worsen Diet: ADA, low sodium Activity: Fall precautions Vital Signs/Physical Exam: Temp Pulse Resp BP Pulse Ox 97 F 103 H 17 136/72 100 05/14/24 12:00 05/14/24 13:04 05/14/24 12:00 05/14/24 13:04 05/14/24 12:00 Laboratory Data at Discharge: WBC 10.10 thou/uL (4.3-10.9) 05/14/24 09:57 Hgb 8.7 g/dL (12.0-15.0) L 05/14/24 09:57 Hct 26.9 % (36.0-45.0) L 05/14/24 09:57 Plt Count 337 thou/uL (152-406) 05/14/24 09:57 PT 16.4 SECONDS (9.4-12.5) H 05/08/24 19:13 INR 1.48 05/08/24 19:13 APTT 35.1 SECONDS (24.3-36.9) 05/08/24 19:13 Sodium 138 mEq/L (136-145) 05/14/24 09:57 Potassium 4.4 mEq/L (3.5-5.1) 05/14/24 09:57 BUN 56 mg/dL (7-18) H 05/14/24 09:57 Creatinine 1.88 mg/dL (0.55-1.02) H 05/14/24 09:57 Glucose 324 mg/dL (74-106) H 05/14/24 09:57 Phosphorus 3.0 mg/dL (2.5-4.9) 05/14/24 09:57 Magnesium 2.1 mg/dL (1.6-2.4) 05/14/24 09:57 Total Bilirubin 0.3 mg/dL (0.2-1.0) 05/13/24 04:27 AST 28 U/L (15-37) 05/13/24 04:27 ALT 19 U/L (13-56) 05/13/24 04:27 Alkaline Phosphatase 76 U/L (45-117) 05/13/24 04:27 Home Medications: Insulin NPH Human Isophane [Novolin N] 20 unit SQ DAILY 05/05/24 Insulin Regular, Human [Novolin R] See Protocol SQ ACHS 05/05/24 Pregabalin [Lyrica*] 50 mg PO BEDTIME 05/05/24 Rivaroxaban [Xarelto*] 10 mg PO DAILY 05/05/24 Ticagrelor [Brilinta*] 90 mg PO BID 05/05/24 lisinopriL [Lisinopril] 20 mg PO DAILY 05/05/24 Pentoxifylline 400 mg PO BID 05/09/24 Famotidine [Pepcid*] 20 mg PO BEDTIME #30 tab 05/14/24 Furosemide [Lasix*] 20 mg PO BIDAC #60 tab 05/14/24 Hydrocodone 5/APAP 325 [[place] 5/325*] 1 tab PO Q8HP PRN #30 tab 05/14/24 Metoprolol Succinate [Toprol Xl*] 25 mg PO BID 6AM 6PM #60 tab 05/14/24 Nystatin Oint [Mycostatin 100 Mu/Gm Oint*] 1 appl TOP BID #1 tube 05/14/24 Potassium Chloride 10 meq PO DAILY #30 tab 05/14/24 Nitroglycerin Oint [Nitrol Oint] 30 gm TD PRN #1 tube 05/15/24 New Medications: Furosemide [Lasix*] 20 mg PO BIDAC #60 tab Nystatin Oint [Mycostatin 100 Mu/Gm Oint*] 1 appl TOP BID #1 tube Nitroglycerin Oint [Nitrol Oint] 30 gm TD PRN #1 tube Hydrocodone 5/APAP 325 [[place] 5/325*] 1 tab PO Q8HP PRN #30 tab PRN Reason: Pain Scale 5-7 (Moderate) Famotidine [Pepcid*] 20 mg PO BEDTIME #30 tab Potassium Chloride 10 meq PO DAILY #30 tab Metoprolol Succinate [Toprol Xl*] 25 mg PO BID 6AM 6PM #60 tab Physician Discharge Instructions: PROBLEM: wound infection GOAL: Clear understanding of disease process INSTRUCTIONS: Diet: heart healthy Activity: [facility] [place] P:[phone] IV INFUSION ARRANGED WITH: [id number] [address], [place] [address] P/ Jacklyn: [phone] WHEELCHAIR ORDERED FROM: [facility] [address], [place] [address] 84-year-old female with history of insulin-dependent diabetes, peripheral vascular disease, neuropathy, hypertension presented from surgery office with complaints of worsening wound infection. The patient does have a history of stubbing her toe Has been to 2 different wound centers. Without much improvement. She does report increased welling and redness. She was noted to pneumonia, osteomyelitis, intractable foot pain, peripheral artery disease. She was evaluated by surgery, cardiology, treated with IV antibiotics. Anticoagulation, she is tolerating diet, stable to discharge to nursing home facility to continue IV antibiotics. Will need to follow-up with primary care, cardiology, nephrology after discharge from nursing home facility vs [facility] Discharge medications Vancomycin 1.25 g IV every 36 hours Cefepime 1 g IV every "12 hours Flush, change dressing per protocol Lasix 20 mg p.o. twice daily Nystatin ointment twice daily Nitroglycerin transdermal daily Hydrocodone 5 mg 1 P.o. every 8 hours Pepcid 20 mg at bedtime Potassium 10 meq daily Metoprolol 25 1 p.o. twice daily Please check labs-BMP, Vanc trough once weekly Assessment right lower lobe pneumonia, started on IV antibiotics, is on cefepime, vancomycin for osteomyelitis osteomyelitis of the left third toe, SIRS sepsis infection, treated with IV fluids, IV antibiotics. History of peripheral vascular disease, started on Brilinta, Xarelto peripheral neuropathy intractable foot pain, , Lyrica for pain, elevated BNP, sinus tachycardia cardiology was consulted, treated with gentle diuretics, metoprolol TIA, was evaluated by speech, recommended thin liquids, elevate head 90 degrees with p.o. intake CKD stage III, will need to follow-up with PCP, possibly nephrology after Iron deficiency anemia, with Iron deficiency anemia treated with iron infusions daily while inpatient Insulin-dependent diabetes mellitus Accu-Cheks, resume home insulin after discharge Sinus tachycardia, started on metoprolol INSTRUCTIONS: Physician Discharge Instructions: -Follow-up with cardiology after discharge -Follow-up with nephrology after discharge -Follow-up with surgery after discharge -Follow-up with PCP in 1 to 2 weeks -Please call Dr. Bowers at [phone] if any questions regarding hospital stay -Please call nursing station at [phone] if any nursing or medication questions -Return to the emergency room if symptoms worsen Diet: ADA, low sodium Followup: Vaughn Wood MD [Primary Care Provider] - Kenneth Dsouza MD [ACTIVE - CAN ADMIT] - Asif Herndon MD [ACTIVE - CAN ADMIT] - Gumaro Mcdowell MD [ACTIVE - CAN ADMIT] - Time spent managing pt's care (in minutes): 55
[2024-05-14] MEDS ORDERED: LEVALBUTEROL 1.25 MG/3 ML NEB NEB SCH (14:30)
--- NOTE | 2024-05-14 16:44 | PN ---
Date of Progress Note: 05/13/2024 Subjective: The patient is lying in bed. No new acute event. Chart reviewed. Objective: Vital Signs: Reviewed. Lungs: Basal crackles. Heart: S1, S2. Regular. Abdomen: Soft, nontender. Bowel sounds present. Extremities: No edema. Laboratory Data: Shows WBC 11,000, hemoglobin 8.9, platelets 347. Chemistry shows BUN of 56, creati nine 1.8. Current Antibiotics: Include cefepime and vancomycin. Assessment And Plan: Osteomyelitis of third toe and cellulitis of left foot, diabetic foot ulcer and diabetic foot wound. Continue current antibiotic and treatment for total of 6 weeks or 42 days. We will follow the patient as needed. NF/MODL Voice ID: [id number] Report ID: [id number]
--- NOTE | 2024-05-14 17:00 | PN ---
Subjective: The patient lying in bed. No new acute event. Chart reviewed. Denies any headache, na usea, vomiting, chest pain, abdominal pain, constipation, or diarrhea. Complains of left foot pain, which gets better with the nitro paste on her foot. Objective: Vital Signs: Temperature 97, pulse 100, respirations 17, blood pressure 136/72. Lungs: Basal crackles. Heart: S1, S2. Regular. Abdomen: Soft, nontender. Bowel sounds present. Extremity: Trace edema. Laboratory Data: WBC 10, hemoglobin 8.7, platelets are 337. Chemistry shows BUN 56, creatinine 1.88 . Assessment And Plan: Osteomyelitis of third toe with cellulitis of left foot. Leukocytosis, improvi ng. Anemia of chronic disease. Diabetes mellitus. Renal insufficiency. Continue antibiotic for to cornelius of 42 days. We will follow and repeat scan, if necessary. We will follow the patient as needed. NF/MODL Voice ID: [id number] Report ID: [id number]
[2024-05-14] MEDS: METOPROLOL XL 25 MG TAB PO ONE (21:20)
[2024-05-15] MEDS: METOPROLOL XL 25 MG TAB PO SCH (05:49)
[2024-05-15 06:24] LABS: Absolute Basophils 0.1 K/uL (0-0.5); Absolute Eosinophils 0.3 K/uL (0-0.5); Absolute Lymphocytes (CBC) 1.8 K/uL (0.7-4.9); Absolute Neutrophil 6.7 K/uL (1.8-8.0); Basophils % 0.8 % (0-1.3); Eosinophils % 3.4 % (0-4.4); Hematocrit 24.7 % (36.0-45.0); Hemoglobin 8.2 g/dL (12.0-15.0); Lymphocytes % 17.9 % (15.3-44.8); MCH 29.3 pg (27.0-35.0); MCHC 33.2 g/dL (32.0-36.0); MCV 88.2 fL (80-100); MPV 7.6 fL (7.6-11.3); Monocytes % 10.5 % (3.3-12.3); Neutrophils % 67.4 % (41.7-73.7); Nucleated Red Blood Cells % 0.1 % (0-0); Platelets 321 thou/uL (152-406); Red Cell Distribution Width 14.2 % (12.1-15.2)
[2024-05-15 07:09] LABS: Albumin 2.4 g/dL (3.4-5.0); Anion Gap 7.4 mEq/L (5.0-15.0); Magnesium 2.2 mg/dL (1.6-2.4); Phosphorus 3.2 mg/dL (2.5-4.9); Potassium 4.4 mEq/L (3.5-5.1)
[2024-05-15] MEDS ORDERED: METOPROLOL XL 25 MG TAB PO SCH (09:14)
[2024-05-15 14:20] VITALS: BP 113/54; TEMP 98.4
--- NOTE | 2024-05-19 13:11 | EKG ---
Test Date: 2024-05-14 Test Time: 11:02:47 Secondary Art Teacher: ANGELICA MEASUREMENT RESULTS: Intervals: Rate: 103 NM: 170 QRSD: 102 QT: 376 QTc: 492 [place]: P: 72 NM: 170 QRS: 72 T: 88 INTERPRETIVE STATEMENTS: Sinus tachycardia Cannot rule out Anterior infarct, age undetermined Abnormal ECG Compared to ECG 05/08/2024 20:18:50 Myocardial infarct finding now present Electronically Signed On 05-19-24 12:56:36 CDT by Gumaro Mcdowell
== END 2024-05-15 14:25 | disposition home health service (06) | DRG 871 ==
LOC: ER 16:39 → 2ND 19:22 → 3RD-ICU 05-08 19:46 → 2ND 05-12 12:41
PROVIDERS: ADMIT Nurse Practitioner; ATTEND Hospitalist
PROC: 4A033R1 Measurement of Arterial Saturation, Peripheral, Percutaneous Approach (ICD-10-PCS; principal; 2024-05-08)
PROC: 02HV33Z Insertion of Infusion Device into Superior Vena Cava, Percutaneous Approach (ICD-10-PCS; 2024-05-10)
PROC: 0T9B70Z Drainage of Bladder with Drainage Device, Via Natural or Artificial Opening (ICD-10-PCS; 2024-05-10)
DX: A41.9 Sepsis, unspecified organism (principal); J18.9 Pneumonia, unspecified organism; N17.0 Acute kidney failure with tubular necrosis; J96.01 Acute respiratory failure with hypoxia; L03.116 Cellulitis of left lower limb; M86.172 Other acute osteomyelitis, left ankle and foot; R47.01 Aphasia; G81.91 Hemiplegia, unspecified affecting right dominant side; N25.81 Secondary hyperparathyroidism of renal origin; E87.1 Hypo-osmolality and hyponatremia; I13.0 Hypertensive heart and chronic kidney disease with heart failure and stage 1 through stage 4 chronic kidney disease, or unspecified chronic kidney disease; G45.9 Transient cerebral ischemic attack, unspecified; N18.30 Chronic kidney disease, stage 3 unspecified; E11.22 Type 2 diabetes mellitus with diabetic chronic kidney disease; E11.69 Type 2 diabetes mellitus with other specified complication; E11.51 Type 2 diabetes mellitus with diabetic peripheral angiopathy without gangrene; E11.42 Type 2 diabetes mellitus with diabetic polyneuropathy; E11.621 Type 2 diabetes mellitus with foot ulcer; L97.529 Non-pressure chronic ulcer of other part of left foot with unspecified severity; E11.649 Type 2 diabetes mellitus with hypoglycemia without coma; D63.1 Anemia in chronic kidney disease; F41.9 Anxiety disorder, unspecified; I50.9 Heart failure, unspecified; D50.9 Iron deficiency anemia, unspecified; E55.9 Vitamin D deficiency, unspecified; I25.10 Atherosclerotic heart disease of native coronary artery without angina pectoris; B35.3 Tinea pedis; B35.1 Tinea unguium; R47.81 Slurred speech; R33.9 Retention of urine, unspecified; Z88.5 Allergy status to narcotic agent; Z79.4 Long term (current) use of insulin; Z74.01 Bed confinement status; Z79.01 Long term (current) use of anticoagulants; Z79.899 Other long term (current) drug therapy
CPT/HCPCS: 36415; 36600; 70450; 70496; 70498; 70551; 71045; 71250; 76770; 80048; 80053; 80069; 80202; 81001; 82024; 82306; 82533; 82550; 82570; 82627; 82728; 82805; 82947; 83540; 83605; 83735; 83880; 83935; 83970; 84100; 84132; 84156; 84300; 84443; 84466; 85025; 85610; 85730; 87040; 92610; 93005; 93306; 93926; 94010; 94640; 94760; 96365; 96375; 97116; 97161; 97530; 99285; J0692; J1815; J1940; J2270; J2543; J2550; J2916; J2919; J7030; J7040; J7050; J7605; J7613; Q9967

== ENCOUNTER 2024-05-19 07:13 | Inpatient (IN) | payer MEDICARE ==
--- NOTE | 2024-05-19 08:53 | RAD REPORT ---
EXAMINATION: ONE VIEW CHEST XR CLINICAL INDICATION: DYSPNEA TECHNIQUE: Frontal chest projection is submitted. Examination is limited by patient positioning and t echnique. COMPARISON: 05/14/2024 FINDINGS: Patchy opacities are present in both lungs, greatest in the medial right lung base likely pneumonia. The heart is normal in size. No displaced fractures identified. Right-sided PICC line and its tip in SVC. IMPRESSION: Patchy opacity in the medial right lung base likely representing infection/pneumonia.
[2024-05-19 08:55] LABS: Absolute Basophils 0.1 K/uL (0-0.5); Absolute Eosinophils 0.2 K/uL (0-0.5); Absolute Lymphocytes (CBC) 1.1 K/uL (0.7-4.9); Absolute Monocytes 0.9 K/uL (0.1-1.3); Absolute Neutrophil 10.3 K/uL (1.8-8.0); Eosinophils % 1.3 % (0-4.4); Hematocrit 28.4 % (36.0-45.0); Hemoglobin 8.9 g/dL (12.0-15.0); Lymphocytes % 8.7 % (15.3-44.8); MCH 28.1 pg (27.0-35.0); MCHC 31.4 g/dL (32.0-36.0); MCV 89.4 fL (80-100); Monocytes % 7.4 % (3.3-12.3); Neutrophils % 81.6 % (41.7-73.7); Platelets 316 thou/uL (152-406); RBC Red Blood Cell Count 3.17 M/uL (3.86-4.86); Red Cell Distribution Width 14.9 % (12.1-15.2)
[2024-05-19 09:15] LABS: Anion Gap 14.3 mEq/L (5.0-15.0)
[2024-05-19 09:16] LABS: Potassium 5.3 mEq/L (3.5-5.1); Troponin High Sensitivity 121.2 pg/mL (<58.9)
[2024-05-19] MEDS ORDERED: VANCOMYCIN 1 GM/VIAL ONE (09:49)
[2024-05-19] MEDS ORDERED: CEFEPIME 2 GM VIAL ONE (09:50)
[2024-05-19] MEDS ORDERED: NA CHLORIDE 0.9% 100 ML ONE (09:50)
[2024-05-19] MEDS ORDERED: NA CHLORIDE 0.9% 500 ML ONE (09:50)
[2024-05-19] MEDS ORDERED: AZITHROMYCIN 500 MG INJ IVPB ONE (09:50)
[2024-05-19] MEDS ORDERED: ASPIRIN 81 MG CHEWABLE TABLET ONE (09:50)
--- NOTE | 2024-05-19 09:57 | EDPHYS ---
Physician Documentation [facility] Name: Lui Cespedes Age: 84 yrs Sex: Female : 1940 Arrival Date: 05/19/2024 Time: 07:13 Bed 13 Private MD: ED Physician Loy Broderick HPI: 05/19 07:40 This 84 yrs old Female presents to ER via Ambulatory with complaints of Breathing ms3 Difficulty. 07:40 84-year-old female with past medical history of diabetes, hypertension, intermittent ms3 claudication presents to the emergency department for shortness of breath that has been ongoing for 2 days since her previous discharge. Patient denies pain. Patient denies any alleviating or inciting factors. Patient endorses generalized weakness. Historical: - Allergies: 07:27 Fentanyl; mb9 07:27 NARCOTICS; mb9 - Home Meds: 07:27 Xarelto oral [Active]; Insulin: Novolin R Sub-Q [Active]; pentoxifylline Oral [Active]; mb9 Quinapril HCl Oral [Active]; - PMHx: 07:27 diabetes mellitus; Hypertensive disorder; Intermittent Claudication; mb9 - PSHx: 07:27 left leg stent; mb9 - Immunization history:: Adult Immunizations up to date. - Infectious Disease History:: Denies. - Social history:: Smoking status: . ROS: 07:40 Cardiovascular: Negative for chest pain, and palpitations. ms3 07:40 MS/Extremity: Negative for injury and deformity, Skin: Negative for injury, rash, and discoloration, 07:40 Constitutional: Positive for Generalized weakness, 07:40 Respiratory: Positive for dyspnea on exertion, shortness of breath, Exam: 07:40 Constitutional: This is a well developed, well nourished patient who is awake, alert, ms3 and in no acute distress. Chest/axilla: Normal chest wall appearance and motion. Nontender with no deformity. Cardiovascular: Regular rate and rhythm with a normal S1 and S2. No gallops, murmurs, or rubs. Normal PMI, no JVD. No pulse deficits. Abdomen/GI: Soft, non-tender, with normal bowel sounds. No distension or tympany. No guarding or rebound. No evidence of tenderness throughout. Skin: Warm, dry with normal turgor. Normal color with no rashes, no lesions, and no evidence of cellulitis. 07:40 Respiratory: the patient does not display signs of respiratory distress, Respirations: normal, Breath sounds: rales, that are mild, are located in both bases, 11:17 ECG was reviewed by the Attending Physician. ms3 Vital Signs: 07:35 BP 112 / 74; Pulse 84; Resp 18; Temp 98; Pulse Ox 100% on R/A; Weight 77.11 kg; Height mb9 5 ft. 5 in. ; Pain 0/10; 08:52 BP 164 / 64; Pulse 82; Resp 16; Pulse Ox 100% on R/A; mb9 10:08 BP 136 / 64; Pulse 83; Resp 18; Pulse Ox 100% on 2 lpm NC; mb9 11:19 BP 130 / 82; Pulse 74; Resp 16; Pulse Ox 100% on 2 lpm NC; mb9 07:35 Body Mass Index 28.29 (77.11 kg, 165.1 cm) mb9 07:35 Pain Scale: Adult mb9 MDM: 07:40 Differential diagnosis: CHF exacerbation, pneumonia, pulmonary edema. ms3 08:07 Medical Screening Exam initiated ms3 11:17 Data reviewed: vital signs, nurses notes, lab test result(s), EKG, radiologic studies, ms3 and as a result, I will admit patient. Consideration of Admission/Observation Patient was admitted/placed on observation. Management of patient was discussed with the following: Hospitalist: Dr Bowers. I considered the following discharge prescriptions or medication management in the emergency department Medications were administered in the Emergency Department. See MAR. Independent interpretation of the following test(s) in the Emergency Department EKG: See my EKG interpretation above watch and clock repairer: rate is 82 beats/min, Rhythm is normal sinus rhythm, regular, with no ectopy, Interpretation: normal rate, normal rhythm. Counseling: I had a detailed discussion with the patient and/or guardian regarding the historical points, exam findings, and any diagnostic results supporting the discharge/admit diagnosis, lab results, radiology results, the need for further work-up and treatment in the hospital. ED course: Discussed necessity for admission with patient. Patient understands and agrees with plan. All questions were answered. Patient remains in stable condition in the emergency department.. 05/19 07:39 Order name: Basic Metabolic Panel; Complete Time: 09:34 ms3 05/19 07:39 Order name: CBC with Diff; Complete Time: 09:02 ms3 05/19 07:39 Order name: NT PRO-BNP; Complete Time: 09:34 ms3 05/19 07:39 Order name: Troponin HS; Complete Time: 09:34 ms3 05/19 09:34 Order name: Potassium; Complete Time: 11:17 ms3 05/19 09:36 Order name: Blood Culture Adult (2) ms3 05/19 09:36 Order name: Lactate w/ 2H reflex if indic.; Complete Time: 11:17 ms3 05/19 09:36 Order name: Protime (+inr) ms3 05/19 09:36 Order name: Ptt, Activated ms3 05/19 09:37 Order name: LFT's ms3 05/19 10:28 Order name: Procalcitonin ph 05/19 10:44 Order name: C.difficile GDH Ag EDMS 05/19 10:44 Order name: Stool Culture EDMS 05/19 10:52 Order name: CBC with Automated Diff EDMS 05/19 10:52 Order name: CBC with Automated Diff EDMS 05/19 10:52 Order name: Comprehensive Metabolic Panel EDMS 05/19 10:52 Order name: Comprehensive Metabolic Panel EDMS 05/19 10:52 Order name: Lipid Profile EDMS 05/19 10:52 Order name: Lipid Profile EDMS 05/19 10:52 Order name: Troponin High Sensitivity EDMS 05/19 10:52 Order name: Troponin High Sensitivity EDMS 05/19 10:52 Order name: Troponin High Sensitivity EDMS 05/19 07:39 Order name: XRAY Chest (1 view); Complete Time: 09:02 ms3 05/19 10:52 Order name: CONS Physician Consult EDMS 05/19 07:39 Order name: Cardiac monitoring; Complete Time: 08:47 ms3 05/19 07:39 Order name: EKG - Nurse/Tech; Complete Time: 08:47 ms3 05/19 07:39 Order name: IV Saline Lock; Complete Time: 08:47 ms3 05/19 07:39 Order name: Labs collected and sent; Complete Time: 08:47 ms3 05/19 07:39 Order name: O2 Per Protocol; Complete Time: 08:47 ms3 05/19 07:39 Order name: O2 Sat Monitoring; Complete Time: 08:47 ms3 05/19 09:36 Order name: Accucheck; Complete Time: 09:57 ms3 05/19 09:36 Order name: IV Saline Lock - Large Bore; Complete Time: 09:57 ms3 05/19 09:36 Order name: Vital Signs; Complete Time: 09:57 ms3 EC:17 Rate is 82 beats/min. Rhythm is regular. Right axis deviation noted. [place] interval is ms3 normal. QRS interval is normal. Clinical impression: Normal ECG. Interpreted by me. Reviewed by me. Administered Medications: 09:56 Not Given (Physician Discretion): cefepime2 grams IVPB at 200 ml/hr once over 30 mins; mb9 (mix in NS 100 mL) 09:57 Not Given (Physician Discretion): vancomycin1 grams IVPB once over 2 hrs mb9 10:07 Drug: Aspirin PO Chewable Tablet 324 mg PO once; 81 mg tablets x 4 Route: PO; mb9 10:31 Follow up: Response: No adverse reaction mb9 10:07 Drug: Cefepime IVPB 1 grams IVPB at 200 ml/hr once over 30 mins; (mix in NS 100 mL) mb9 Route: IVPB; Rate: 200 ml/hr; Infused Over: 30 mins; Site: right antecubital; 10:31 Follow up: Response: No adverse reaction; IV Status: Completed infusion mb9 10:18 Drug: AZITHromycin IVPB 500 mg IVPB once over 1 hrs; (mix in 250 mL NS) Route: IVPB; mb9 Infused Over: 1 hrs; Site: right antecubital; 11:18 Follow up: Response: Adverse reaction, Physician notified; IV Status: Order to mb9 discontinue infusion; Pt states feeling SOB and N. VO from Dr. Bowers to stop IV fusion Disposition: 11:17 Critical Care:. ms3 Disposition Summary: 05/19/24 09:57 Hospitalization Ordered Notes: Hospitalization Status: Inpatient Admission ms3 Provider: Alondra Bowers ms3 Location: Telemetry/[facility] (Inpatient) ms3 Condition: Stable ms3 Problem: new ms3 Symptoms: are unchanged ms3 Bed/Room [facility]: [facility] Room Assignment: 225(05/19/24 10:59) bd Diagnosis - Pneumonia, unspecified organism ms3 - Subsequent non-ST elevation (NSTEMI) myocardial infarction ms3 - Heart failure, unspecified ms3 Forms: - Medication Reconciliation Form ms3 - SBAR form ms3 - Leadership Thank You Letter ms3 Critical care time excluding procedures: 11:17 Critical care time: Bedside Care: 35 minutes, Consultation: 10 minutes, Family ms3 Intervention: 5 minutes. Total time: 50 minutes Signatures: Dispatcher [employer] EDMS Sussy Granado Shelly, BOLT MAN-C BOLT MAN-Csnw Girish Alexander, RN RN ll1 Loy Broderick DO DO ms3 Danielle Azar RN RN mb9 Corrections: (The following items were deleted from the chart) 09:35 09:35 POTASSIUM+C.LAB.BRZ ordered. EDMS EDMS 09:36 09:36 BLOOD CULTURE*+BA.LAB.BRZ ordered. EDMS EDMS 09:36 09:36 LACTATE+C.LAB.BRZ ordered. EDMS EDMS 09:36 09:36 PROTIME (+INR)+COAG.LAB.BRZ ordered. EDMS EDMS 09:36 09:36 PTT, ACTIVATED+COAG.LAB.BRZ ordered. EDMS EDMS 10:59 09:57 ms3 bd
--- NOTE | 2024-05-19 09:57 | ER ---
Nurse's Notes [facility] Name: Lui Cespedes Age: 84 yrs Sex: Female : 1940 Arrival Date: 05/19/2024 Time: 07:13 Bed 13 Private MD: Diagnosis: Pneumonia, unspecified organism;Subsequent non-ST elevation (NSTEMI) myocardial infarction;Heart failure, unspecified Presentation: 05/19 07:30 Ebola Screen: Patient denies travel to an Ebola-affected area in the 21 days before ll1 illness onset. Initial Sepsis Screen: Does the patient meet any 2 criteria? No. Patient's initial sepsis screen is negative. Does the patient have a suspected source of infection? No. Patient's initial sepsis screen is negative. Risk Assessment: Do you want to hurt yourself or someone else? Patient reports no desire to harm self or others. 07:30 Method Of Arrival: Ambulatory 1 07:30 Acuity: [place] 3 1 07:30 Chief complaint: Patient states: SOB continues since being discharged a few days ago. ll1 Very upset and cannot sleep. Coronavirus screen: Client denies travel out of the [place] in the last 14 days. 07:35 Onset of symptoms was May 19, 2024. mb9 Triage Assessment: 07:36 General: Appears in no apparent distress. Respiratory: Onset: The symptoms/episode mb9 began/occurred yesterday. Respiratory: the patient has mild shortness of breath. Historical: - Allergies: 07:27 Fentanyl; mb9 07:27 NARCOTICS; mb9 - Home Meds: 07:27 Xarelto oral [Active]; Insulin: Novolin R Sub-Q [Active]; pentoxifylline Oral [Active]; mb9 Quinapril HCl Oral [Active]; - PMHx: 07:27 diabetes mellitus; Hypertensive disorder; Intermittent Claudication; mb9 - PSHx: 07:27 left leg stent; mb9 - Immunization history:: Adult Immunizations up to date. - Infectious Disease History:: Denies. - Social history:: Smoking status: . Screenin:34 [facility] ED Fall Risk Assessment (Adult) History of falling in the last 3 months, mb9 including since admission No falls in past 3 months (0 pts) Confusion or Disorientation No (0 pts) Intoxicated or Sedated No (0 pts) Impaired Gait No (0 pts) Mobility Assist Device Used No (0 pt) Altered Elimination No (0 pt) Score/Fall Risk Level 0 - 2 = Low Risk Oriented to surroundings, Maintained a safe environment, Educated pt \T\ family on fall prevention, incl call for assistance when getting out of bed. Abuse screen: Denies threats or abuse. Nutritional screening: No deficits noted. Tuberculosis screening: No symptoms or risk factors identified. Assessment: 07:34 General: Appears in no apparent distress. Behavior is agitated, anxious, fussy. Pain: mb9 Denies pain. Neuro: Ruano Agitation-Sedation Scale (RASS): 0 - Alert and Calm Level of Consciousness is awake, alert, obeys commands, Oriented to person, place, time, situation, Appropriate for age. Neuro: Reports weakness. Cardiovascular: Heart tones S1 S2 present Patient's skin is warm and dry. Rhythm is regular. Respiratory: Reports shortness of breath at rest on exertion Airway is patent Respiratory effort is even, unlabored, Respiratory pattern is regular, symmetrical, Breath sounds are clear bilaterally. GI: Abdomen is round non-distended, Bowel sounds present X 4 quads. : No signs and/or symptoms were reported regarding the genitourinary system. EENT: No signs and/or symptoms were reported regarding the EENT system. Derm: Skin is fragile, is thin, Skin is dry, Skin is normal, Skin temperature is warm. Musculoskeletal: Range of motion: intact in all extremities. 09:00 Reassessment: No changes from previously documented assessment. Patient and/or family mb9 updated on plan of care and expected duration. Pain level reassessed. Patient is alert, oriented x 3, equal unlabored respirations, skin warm/dry/pink. 10:18 Reassessment: Patient appears in no apparent distress at this time. No changes from mb9 previously documented assessment. Patient and/or family updated on plan of care and expected duration. Pain level reassessed. Patient is alert, oriented x 3, equal unlabored respirations, skin warm/dry/pink. 11:19 Reassessment: No changes from previously documented assessment. Patient and/or family mb9 updated on plan of care and expected duration. Pain level reassessed. Patient is alert, oriented x 3, equal unlabored respirations, skin warm/dry/pink. Vital Signs: 07:35 BP 112 / 74; Pulse 84; Resp 18; Temp 98; Pulse Ox 100% on R/A; Weight 77.11 kg; Height mb9 5 ft. 5 in. ; Pain 0/10; 08:52 BP 164 / 64; Pulse 82; Resp 16; Pulse Ox 100% on R/A; mb9 10:08 BP 136 / 64; Pulse 83; Resp 18; Pulse Ox 100% on 2 lpm NC; mb9 11:19 BP 130 / 82; Pulse 74; Resp 16; Pulse Ox 100% on 2 lpm NC; mb9 07:35 Body Mass Index 28.29 (77.11 kg, 165.1 cm) mb9 07:35 Pain Scale: Adult mb9 ED Course: 07:21 Patient arrived in ED. ra3 07:26 Loy Broderick DO is Attending Physician. ms3 07:27 Danielle Azar, NIMO is Primary Nurse. mb9 07:27 Arm band placed on. mb9 07:29 Patient placed in an exam room, on a stretcher. ll1 07:30 Triage completed. ll1 07:34 Placed in gown. Bed in low position. Call light in reach. Side rails up X 1. Provided mb9 Education on: press call light if needing anything. Client placed on continuous cardiac and pulse oximetry monitoring. NIBP monitoring applied. security monitor on. Door closed. Noise minimized. Warm blanket given. Pillow given. 07:37 Repositioned patient. Cleaned of incontinence. brief placed on pt. mb9 07:45 EKG done, by ED staff, reviewed by Loy Broderick DO. mb9 08:14 XRAY Chest (1 view) In Process Unspecified. EDMS 08:20 Missed attempt(s): 20 gauge in left antecubital area. Bleeding controlled, band aid mb9 applied, catheter tip intact. 08:46 Initial lab(s) drawn, by me, sent to lab. Missed attempt(s): 22 gauge in left forearm. mb9 Bleeding controlled, band aid applied, catheter tip intact. 09:29 No provider procedures requiring assistance completed. mb9 09:52 Alondra Bowers MD is Hospitalizing Provider. ms3 10:00 First set of blood cultures drawn by me. bc6 10:05 Blood Culture Adult (2) Sent. bc6 10:05 Lactate w/ 2H reflex if indic. Sent. bc6 10:05 Protime (+inr) Sent. bc6 10:05 Inserted saline lock: 20 gauge in right antecubital area, using aseptic technique. bc6 Blood collected. Flushed with 10 mL NS. 10:08 Patient admitted, IV remains in place. mb9 Administered Medications: 09:56 Not Given (Physician Discretion): cefepime2 grams IVPB at 200 ml/hr once over 30 mins; mb9 (mix in NS 100 mL) 09:57 Not Given (Physician Discretion): vancomycin1 grams IVPB once over 2 hrs mb9 10:07 Drug: Aspirin PO Chewable Tablet 324 mg PO once; 81 mg tablets x 4 Route: PO; mb9 10:31 Follow up: Response: No adverse reaction mb9 10:07 Drug: Cefepime IVPB 1 grams IVPB at 200 ml/hr once over 30 mins; (mix in NS 100 mL) mb9 Route: IVPB; Rate: 200 ml/hr; Infused Over: 30 mins; Site: right antecubital; 10:31 Follow up: Response: No adverse reaction; IV Status: Completed infusion mb9 10:18 Drug: AZITHromycin IVPB 500 mg IVPB once over 1 hrs; (mix in 250 mL NS) Route: IVPB; mb9 Infused Over: 1 hrs; Site: right antecubital; 11:18 Follow up: Response: Adverse reaction, Physician notified; IV Status: Order to mb9 discontinue infusion; Pt states feeling SOB and N. VO from Dr. Bowers to stop IV fusion Medication: 07:34 VIS not applicable for this client. [email or web address] Intake: Outcome: 09:57 Decision to Hospitalize by Provider. ms3 11:20 Admitted to Med/surg accompanied by ingrid, via stretchermeredith 11:20 Condition: stable 11:20 Instructed on the need for admit, 11:54 Patient left the ED. meredith Signatures: Dispatcher [employer] EDMS Girish Alexander, RN RN ll1 Loy Broderick DO DO ms3 Danielle Azar RN RN mb9 Aleyda Garcia bc6 Crista Meyer ra3 Corrections: (The following items were deleted from the chart) 08:47 07:35 Pulse 84bpm; Resp 18bpm; Pulse Ox 100% RA; Temp 98F; 77.11 kg; Height 5 ft. 5 mb9 in.; BMI: 28.2; Pain 0/10, Adult; mb9
--- NOTE | 2024-05-19 10:42 | P.HP ---
Certification for Inpatient Patient admitted to: Inpatient With expected LOS: >2 Midnights Patient will require the following post-hospital care: Residential Practitioner: I am a practitioner with admitting privileges, knowledge of patient current condition, hospital course, and medical plan of care. Services: Services provided to patient in accordance with Admission requirements found in Title 42 Section 412.3 of the Code of Federal Regulations Patient History Date of Service: 05/19/24 Reason for admission: Shortness of breath; persistent diarrhea; CARLOS History of Present Illness: Patient is an 84-year-old female who had a prolonged hospital stay and was just discharged a few days ago. At that time she presented with heart failure symptoms and a pneumonia. She developed confusion during her hospital stay and she was worked up for CVA. Her workup showed that she had CHF with an ejection fraction of 40 to 45% and she had wall motion abnormality with hypokinesis in multiple areas. At that time cardiology did not want to do any aggressive intervention and patient was discharged home on medical therapy. We increased her Lasix to twice a day at that time. Patient was discharged home and she was feeling pretty good but apparently she developed diarrhea and she may have been over diuresed. She came back in here with CARLOS and diarrhea. Concern for C. difficile. C. difficile toxins pending. Patient with prerenal azotemia and will gently hydrate patient. At this time, patient will be admitted to the hospital for further workup. Allergies No Known Allergies Allergy (Verified 06/27/20 10:50) Home Medications: Insulin NPH Human Isophane [Novolin N] 20 unit SQ DAILY 05/05/24 Insulin Regular, Human [Novolin R] See Protocol SQ ACHS 05/05/24 Pregabalin [Lyrica*] 50 mg PO BEDTIME 05/05/24 Rivaroxaban [Xarelto*] 10 mg PO DAILY 05/05/24 Ticagrelor [Brilinta*] 90 mg PO BID 05/05/24 lisinopriL [Lisinopril] 20 mg PO DAILY 05/05/24 Pentoxifylline 400 mg PO BID 05/09/24 Famotidine [Pepcid*] 20 mg PO BEDTIME #30 tab 05/14/24 Furosemide [Lasix*] 20 mg PO BIDAC #60 tab 05/14/24 Metoprolol Succinate [Toprol Xl*] 25 mg PO BID 6AM 6PM #60 tab 05/14/24 Nystatin Oint [Mycostatin 100 Mu/Gm Oint*] 1 appl TOP BID #1 tube 05/14/24 Potassium Chloride 10 meq PO DAILY #30 tab 05/14/24 Nitroglycerin Oint [Nitrol Oint] 30 gm TD PRN #1 tube 05/15/24 - Past Medical/Surgical History -: DM -: HTN -: Cardiomyopathy/EF 40 to 45% -: PAD -: Bypass - Family History Father Family History: Reviewed- Non-Contributory - Social History Smoking Status: Never smoker Alcohol use: No CD- Drugs: No Caffeine use: Yes Review of Systems 10-point ROS is otherwise unremarkable Physical Examination - Vital Signs Temperature: 99 F Blood Pressure: 110/70 Pulse: 95 Respirations: 24 Pulse Ox (%): 89 - Physical Exam General: Alert, In no apparent distress, Oriented x3, Mild distress HEENT: Atraumatic, Normocephalic Neck: Supple, 2+ carotid pulse no bruit, JVD not distended, No Thyromegaly, No LAD Respiratory: Diminished Cardiovascular: Regular rate/rhythm, Normal S1 S2, Abnormal pulses, Systolic murmur Gastrointestinal: Normal bowel sounds, Soft and benign, Distended Musculoskeletal: No clubbing, Swelling Integumentary: No rashes Neurological: Normal speech, Normal strength at 5/5 x4 extr, Sensation intact, Cranial nerves 3-12 intact - Studies Laboratory Data (last 24 hrs) 05/19/24 05/19/24 05/19/24 10:00 08:43 08:43 WBC 12.60 H Hgb 8.9 L Hct 28.4 L Plt Count 316 Sodium 138 Potassium 5.2 H 5.3 H BUN 89 H Creatinine 3.42 H Glucose 262 H Assessment & Plan - Problems (Diagnosis) (1) Dyspnea Current Visit: No Status: Acute (2) CARLOS (acute kidney injury) Current Visit: Yes Status: Acute (3) Prerenal azotemia Current Visit: Yes Status: Acute (4) Diarrhea Current Visit: Yes Status: Acute (5) CHF (congestive heart failure) Current Visit: Yes Status: Acute (6) TIA (transient ischemic attack) Current Visit: Yes Status: Acute (7) PAD (peripheral artery disease) Current Visit: Yes Status: Acute - Plan Plan: 1. Dyspnea on; most likely related to multifactorial etiology including patient with prerenal azotemia, diarrhea, dehydration, history of cardiomyopathy with an EF of 40 to 45%; questionable infiltrate mentioned on the x-ray; chest x-ray comparable to prior x-ray from a few days before. At that time there was no mention of an infiltrate. Both blood cultures and procalcitonin level pending. Will cover with broad-spectrum antibiotic for healthcare acquired pneumonia. Will gently hydrate patient as patient with significant prerenal azotemia. Will monitor her volume status closely. We did increase her diuretics prior to her discharging and I believe along with her diarrhea as she has been over diuresed. BNP elevated possibly related to multiple other etiologies as patient's blood pressure and diastolic function is elevated. Will monitor her volume status and repeat x-ray in the morning 2. Cardiomyopathy; patient with an EF of 40 to 45%. Monitor her volume status closely. Cardiology consultation. Currently patient appears to be over diuresed as she is in acute renal failure from what looks to be prerenal azotemia. Will back off on her diuretics for the short term and see how she response. Her ejection fraction is fairly adequate at 45%. 3. Persistent diarrhea; stools pending-C. difficile and cultures 4. elevated troponins; continue with cardiac follow-up 5. anemia; continue monitoring H&H and check iron levels and B12 levels monitor renal function closely 6. Gi DVT prophylaxis Discharge Plan: Home Plan to discharge in: Greater than 2 days - Advance Directives Does patient have a Living Will: No Does patient have a Durable POA for Healthcare: No - Code Status/Comfort Care Code Status Assessed: Yes Code Status: Full Code Critical Care: No Time Spent Managing PTS Care (In Minutes): 45
[2024-05-19] MEDS ORDERED: ACETAMINOPHEN 500 MG TAB PO PRN (10:47)
[2024-05-19] MEDS ORDERED: MORPHINE 2 MG/ML SYR IV PRN (10:47)
[2024-05-19] MEDS ORDERED: ONDANSETRON 4 MG/2 ML VIAL IV PRN (10:47)
[2024-05-19] MEDS: PIPER TAZO 3.375 GM in NA CHLORIDE 0.9% 100 ML IV SCH ×2 (11:00→14:34)
[2024-05-19 12:25] LABS: PT Prothrombin Time 14.3 SECONDS (9.4-12.5); PTT, Activated Partial Thromb 35.4 SECONDS (24.3-36.9); Protime INR 1.29
[2024-05-19 12:31] LABS: ALT/SGPT 28 U/L (13-56); AST/SGOT 23 U/L (15-37); Albumin/Globulin Ratio 0.7 (1.1-1.8); Alkaline Phosphatase 110 U/L (45-117); Bilirubin Total 0.4 mg/dL (0.2-1.0); Globulin 4.6 g/dL (2.3-3.5); Protein, Total 7.6 g/dL (6.4-8.2)
[2024-05-19] MEDS: NA CHLORIDE 0.9% 1,000 ML IV SCH (12:31)
[2024-05-19 12:32] LABS: Bilirubin Direct < 0.2 mg/dL (0-0.2); Bilirubin Indirect, Calculated 0.2 mg/dL (0.2-0.8)
[2024-05-19 12:40] LABS: Phosphorus 5.2 mg/dL (2.5-4.9); Uric Acid 7.9 mg/dL (2.6-6.0)
--- NOTE | 2024-05-19 12:49 | EKG ---
Test Date: 2024-05-19 Test Time: 07:49:30 Client Service Professional: MB MEASUREMENT RESULTS: Intervals: Rate: 82 FL: 196 QRSD: 100 QT: 384 QTc: 448 [place]: P: 88 FL: 196 QRS: 94 T: 84 INTERPRETIVE STATEMENTS: Normal sinus rhythm Rightward axis Borderline ECG Compared to ECG 05/14/2024 11:02:47 Right-axis deviation now present Sinus tachycardia no longer present Myocardial infarct finding no longer present Electronically Signed On 05-19-24 12:47:53 CDT by Gumaro Mcdowell
[2024-05-19] MEDS: ALPRAZOLAM 0.25 MG TABLET PO ONE (14:34)
[2024-05-19] MEDS ORDERED: D50W 25 GM/50 ML SYRINGE IV PRN (16:04)
--- NOTE | 2024-05-19 16:28 | RAD REPORT ---
EXAMINATION: US RETROPERITONEUM CLINICAL INDICATION: abran TECHNIQUE: Real-time ultrasonography of the abdomen was performed. COMPARISON: 05/09/2024 FINDINGS: RIGHT KIDNEY: Right renal length measurement: 9.3 cm. Normal in echogenicity and size. No calculus, s olid mass or hydronephrosis. LEFT KIDNEY: Left renal length measurement: 9.4 cm. Normal in echogenicity and size. No calculus, vernell id mass or hydronephrosis. ADDITIONAL FINDINGS: None. IMPRESSION: No acute or significant abnormalities. No hydronephrosis.
[2024-05-19] MEDS ORDERED: GLUCAGON 1 MG/VIAL IM PRN (16:31)
[2024-05-19] MEDS ORDERED: D10W 125 ML IV PRN (16:31)
[2024-05-19] MEDS: INSULIN NPH (HUMAN) 100 UNITS/ML SQ SCH (16:37)
[2024-05-19] MEDS: FUROSEMIDE 20 MG TABLET PO SCH (16:52)
[2024-05-19] MEDS: METOPROLOL XL 25 MG TAB PO SCH (17:03)
[2024-05-19 18:26] LABS: Anion Gap 14.9 mEq/L (5.0-15.0); Potassium 5.9 mEq/L (3.5-5.1)
[2024-05-19] MEDS: QUETIAPINE 25 MG TAB PO SCH (19:45)
[2024-05-19] MEDS: D5W 1,000 ML with NA BICARB 8.4% 100 MEQ IV SCH (19:46)
[2024-05-19] MEDS: Meropenem 500 MG in NA CHLORIDE 0.9% 100 ML IV SCH (20:33)
[2024-05-19] MEDS: TICAGRELOR 90 MG TABLET PO SCH (20:33)
[2024-05-19] MEDS: PREGABALIN 50 MG CAP PO SCH (20:33)
[2024-05-19] MEDS: FAMOTIDINE 20 MG TAB PO SCH (20:33)
[2024-05-19] MEDS: PENTOXIFYLLINE ER 400 MG TAB PO SCH (20:33)
[2024-05-19] MEDS: SODIUM ZIRCONIUM CYCLOSILICATE 10 GM/PKT PO ONE (20:54)
--- NOTE | 2024-05-19 23:37 | CON ---
Date of Consultation: 05/19/2024 Chief Complaint: Acute kidney injury. History Of Present Illness: The patient presented to the hospital because of generalized weakness, p ersistent diarrhea, abdominal distention, shortness of breath. The patient is admitted to the hospit al because of acute kidney injury. She recently was treated at home with vancomycin and cefepime for lower extremity infection, cellulitis, and osteomyelitis. The patient is an 84-year-old woman with history of previous admission for lower extremity cellulitis. She was discharged several days ago an d went home, although she came to the hospital because of generalized weakness. She was found to hav e acute on chronic kidney injury. Nephrology consultation is requested for acute kidney injury. The patient has nonoliguric urine output and she was found to have hyperkalemia and is started on IV dri p with sodium bicarbonate. She received Lokelma for hyperkalemia, potassium level is 5.7. There is borderline metabolic acidosis present. She developed confusion during her previous hospitalization w hen she had workup done for CVA. She has history of congestive heart failure. Workup done in the em ergency room showed pulmonary infiltrates consistent with pneumonia. The patient has history of nate estive heart failure with reduced ejection fraction. She was found to have cardiac wall motion abnor malities with . At that time, rate supervisor did not recommend aggressive intervention and t he patient was discharged home on IV antibiotics for lower extremity cellulitis and infection. Lasix was increased to twice a day for congestive heart failure. The patient was on home antibiotic thera py with vancomycin and cefepime. Recently, she developed diarrhea and came to the hospital because o f decreased p.o. intake and persistent diarrhea. She states that she had several bowel movements a d ay. 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 Family History: Noncontributory. Social History: Denies tobacco, alcohol. Denies drugs. Review of Systems: Constitutional: She has low-grade fever. Denies syncope. Eyes: Denies new vision changes. Ears, Nose, Mouth, and Throat: Denies sore throat, ear ache. Respiratory: Denies hemoptysis. She has dyspnea at rest and dyspnea on exertion. She is bedbound. GI: She has abdominal distention. Denies melena, hematemesis. She has diarrhea. Denies nausea, vo miting. : Denies dysuria, hematuria. Extremities: She has edema in both legs recently, progressively worse. All other systems reviewed and all are negative. Physical Examination: General: The patient is alert, oriented x3. HEENT: Atraumatic, normocephalic. Anicteric sclerae. Neck: Supple. JVD nondistended. No thyromegaly. Respiratory: Diminished breath sounds at bases. Few rhonchi. Heart: S1, S2. No pericardial friction rub. Abdomen: Soft. There is tenderness. No rebound. No guarding. Extremities: Slight edema present in both ankles. Neurological: Moving extremities. Cranial nerves intact. Laboratory Data: WBC 12.6, hemoglobin 8.9. Sodium 138, potassium 5.3 and 5.7, BUN 89, creatinine 3. 42, glucose 262. Impression And Plan: 1.Uncontrolled diabetes, acute on chronic kidney injury associated with hyperkalemia and borderline metabolic acidosis related to chronic kidney disease and acute kidney injury. The patient was starte d on mild hydration. The patient has history of congestive heart failure with systolic dysfunction. Monitor fluid balance. The patient previously was taking Lasix and TRICIA inhibitor, which was contrib utory to acute on chronic kidney injury in setting of volume depletion, which was due to persistent d iarrhea and decreased p.o. intake. The patient has prerenal azotemia, likely nonoliguric ATN. Jl nue to monitor daily electrolytes. Plan is to check CK level and renal ultrasound. Renal ultrasound is ordered to rule out urinary retention and rule out hydronephrosis. The patient had blood culture and urine culture done to rule out bacteremia. Due to the fact that patient was treated with vancom ycin, vancomycin level was re-evaluated. The patient likely had acute kidney injury. Secondary to v ancomycin toxicity and prerenal azotemia, ANCA test is done to check any evidence of vasculitis. 2.Persistent diarrhea. Workup pending and cultures were obtained. 3.Hypertension. Monitor blood pressure closely. TRICIA inhibitor on hold due to hyperkalemia and acut e kidney injury. 4.Hyperkalemia. The patient received Lokelma. Continue low-potassium diet. Re-evaluate lab work. ADRIANNE/MODL Voice ID: [id number] Report ID: [id number]
[2024-05-20] MEDS: ALPRAZOLAM 0.25 MG TABLET PO PRN (01:13)
[2024-05-20 04:51] LABS: Absolute Basophils 0.1 K/uL (0-0.5); Absolute Eosinophils 0.2 K/uL (0-0.5); Absolute Monocytes 0.9 K/uL (0.1-1.3); Basophils % 1.3 % (0-1.3); Eosinophils % 1.8 % (0-4.4); Hematocrit 25.2 % (36.0-45.0); Hemoglobin 7.9 g/dL (12.0-15.0); MCHC 31.4 g/dL (32.0-36.0); MCV 89.2 fL (80-100); MPV 9.2 fL (7.6-11.3); Neutrophils % 77.9 % (41.7-73.7); Platelets 269 thou/uL (152-406); RBC Red Blood Cell Count 2.82 M/uL (3.86-4.86); Red Cell Distribution Width 15.3 % (12.1-15.2)
[2024-05-20 05:11] LABS: Albumin 2.5 g/dL (3.4-5.0); Albumin/Globulin Ratio 0.6 (1.1-1.8); Anion Gap 12.6 mEq/L (5.0-15.0); Bilirubin Total 0.3 mg/dL (0.2-1.0); Potassium 4.6 mEq/L (3.5-5.1); Protein, Total 6.5 g/dL (6.4-8.2)
[2024-05-20] MEDS: RIVAROXABAN 10 MG TABLET PO SCH (08:26)
[2024-05-20] MEDS ORDERED: lisinopriL 20 MG TAB PO SCH (09:00)
[2024-05-20] MEDS: SOD FERRIC GLUC COMPLX/SUCROSE 250 MG in NA CHLORIDE 0.9% 250 ML IV SCH (11:06)
--- NOTE | 2024-05-20 11:43 | PN ---
Date of Progress Note: 05/20/2024 Subjective: The patient was admitted to the hospital with acute kidney injury. The patient found to be overvolume. The patient known to have congestive heart failure with ejection fraction of 40% as of April, this year. Objective: Vital Signs: Blood pressure 125/73, pulse of 72, afebrile. Chest: Crackles, bilateral. Heart: S1, S2. Systolic murmur. Abdomen: Soft, nontender. Extremities: Trace edema. Neuro: Alert. No focality. Laboratory Data: WBC 10.3, hemoglobin 7.9, sodium 136, potassium 4.6, bicarb 24, BUN 94, creatinine 3.8, GFR of 11, calcium 8.5, albumin 2.5. Current Medications: The patient on, it includes meropenem, Tegretol, Tylenol, bicarb drip, Pepcid, Lasix 20 daily. Assessment And Plan: 1. Acute kidney injury secondary to cardiorenal, nonoliguric, overvolume. I am going to go ahead and increase Lasix to 40 mg b.i.d. I had long discussion with the patient in the presence of the daughter that if kidney function continued to decline, patient may need to initiate on renal replacement therapy. The patient on agreement if this is temporary. Explained for the patient risks, benefits, and alternative and she is on agreement. We will follow up the patient in the next 24 hours depending on the kidney function. We will place the patient NPO. 2. Hyperkalemia secondary to renal failure, recovered, resolved. 3. Acidosis, resolved. We will go ahead and discontinue bicarb drip. 4. Anemia of chronic kidney disease, stable. The patient had workup on last admission had iron-deficiency anemia, minimal proteinuria. I am going to go ahead and send for protein electrophoresis and we will follow up the patient. We will start the patient on IV iron. 5. Hypertension. We will continue to utilize the blood pressure for more diuresis, increase Lasix 40 mg b.i.d. Please avoid any TRICIA inhibitor or ARB. 6. Congestive heart failure with exacerbation, as by Primary. Time spent examining the patient [id number] reviewing data lab and the radiology placing order discussing the case with the patient/family member, discussing the case with the steamfitter supervisor including hospitalist and nursing staff more than 55 minutes RODRIGUEZ Voice ID: [id number] Report ID: [id number] MARGARET
--- NOTE | 2024-05-20 13:59 | RAD REPORT ---
Procedure: Chest Single View HISTORY: Chest pain COMPARISON: May 19, 2024 FINDINGS: PICC line in the SVC. There may be [id number] right and small left pleural effusions Lungs are hazy which may indicate mild interstitial pulmonary edema. Heart is normal size.
--- NOTE | 2024-05-20 14:08 | P.CNS ---
Date of Consult: 05/20/24 Chief Complaint: Shortness of breath; persistent diarrhea; CARLOS History of Present Illness: Patient with PMH of systolic and diastolic heart failure, presented with worsening SOB, weakness, diarrhea, patient was recently in the hospital for Ostemyelitis and was discharged on IV Abx, Echo at that admission shown mild systolic dysfunction with normal filling pressures so advised to be discharged on medical treatment only, looks like patient was discharged on diuretics and also she has been having diarrhea and now presenting with CARLOS. denies chest pain, no syncope. Allergies No Known Allergies Allergy (Verified 06/27/20 10:50) Home medications list reviewed: Yes Home Medications: Insulin NPH Human Isophane [Novolin N] 20 unit SQ DAILY 05/05/24 Insulin Regular, Human [Novolin R] See Protocol SQ ACHS 05/05/24 Pregabalin [Lyrica*] 50 mg PO BEDTIME 05/05/24 Rivaroxaban [Xarelto*] 10 mg PO DAILY 05/05/24 Ticagrelor [Brilinta*] 90 mg PO BID 05/05/24 lisinopriL [Lisinopril] 20 mg PO DAILY 05/05/24 Pentoxifylline 400 mg PO BID 05/09/24 Famotidine [Pepcid*] 20 mg PO BEDTIME #30 tab 05/14/24 Furosemide [Lasix*] 20 mg PO BIDAC #60 tab 05/14/24 Metoprolol Succinate [Toprol Xl*] 25 mg PO BID 6AM 6PM #60 tab 05/14/24 Nystatin Oint [Mycostatin 100 Mu/Gm Oint*] 1 appl TOP BID #1 tube 05/14/24 Potassium Chloride 10 meq PO DAILY #30 tab 05/14/24 Nitroglycerin Oint [Nitrol Oint] 30 gm TD PRN #1 tube 05/15/24 - Past Medical/Surgical History -: DM -: HTN -: Cardiomyopathy/EF 40 to 45% -: PAD -: Bypass - Family History Father Family History: Reviewed- Non-Contributory - Social History Alcohol use: No CD- Drugs: No Caffeine use: Yes Place of Residence: Home Review of Systems 10-point ROS is otherwise unremarkable Physical Examination Temp Pulse Resp BP Pulse Ox 97.6 F 84 16 112/57 L 98 05/20/24 12:00 05/20/24 12:00 05/20/24 12:00 05/20/24 12:00 05/20/24 12:00 General: Alert, In no apparent distress HEENT: Atraumatic, PERRLA, Mucous membr. moist/pink, EOMI, Sclerae nonicteric Neck: Supple, 2+ carotid pulse no bruit, No LAD, Without JVD or thyroid abnormality Respiratory: Clear to auscultation bilaterally, Normal air movement Cardiovascular: Regular rate/rhythm, Normal S1 S2 Gastrointestinal: Normal bowel sounds, No tenderness Musculoskeletal: No tenderness Integumentary: No rashes Neurological: Normal gait, Normal speech, Normal tone, Normal affect Lymphatics: No axilla or inguinal lymphadenopathy - Problems (1) CARLOS (acute kidney injury) Current Visit: Yes Status: Acute Plan: most likely secondary to dehyrdation, agree with holding lasix and hydration at this time. (2) CHF (congestive heart failure) Current Visit: Yes Status: Acute Plan: looks euvolemic on exam hold on diuresis continue Toprol XL 25 mg daily Hold on Lisinopril (3) PAD (peripheral artery disease) Current Visit: Yes Status: Acute Plan: Patient with complex PAD, follow up with IR on Xarelto and Brilinta
[2024-05-20] MEDS: LEVALBUTEROL 1.25 MG/3 ML NEB NEB PRN (15:20)
[2024-05-20] MEDS: FUROSEMIDE 40 MG TABLET PO SCH (16:16)
--- NOTE | 2024-05-20 17:25 | P.PN ---
Date of Service: 05/20/24 Review of Systems 10-point ROS is otherwise unremarkable Physical Examination - Vital Signs reviewed - Physical Exam General: Alert, In no apparent distress, Oriented x3, Mild distress HEENT: Atraumatic, Normocephalic Neck: Supple, 2+ carotid pulse no bruit, JVD not distended, No Thyromegaly, No LAD Respiratory: Diminished, crackles to bases Cardiovascular: Regular rate/rhythm, Normal S1 S2, Abnormal pulses, Systolic murmur Gastrointestinal: Normal bowel sounds, Soft and benign, Distended Musculoskeletal: No clubbing, Swelling Integumentary: No rashes, pallor Neurological: Normal speech, Normal strength at 5/5 x4 extr, Sensation intact, Cranial nerves 3-12 intact Assessment & Plan - Problems (Diagnosis) (1) Dyspnea Current Visit: No Status: Acute (2) CARLOS (acute kidney injury) Current Visit: Yes Status: Acute (3) Prerenal azotemia Current Visit: Yes Status: Acute (4) Diarrhea Current Visit: Yes Status: Acute (5) CHF (congestive heart failure) Current Visit: Yes Status: Acute (6) TIA (transient ischemic attack) Current Visit: Yes Status: Acute (7) PAD (peripheral artery disease) Current Visit: Yes Status: Acute - Plan Plan: 1. Dyspnea on; most likely related to multifactorial etiology including patient with prerenal azotemia, diarrhea, dehydration, history of cardiomyopathy with an EF of 40 to 45%; questionable infiltrate mentioned on the x-ray; chest x-ray comparable to prior x-ray from a few days before. At that time there was no mention of an infiltrate. Both blood cultures and procalcitonin level pending. Will cover with broad-spectrum antibiotic for healthcare acquired pneumonia. Will gently hydrate patient as patient with significant prerenal azotemia. Will monitor her volume status closely. We did increase her diuretics prior to her discharging and I believe along with her diarrhea as she has been over diuresed. BNP elevated possibly related to multiple other etiologies as patient's blood pressure and diastolic function is elevated. Will monitor her volume status and repeat x-ray in the morning (05/20/22 shows bilat pleural effusions and mild volume overload), pt quite SOB with minimal exertion 2. Cardiomyopathy; patient with an EF of 40 to 45%. Monitor her volume status closely. Cardiology consultation. 05/20/24 (Dr. Mcdowell seeing pt) Currently patient appears to be over diuresed as she is in acute renal failure from what looks to be prerenal azotemia. Will back off on her diuretics for the short term and see how she response. Her ejection fraction is fairly adequate at 45%. 3. Persistent diarrhea; stools pending-C. difficile and cultures - Negative for C. diff 05/20/24 4. elevated troponins; continue with cardiac follow-up (05/20/24 probably related to cardiorenal - no chest pain) 5. anemia; continue monitoring H&H and check iron levels and B12 levels monitor renal function closely, Consulted nephrology. Dr. Hillman/Lianna consulting. Bicarb drip and Iron infusions begun yesterday. Pt and Dr. 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 Creatinine has increased since admission to 3.89 with a GFR of 11. Bicarb drip stopped at 1200. Dr. Dsouza ordered 40mg po lasix BID 6. Gi DVT prophylaxis 05/20/24 Pt upgraded to ICU. Dyspneic, crackles to bases. Will try 05/02 BiPap for her comfort. Discharge Plan: Home Plan to discharge in: Greater than 2 days - Advance Directives Does patient have a Living Will: No Does patient have a Durable POA for Healthcare: No - Code Status/Comfort Care Code Status Assessed: Yes Code Status: Full Code Critical Care: No Time Spent Managing PTS Care (In Minutes): 45 <Marva Leahy - Last Filed: 05/20/24 17:11> Pt seen and examined. I agree with the note by the SHEAR SETTER. Will resume lasix 40mg po BID and monitor renal function. Will monitor H/H. Nephrology is following <Evgeny Gibson - Last Filed: 05/21/24 22:15>
[2024-05-20 18:13] LABS: UR PROTEIN 152.3 mg/dL (<11.9)
[2024-05-20 18:51] LABS: UR MICROALBUMIN 34.3 mg/dL (< 1.9)
[2024-05-21 07:39] LABS: Absolute Basophils 0.1 K/uL (0-0.5); Absolute Eosinophils 0.5 K/uL (0-0.5); Absolute Lymphocytes (CBC) 1.4 K/uL (0.7-4.9); Absolute Monocytes 0.8 K/uL (0.1-1.3); Basophils % 0.9 % (0-1.3); Eosinophils % 4.3 % (0-4.4); Hematocrit 26.2 % (36.0-45.0); Hemoglobin 8.5 g/dL (12.0-15.0); Lymphocytes % 12.8 % (15.3-44.8); MCH 28.7 pg (27.0-35.0); MCHC 32.3 g/dL (32.0-36.0); MPV 9.4 fL (7.6-11.3); Monocytes % 7.1 % (3.3-12.3); Neutrophils % 74.9 % (41.7-73.7); Platelets 296 thou/uL (152-406); RBC Red Blood Cell Count 2.95 M/uL (3.86-4.86)
[2024-05-21 07:53] LABS: Albumin 2.6 g/dL (3.4-5.0); Anion Gap 12.2 mEq/L (5.0-15.0); Phosphorus 6.7 mg/dL (2.5-4.9); Potassium 4.2 mEq/L (3.5-5.1)
--- NOTE | 2024-05-21 11:32 | P.PN ---
Subjective Date of Service: 05/21/24 Chief Complaint: Shortness of breath; persistent diarrhea; CARLOS Subjective: No new changes, No C/O voiced, Tolerating diet, Ambulating, Improving Review of Systems 10-point ROS is otherwise unremarkable Physical Examination - Vital Signs Temperature: 97.8 F Blood Pressure: 124/72 Pulse: 80 Respirations: 21 Pulse Ox (%): 98 - Physical Exam General: Alert, In no apparent distress HEENT: Atraumatic, PERRLA, EOMI Neck: Supple, JVD not distended Respiratory: Clear to auscultation bilaterally, Normal air movement Cardiovascular: Regular rate/rhythm, Normal S1 S2 Gastrointestinal: Normal bowel sounds, No tenderness Musculoskeletal: No tenderness Integumentary: No rashes Neurological: Normal speech, Normal tone, Normal affect Lymphatics: No axilla or inguinal lymphadenopathy - Studies Medications List Reviewed: Yes Assessment And Plan - Current Problems (Diagnosis) (1) CARLSO (acute kidney injury) Current Visit: Yes Status: Acute Plan: most likely secondary to dehyrdation, Patient is on lasix 40 mg po BID, poor urine output and Creatinine trending up, might need to initiated on dialysis. (2) CHF (congestive heart failure) Current Visit: Yes Status: Acute Plan: looks euvolemic on exam continue Toprol XL 25 mg daily Hold on Lisinopril (3) PAD (peripheral artery disease) Current Visit: Yes Status: Acute Plan: Patient with complex PAD, follow up with IR on Xarelto and Brilinta
--- NOTE | 2024-05-21 13:57 | P.PN ---
Date of Service: 05/21/24 Review of Systems 10-point ROS is otherwise unremarkable Physical Examination - Vital Signs reviewed - Physical Exam General: Alert, In no apparent distress, Oriented x3, Mild distress HEENT: Atraumatic, Normocephalic Neck: Supple, 2+ carotid pulse no bruit, JVD not distended, No Thyromegaly, No LAD Respiratory: Diminished, crackles to bases Cardiovascular: Regular rate/rhythm, Normal S1 S2, Abnormal pulses, Systolic murmur Gastrointestinal: Normal bowel sounds, Soft and benign, Distended Musculoskeletal: No clubbing, Swelling Integumentary: No rashes, pallor Neurological: Normal speech, Normal strength at 5/5 x4 extr, Sensation intact, Cranial nerves 3-12 intact Assessment & Plan - Problems (Diagnosis) (1) Dyspnea Current Visit: No Status: Acute (2) CARLOS (acute kidney injury) Current Visit: Yes Status: Acute (3) Prerenal azotemia Current Visit: Yes Status: Acute (4) Diarrhea Current Visit: Yes Status: Acute (5) CHF (congestive heart failure) Current Visit: Yes Status: Acute (6) TIA (transient ischemic attack) Current Visit: Yes Status: Acute (7) PAD (peripheral artery disease) Current Visit: Yes Status: Acute - Plan Plan: 1. Dyspnea on; most likely related to multifactorial etiology including patient with prerenal azotemia, diarrhea, dehydration, history of cardiomyopathy with an EF of 40 to 45%; questionable infiltrate mentioned on the x-ray; chest x-ray comparable to prior x-ray from a few days before. At that time there was no mention of an infiltrate. Both blood cultures and procalcitonin level pending. Will cover with broad-spectrum antibiotic for healthcare acquired pneumonia. Will gently hydrate patient as patient with significant prerenal azotemia. Will monitor her volume status closely. We did increase her diuretics prior to her discharging and I believe along with her diarrhea as she has been over diuresed. BNP elevated possibly related to multiple other etiologies as patient's blood pressure and diastolic function is elevated. Will monitor her volume status and repeat x-ray in the morning (05/20/22 shows bilat pleural effusions and mild volume overload), pt quite SOB with minimal exertion 2. Cardiomyopathy; patient with an EF of 40 to 45%. Monitor her volume status closely. Cardiology consultation. 05/20/24 (Dr. Mcdowell seeing pt) Currently patient appears to be over diuresed as she is in acute renal failure from what looks to be prerenal azotemia. Will back off on her diuretics for the short term and see how she response. Her ejection fraction is fairly adequate at 45%. 3. Persistent diarrhea; stools pending-C. difficile and cultures - Negative for C. diff 05/20/24 4. elevated troponins; continue with cardiac follow-up (05/20/24 probably related to cardiorenal - no chest pain) 5. anemia; continue monitoring H&H and check iron levels and B12 levels monitor renal function closely, Consulted nephrology. Dr. Hillman/Lianna consulting. Bicarb drip and Iron infusions begun yesterday. Pt and Dr. Dsouza discussed short term VENDING MACHINE REPAIRER. Creatinine has increased since admission to 3.89 with a GFR of 11. Bicarb drip stopped at 1200. Dr. Dsouza ordered 40mg po lasix BID 6. Gi DVT prophylaxis 05/20/24 Pt upgraded to ICU. Dyspneic, crackles to bases. Will try 05/02 BiPap for her comfort. 05/21/24 Slept much better and less fitful with BiPap. Creatinine continues to worsening. Dr. Dsouza following for cardiorenal syndrome with Dr. Mcdowell NPO for dialysis cath today VENDING MACHINE REPAIRER per Nephrology Discharge Plan: Home Plan to discharge in: Greater than 2 days - Advance Directives Does patient have a Living Will: No Does patient have a Durable POA for Healthcare: No - Code Status/Comfort Care Code Status Assessed: Yes Code Status: Full Code Critical Care: No Time Spent Managing PTS Care (In Minutes): 35 <Marva Leahy - Last Filed: 05/21/24 13:57> Pt seen and examined. I agree with the note by the PULP MIXER. Pt is using BIPAP. Nephrology is following. Will place dialysis catheter for dialysis. No recent diarrhea. Continue home meds for other chronic medical problems. <Evgeny Gibson - Last Filed: 05/21/24 14:21>
[2024-05-21] MEDS: EPOETIN ALFA 10,000 UNIT/ML VIAL SQ ONE (13:58)
[2024-05-21] MEDS: Meropenem 500 MG in NA CHLORIDE 0.9% 100 ML IV SCH (17:21)
--- NOTE | 2024-05-21 17:46 | PN ---
Date of Progress Note: 05/21/2024 Subjective: The patient was admitted with acute kidney injury secondary to cardiorenal. The patient's kidney function continued to decline. Patient has overvolume, transferred to ICU, been on diuresis. The patient oliguric. Objective: Vital Signs: Blood pressure 117/81, pulse of 82, afebrile. Chest: Crackles, bilateral. Heart: S1, S2. Systolic murmur. Abdomen: Soft, nontender. Extremities: Trace edema. Neuro: Alert. No focality. No tremor. Laboratory Data: WBC 10.6, hemoglobin 8.5, sodium 137, potassium 4.2, bicarb 26, BUN 97, creatinine 4.8, GFR of 8, calcium 9.1, phosphorus 6.7. Current Medications: The patient on include breathing treatment, meropenem, Xarelto, Brilinta, metoprolol, Lyrica, and Lasix and insulin. Assessment And Plan: 1. Acute kidney injury secondary to cardiorenal, worsening kidney function. I had long discussion with the patient regarding the disease. The patient agreed on temporary dialysis. We will proceed. We will place tunneled hemodialysis catheter, consulted Surgery, planned for tomorrow, and we will follow up. 2. Hypertension. Continue utilize blood pressure for more diuresis. 3. Anemia of chronic kidney disease. I will give the patient single dose of MARTY, and we will follow up. Continue IV iron. 4. Congestive heart failure with exacerbation. We will optimize the fluid status. Continue diuresis. Plan for hemodialysis initiation. 5. Pneumonia. Continue current antibiotic. Time spent examining the patient [id number] reviewing data lab and the radiology placing order discussing the case with the patient/family member, discussing the case with the outreach team member including hospitalist and nursing staff more than 55 minutes RODRIGUEZ Voice ID: [id number] Report ID: [id number] MARGARET
[2024-05-22 06:28] LABS: Absolute Basophils 0.1 K/uL (0-0.5); Absolute Eosinophils 0.4 K/uL (0-0.5); Absolute Lymphocytes (CBC) 1.7 K/uL (0.7-4.9); Absolute Monocytes 0.8 K/uL (0.1-1.3); Absolute Neutrophil 8.2 K/uL (1.8-8.0); Basophils % 1.1 % (0-1.3); Eosinophils % 3.6 % (0-4.4); Hematocrit 28.8 % (36.0-45.0); Hemoglobin 9.7 g/dL (12.0-15.0); Lymphocytes % 14.8 % (15.3-44.8); MCH 29.4 pg (27.0-35.0); MCHC 33.8 g/dL (32.0-36.0); MPV 8.9 fL (7.6-11.3); Monocytes % 7.3 % (3.3-12.3); Neutrophils % 73.2 % (41.7-73.7); Platelets 337 thou/uL (152-406); RBC Red Blood Cell Count 3.31 M/uL (3.86-4.86); Red Cell Distribution Width 15.1 % (12.1-15.2)
[2024-05-22 06:52] LABS: Albumin 2.6 g/dL (3.4-5.0); Anion Gap 14.1 mEq/L (5.0-15.0); Phosphorus 7.1 mg/dL (2.5-4.9); Potassium 4.1 mEq/L (3.5-5.1)
--- NOTE | 2024-05-22 08:00 | P.PN ---
Date of Service: 05/22/24 Review of Systems 10-point ROS is otherwise unremarkable Physical Examination - Vital Signs reviewed - Physical Exam General: Alert, In no apparent distress, Oriented x3, Mild distress HEENT: Atraumatic, Normocephalic Neck: Supple, 2+ carotid pulse no bruit, JVD not distended, No Thyromegaly, No LAD Respiratory: Diminished, crackles to bases Cardiovascular: Regular rate/rhythm, Normal S1 S2, Abnormal pulses, Systolic murmur Gastrointestinal: Normal bowel sounds, Soft and benign, Distended Musculoskeletal: No clubbing, Swelling Integumentary: No rashes, pallor Neurological: Normal speech, Normal strength at 5/5 x4 extr, Sensation intact, Cranial nerves 3-12 intact Assessment & Plan - Problems (Diagnosis) (1) Dyspnea Current Visit: No Status: Acute (2) CARLOS (acute kidney injury) Current Visit: Yes Status: Acute (3) Prerenal azotemia Current Visit: Yes Status: Acute (4) Diarrhea Current Visit: Yes Status: Acute (5) CHF (congestive heart failure) Current Visit: Yes Status: Acute (6) TIA (transient ischemic attack) Current Visit: Yes Status: Acute (7) PAD (peripheral artery disease) Current Visit: Yes Status: Acute - Plan Plan: 1. Dyspnea on; most likely related to multifactorial etiology including patient with prerenal azotemia, diarrhea, dehydration, history of cardiomyopathy with an EF of 40 to 45%; questionable infiltrate mentioned on the x-ray; chest x-ray comparable to prior x-ray from a few days before. At that time there was no mention of an infiltrate. Both blood cultures and procalcitonin level pending. Will cover with broad-spectrum antibiotic for healthcare acquired pneumonia. Will gently hydrate patient as patient with significant prerenal azotemia. Will monitor her volume status closely. We did increase her diuretics prior to her discharging and I believe along with her diarrhea as she has been over diuresed. BNP elevated possibly related to multiple other etiologies as patient's blood pressure and diastolic function is elevated. Will monitor her volume status and repeat x-ray in the morning (05/20/22 shows bilat pleural effusions and mild volume overload), pt quite SOB with minimal exertion 2. Cardiomyopathy; patient with an EF of 40 to 45%. Monitor her volume status closely. Cardiology consultation. 05/20/24 (Dr. Mcdowell seeing pt) Currently patient appears to be over diuresed as she is in acute renal failure from what looks to be prerenal azotemia. Will back off on her diuretics for the short term and see how she response. Her ejection fraction is fairly adequate at 45%. 3. Persistent diarrhea; stools pending-C. difficile and cultures - Negative for C. diff 05/20/24 4. elevated troponins; continue with cardiac follow-up (05/20/24 probably related to cardiorenal - no chest pain) 5. anemia; continue monitoring H&H and check iron levels and B12 levels monitor renal function closely, Consulted nephrology. Dr. Hillman/Lianna consulting. Bicarb drip and Iron infusions begun yesterday. Pt and Dr. Dsouza discussed short term MAIN GALLEY SCULLION. Creatinine has increased since admission to 3.89 with a GFR of 11. Bicarb drip stopped at 1200. Dr. Dsouza ordered 40mg po lasix BID 6. Gi DVT prophylaxis 05/20/24 Pt upgraded to ICU. Dyspneic, crackles to bases. Will try 05/02 BiPap for her comfort. 05/21/24 Slept much better and less fitful with BiPap. Creatinine continues to worsening. Dr. Dsouza following for cardiorenal syndrome with Dr. Mcdowell NPO for dialysis cath today, allowed renal diet - dialysis cath tomorrow MAIN GAL[employer] SCULLION per Nephrology 05/22/24 scheduled for dialysis cath today consent on chart for Dr. Alvarado [employer] SCULLION per Dr. Dsouza pt sleeping comfortably all night on BiPap carrera with scant, clear urine Creatinine 3.42->3.72->3.81->4.86->5.16 with GFR 8 Discharge Plan: Home Plan to discharge in: Greater than 2 days - Advance Directives Does patient have a Living Will: No Does patient have a Durable POA for Healthcare: No - Code Status/Comfort Care Code Status Assessed: Yes Code Status: Full Code Critical Care: No Time Spent Managing PTS Care (In Minutes): 35 <Marva Leahy - Last Filed: 05/22/24 07:56> Pt seen and examined. I agree with the note by the BANKING SERVICES OFFICER. Pt is resting comfortably in bed. She is scheduled to have dialysis catheter today. Cr is 5.16. She used BIPAP last night. Will continue home meds for other chronic medical problems. <Evgeny Gibson - Last Filed: 05/22/24 10:31>
[2024-05-22] MEDS: NA CHLORIDE 0.9% 500 ML ONE (08:50)
[2024-05-22] MEDS: NS 0.9% VIAL 10 ML ONE (09:18)
[2024-05-22] MEDS: NA CHLORIDE 0.9% 100 ML ONE (09:19)
[2024-05-22] MEDS: HEPARIN 5000 UNIT/ML 1 ML VIAL ONE (09:19)
--- NOTE | 2024-05-22 09:28 | P.CNS ---
Date of Consult: 05/22/24 Reason for consult: Needs hemodialysis History of present illness: Patient is a 84-year-old female with multiple medical problems who admitted with fluid overload and acute kidney injury. She requires dialysis. I was asked to place a tunneled catheter for dialysis. Patient is awake, alert and denies any fever or chills at this time. Patient is also being treated for pneumonia at this time. Patient denies any sore throat, runny nose, cough, headaches, dizziness, chest pain, fever or chills. Review of systems: Otherwise unremarkable Past medical history: Hypertension, diabetes, cardiomyopathy with ejection fraction of 40 to 45% and coronary artery disease Past surgical history: CABG Allergies: None Social history: Does not smoke or drink Family history: Noncontributory Vital signs: Stable, afebrile Physical exam: Awake, alert and oriented x 3 Head and neck exam: No masses Chest: Clear Heart: S1-S2 Abdomen: Soft Extremity: Neurovascular intact Neuro: Nonfocal Diagnostic data: Reviewed, patient has uremia consistent with acute renal failure Assessment: Acute renal failure Plan/recommendation: Placement of tunneled catheter for dialysis. Patient understands risk, benefits and alternatives and agrees to procedure. CC:
[2024-05-22] MEDS ORDERED: propofoL 200 MG/20 ML VIAL IV ONE ×2 (09:51→10:29)
[2024-05-22] MEDS ORDERED: LIDOCAINE 2% MPF 5 ML VIAL ONE (09:51)
[2024-05-22] MEDS ORDERED: ONDANSETRON 4 MG/2 ML VIAL ONE (09:51)
[2024-05-22] MEDS ORDERED: FENTANYL CITR 100 MCG/2 ML ONE (09:51)
[2024-05-22] MEDS ORDERED: EPHEDRINE SULF 50 MG/ML VIAL ONE (10:22)
[2024-05-22] MEDS ORDERED: dexAMETHasone 10 MG/ML VIAL ONE (10:27)
[2024-05-22] MEDS: CEFAZOLIN SODIUM 2 GM/VIAL ONE (10:29)
[2024-05-22] MEDS ORDERED: Mastisol Adhesive Liq ONE (10:57)
--- NOTE | 2024-05-22 11:03 | P.OP ---
Date of Service: 05/22/24 Preop diagnosis: Acute renal failure Postop diagnosis: Same Procedure performed: Placement of right IJ tunneled dialysis catheter, int erpretation of fluoroscopy and ultrasound Surgeon: Micky Alvarado MD Agricultural Service Worker: None Estimated blood loss: Minimal Specimen: None Findings: Normal anatomy Anesthesia: General Complications: None Drains: None Fluids and blood products: Nonapplicable Disposition: Recovery room Operative note: Patient brought to the OR and placed in supine position. General anesthesia began. Patient prepped and draped in the usual sterile fashion. Lidocaine 1%. Locally. Ultrasound device used to identify the right IJ vein in the right neck. 18-gauge needle used to access the right IJ vein. Guidewire passed. Position confirmed with fluoroscopy. Counterincision made on the right anterior chest. Tunneling device used to tunnel the catheter between the 2 wounds. Seldinger technique used and tip of the catheter placed in the distal SVC. Fluoroscopy confirmed placement. Catheter flushed with heparin and packed with heparin with good blood flow. 3-0 chromic used to reapproximate subcutaneous tissue and close skin. Urinalysis secured the catheter to the chest wall. Sterile dressing applied. Patient awakened and taken to recovery room in good general condition. CC:
--- NOTE | 2024-05-22 11:41 | RAD REPORT ---
EXAMINATION: ONE VIEW CHEST XR CLINICAL INDICATION: Female, 84 years old.,Status post tunneled dialysis catheter placement TECHNIQUE: Frontal chest projection is submitted. Examination is limited by patient positioning and t echnique. COMPARISON: 05/20/2024 FINDINGS: The lungs are well inflated. Bilateral hazy airspace opacities, predominantly central and basilar. Ri ght arm PICC unchanged in position. Right IJ dialysis catheter has been placed, with distal tip projecting at the level of the superior cavoatrial junction. Small bilateral pleural effusions, stabl e. No pneumothorax. The heart is normal in size. IMPRESSION: Satisfactory positioning of right IJ hemodialysis catheter. Otherwise stable findings which may reflect a degree of pulmonary edema.
--- NOTE | 2024-05-22 11:42 | RAD REPORT ---
EXAM: Fluoroscopy use, Fluoroscopy <1 Hour HISTORY: [facility] MAIN HD CATH PLACEMENT COMPARISON: None FINDINGS: A total of 2 images were sent to PACS, during a fluoroscopically guided hemodialysis cathet er placement. No radiologist was involved in protocoling or performance of the study, and no radiologist was present for the duration of the procedure. No interpretation of the saved images will be provided. Total fluoroscopy time: Less than 0.1 minute. IMPRESSION: Documentation of fluoroscopy use as above.
--- NOTE | 2024-05-22 12:52 | P.PN ---
Date of Service: 05/22/24 Review of Systems 10-point ROS is otherwise unremarkable Physical Examination - Vital Signs reviewed - Physical Exam General: Alert, In no apparent distress, Oriented x3, Mild distress, Bipap helps her rest HEENT: Atraumatic, Normocephalic Neck: Supple, 2+ carotid pulse no bruit, JVD not distended, No Thyromegaly, No LAD Respiratory: Diminished, crackles to bases Cardiovascular: Regular rate/rhythm, Normal S1 S2, Abnormal pulses to lower ext, Systolic murmur Gastrointestinal: Normal bowel sounds, Soft and benign Musculoskeletal: No clubbing, Swelling Integumentary: No rashes, pallor Neurological: Normal speech, Normal strength at 5/5 x4 extr, Sensation intact, Cranial nerves 3-12 intact Assessment & Plan - Problems (Diagnosis) (1) Dyspnea Current Visit: No Status: Acute (2) CARLOS (acute kidney injury) Current Visit: Yes Status: Acute (3) Prerenal azotemia Current Visit: Yes Status: Acute (4) Diarrhea Current Visit: Yes Status: Acute (5) CHF (congestive heart failure) Current Visit: Yes Status: Acute (6) TIA (transient ischemic attack) Current Visit: Yes Status: Acute (7) PAD (peripheral artery disease) Current Visit: Yes Status: Acute - Plan Plan: 1. Dyspnea on; most likely related to multifactorial etiology including patient with prerenal azotemia, diarrhea, dehydration, history of cardiomyopathy with an EF of 40 to 45%; questionable infiltrate mentioned on the x-ray; chest x-ray comparable to prior x-ray from a few days before. At that time there was no mention of an infiltrate. Both blood cultures and procalcitonin level pending. Will cover with broad-spectrum antibiotic for healthcare acquired pneumonia. Will gently hydrate patient as patient with significant prerenal azotemia. Will monitor her volume status closely. We did increase her diuretics prior to her discharging and I believe along with her diarrhea as she has been over diuresed. BNP elevated possibly related to multiple other etiologies as patient's blood pressure and diastolic function is elevated. Will monitor her volume status and repeat x-ray in the morning (05/20/22 shows bilat pleural effusions and mild volume overload), pt quite SOB with minimal exertion 2. Cardiomyopathy; patient with an EF of 40 to 45%. Monitor her volume status closely. Cardiology consultation. 05/20/24 (Dr. Mcdowell seeing pt) Currently patient appears to be over diuresed as she is in acute renal failure from what looks to be prerenal azotemia. Will back off on her diuretics for the short term and see how she response. Her ejection fraction is fairly adequate at 45%. 3. Persistent diarrhea; stools pending-C. difficile and cultures - Negative for C. diff 05/20/24 4. elevated troponins; continue with cardiac follow-up (05/20/24 probably related to cardiorenal - no chest pain) 5. anemia; continue monitoring H&H and check iron levels and B12 levels monitor renal function closely, Consulted nephrology. Dr. Hillman/Lianna consulting. Bicarb drip and Iron infusions begun yesterday. Pt and Dr. Dsouza discussed short term HOME CARE SCHEDULER. Creatinine has increased since admission to 3.89 with a GFR of 11. Bicarb drip stopped at 1200. Dr. Dsouza ordered 40mg po lasix BID 6. Gi DVT prophylaxis 05/20/24 Pt upgraded to ICU. Dyspneic, crackles to bases. Will try 05/02 BiPap for her comfort. 05/21/24 Slept much better and less fitful with BiPap. Creatinine continues to worsening. Dr. Dsouza following for cardiorenal syndrome with Dr. Mcdowell NPO for dialysis cath today, allowed renal diet - dialysis cath tomorrow HOME CARE SCHEDULER per Nephrology 05/22/24 scheduled for dialysis cath today consent on chart for Dr. Alvarado HOME CARE SCHEDULER per Dr. Dsouza pt sleeping comfortably all night on BiPap carrera with scant, clear urine Creatinine 3.42->3.72->3.81->4.86->5.16 with GFR 8 1200 - right tunneled dialysis cath placed per Dr. Alvarado. pt returned to room groggy but comfortable, conversant, stable Discharge Plan: Home Plan to discharge in: Greater than 2 days - Advance Directives Does patient have a Living Will: No Does patient have a Durable POA for Healthcare: No - Code Status/Comfort Care Code Status Assessed: Yes Code Status: Full Code Critical Care: No Time Spent Managing PTS Care (In Minutes): 35 <Marva Leahy - Last Filed: 05/22/24 12:49> Pt seen and examined. I agree with the note by the LABOR TRAINER. Pt is resting comfortably in bed. She is scheduled to have dialysis catheter today. Dr. Alvarado placed a right tunneled dialysis catheter. Cr is 5.16. She used BIPAP last night. Will continue home meds for other chronic medical problems. <Evgeny Gibson - Last Filed: 05/22/24 17:50>
[2024-05-22] MEDS: MANNITOL 25% 12.5 GM/50 ML VIAL IV PRN (15:45)
[2024-05-22 17:06] LABS: Hepatitis B surface AG Interp. Nonreactive (Nonreactive)
[2024-05-22 17:07] LABS: HBsAG Nonreactive Report Report
[2024-05-22 17:39] LABS: Hepatitis B Core Ab, Total Nonreactive (Nonreactive)
[2024-05-22 17:40] LABS: Hepatitis B Surface Ab - Quant < 3.10 mIU/mL (<8.0)
[2024-05-22] MEDS: INSULIN REGULAR (HUMAN) 100 UNIT/ML SQ SCH (17:55)
[2024-05-22] MEDS ORDERED: D10W 125 ML IV PRN (18:06)
--- NOTE | 2024-05-22 22:10 | PN ---
Date of Progress Note: 05/22/2024 Chief Complaint: Acute on chronic kidney injury. Subjective: The patient has cardiorenal syndrome, fluid overload. Renal function has not improved. The patient did not respond to diuretics. She remains fluid overloaded. She has peripheral edema. She is admitted to ICU and she received diuretics when in ICU for fluid overload. She remains oligu molly. Review of Systems: Denies chest pain, palpitation. She has some shortness of breath with activities. She is bed-bound. Objective: Vital Signs: Blood pressure 117/81, heart rate 82. Chest: Crackles bilaterally. Heart: S1, S2. 2/6 systolic murmur, left lower sternal border. Abdomen: Soft, benign. Extremities: Edema present in both legs. Laboratory Studies: BUN 97, creatinine 4.8, calcium 9.1. Phosphorus 6.7. Hemoglobin 8.5. Sodium 1 37. Potassium 4.2. Impression And Plan: 1.Acute kidney injury secondary to cardiorenal syndrome. Renal function has declined. The patient did not respond to diuretics. She remains fluid overloaded and she has hyperazotemia. Continue mushtaq l diet with low-potassium diet. Patient will have tunneled dialysis catheter placed today and hemodi alysis will be started for acute on chronic kidney injury. 2.Anemia of chronic disease. The patient received MARTY. Continue IV iron for anemia due to chronic kidney disease with iron deficiency. 3.Congestive heart failure with exacerbation. Continue low-sodium diet. Monitor blood pressure. O ptimize volemia status with dialysis. Continue diuretics as tolerated. 4.Pneumonia. Continue antibiotics. 5.Hypertension. Continue current blood pressure medication. EB/MODL Voice ID: [id number] Report ID: [id number]
[2024-05-23 03:39] LABS: C-ANCA Anti-Proteinase 3 <1.0 AI (<1.0); P-ANCA Anti-Myeloperoxidase Ab <1.0 AI (<1.0)
[2024-05-23 05:56] LABS: Absolute Basophils 0.1 K/uL (0-0.5); Absolute Lymphocytes (CBC) 0.9 K/uL (0.7-4.9); Absolute Monocytes 1.1 K/uL (0.1-1.3); Basophils % 0.8 % (0-1.3); Eosinophils % 0.4 % (0-4.4); Hematocrit 27.1 % (36.0-45.0); Hemoglobin 9.1 g/dL (12.0-15.0); Lymphocytes % 9.4 % (15.3-44.8); MCH 29.5 pg (27.0-35.0); MCHC 33.6 g/dL (32.0-36.0); MCV 87.9 fL (80-100); MPV 8.7 fL (7.6-11.3); Neutrophils % 77.4 % (41.7-73.7); Nucleated Red Blood Cells % 0.2 % (0-0); Platelets 303 thou/uL (152-406); RBC Red Blood Cell Count 3.08 M/uL (3.86-4.86); Red Cell Distribution Width 15.2 % (12.1-15.2)
[2024-05-23 06:04] LABS: Albumin 2.4 g/dL (3.4-5.0); Albumin/Globulin Ratio 0.6 (1.1-1.8); Anion Gap 12.7 mEq/L (5.0-15.0); Bilirubin Total 0.3 mg/dL (0.2-1.0); Globulin 4.1 g/dL (2.3-3.5); Phosphorus 5.9 mg/dL (2.5-4.9); Potassium 4.7 mEq/L (3.5-5.1); Protein, Total 6.5 g/dL (6.4-8.2)
[2024-05-23] MEDS: SEVELAMER CARBONATE 800 MG TABLET PO SCH (08:34)
--- NOTE | 2024-05-23 11:37 | P.PN ---
Date of Service: 05/23/24 Review of Systems 10-point ROS is otherwise unremarkable Physical Examination - Vital Signs reviewed - Physical Exam General: Alert, In no apparent distress, Oriented x3, Mild distress, Bipap helps her rest HEENT: Atraumatic, Normocephalic Neck: Supple, 2+ carotid pulse no bruit, JVD not distended, No Thyromegaly, No LAD Respiratory: Diminished, crackles to bases Cardiovascular: Regular rate/rhythm, Normal S1 S2, Abnormal pulses to lower ext, Systolic murmur Gastrointestinal: Normal bowel sounds, Soft and benign Musculoskeletal: No clubbing, Swelling Integumentary: No rashes, pallor Neurological: Normal speech, Normal strength at 5/5 x4 extr, Sensation intact, Cranial nerves 3-12 intact Assessment & Plan - Problems (Diagnosis) (1) Dyspnea Current Visit: No Status: Acute (2) CARLOS (acute kidney injury) Current Visit: Yes Status: Acute (3) Prerenal azotemia Current Visit: Yes Status: Acute (4) Diarrhea Current Visit: Yes Status: Acute (5) CHF (congestive heart failure) Current Visit: Yes Status: Acute (6) TIA (transient ischemic attack) Current Visit: Yes Status: Acute (7) PAD (peripheral artery disease) Current Visit: Yes Status: Acute - Plan Plan: 1. Dyspnea on; most likely related to multifactorial etiology including patient with prerenal azotemia, diarrhea, dehydration, history of cardiomyopathy with an EF of 40 to 45%; questionable infiltrate mentioned on the x-ray; chest x-ray comparable to prior x-ray from a few days before. At that time there was no mention of an infiltrate. Both blood cultures and procalcitonin level pending. Will cover with broad-spectrum antibiotic for healthcare acquired pneumonia. Will gently hydrate patient as patient with significant prerenal azotemia. Will monitor her volume status closely. We did increase her diuretics prior to her discharging and I believe along with her diarrhea as she has been over diuresed. BNP elevated possibly related to multiple other etiologies as patient's blood pressure and diastolic function is elevated. Will monitor her volume status and repeat x-ray in the morning (05/20/22 shows bilat pleural effusions and mild volume overload), pt quite SOB with minimal exertion 2. Cardiomyopathy; patient with an EF of 40 to 45%. Monitor her volume status closely. Cardiology consultation. 05/20/24 (Dr. Mcdowell seeing pt) Currently patient appears to be over diuresed as she is in acute renal failure from what looks to be prerenal azotemia. Will back off on her diuretics for the short term and see how she response. Her ejection fraction is fairly adequate at 45%. 3. Persistent diarrhea; stools pending-C. difficile and cultures - Negative for C. diff 05/20/24 4. elevated troponins; continue with cardiac follow-up (05/20/24 probably related to cardiorenal - no chest pain) 5. anemia; continue monitoring H&H and check iron levels and B12 levels monitor renal function closely, Consulted nephrology. Dr. Hillman/Lianna consulting. Bicarb drip and Iron infusions begun yesterday. Pt and Dr. Dsouza discussed short term GRINDING AND SPRAYING SUPERVISOR. Creatinine has increased since admission to 3.89 with a GFR of 11. Bicarb drip stopped at 1200. Dr. Dsouza ordered 40mg po lasix BID 6. Gi DVT prophylaxis 05/20/24 Pt upgraded to ICU. Dyspneic, crackles to bases. Will try 05/02 BiPap for her comfort. 05/21/24 Slept much better and less fitful with BiPap. Creatinine continues to worsening. Dr. Dsouza following for cardiorenal syndrome with Dr. Mcdowell NPO for dialysis cath today, allowed renal diet - dialysis cath tomorrow GRINDING AND SPRAYING SUPERVISOR per Nephrology 05/22/24 scheduled for dialysis cath today consent on chart for Dr. Alvarado GRINDING AND SPRAYING SUPERVISOR per Dr. Dsouza pt sleeping comfortably all night on BiPap carrera with scant, clear urine Creatinine 3.42->3.72->3.81->4.86->5.16 with GFR 8 1200 - right tunneled dialysis cath placed per Dr. Alvarado. pt returned to room groggy but comfortable, conversant, stable 05/23/24 300ml removed with first dialysis yesterday afternoon. Pt tolerated well, + lunch with family at bedside post dialysis. This am, pt awake, alert. Would like a BNP drawn and her left foot re-evaluated with x-ray. No edema, used BiPap last pm but on 2L O2 via N/C now at 100% this am creatinine 4.61 and GFR 9, 300ml clear yellow urine outpt per carrera overnight Discharge Plan: Home Plan to discharge in: Greater than 2 days - Advance Directives Does patient have a Living Will: No Does patient have a Durable POA for Healthcare: No - Code Status/Comfort Care Code Status Assessed: Yes Code Status: Full Code Critical Care: No Time Spent Managing PTS Care (In Minutes): 35 <Marva Leahy - Last Filed: 05/23/24 11:31> Subjective Patient is clinically doing well at this time. She is starting to feel better. Physical Examination - Vital Signs reviewed - Physical Exam General: Alert, In no apparent distress, Oriented x3, Mild distress, Bipap helps her rest Respiratory: Diminished, crackles to bases Cardiovascular: Regular rate/rhythm, Normal S1 S2, Abnormal pulses to lower ext, Systolic murmur Gastrointestinal: Normal bowel sounds, Soft and benign Musculoskeletal: No clubbing, Swelling Integumentary: No rashes, pallor Neurological: No focal deficits Assessment & Plan - Problems (Diagnosis) (1) Dyspnea Current Visit: No Status: Acute (2) CARLOS (acute kidney injury) Current Visit: Yes Status: Acute (3) Prerenal azotemia Current Visit: Yes Status: Acute (4) Diarrhea Current Visit: Yes Status: Acute (5) CHF (congestive heart failure) Current Visit: Yes Status: Acute (6) TIA (transient ischemic attack) Current Visit: Yes Status: Acute (7) PAD (peripheral artery disease) Current Visit: Yes Status: Acute - Plan Plan: 1. Dyspnea; most likely related to multifactorial etiology including patient with prerenal azotemia, diarrhea, dehydration, history of cardiomyopathy with an EF of 40 to 45%; questionable infiltrate mentioned on the x-ray; chest x-ray comparable to prior x-ray from a few days before. At that time there was no mention of an infiltrate. Both blood cultures and procalcitonin level pending. Will cover with broad-spectrum antibiotic for healthcare acquired pneumonia. Will gently hydrate patient as patient with significant prerenal azotemia. Will monitor her volume status closely. We did increase her diuretics prior to her discharging and I believe along with her diarrhea as she has been over diuresed. BNP elevated possibly related to multiple other etiologies as patient's blood pressure and diastolic function is elevated. Will monitor her volume status and repeat x-ray in the morning 2. Cardiomyopathy; patient with an EF of 40 to 45%. Monitor her volume status closely. Cardiology consultation. 05/20/24 (Dr. Mcdowell seeing pt) Currently patient appears to be over diuresed as she is in acute renal failure from what looks to be prerenal azotemia. Will back off on her diuretics for the short term and see how she response. Her ejection fraction is fairly adequate at 45%. 3. Persistent diarrhea; stools pending-C. difficile and cultures - Negative for C. diff 05/20/24 4. elevated troponins; continue with cardiac follow-up (05/20/24 probably related to cardiorenal - no chest pain) 5. anemia; continue monitoring H&H and check iron levels and B12 levels monitor renal function closely, Consulted nephrology. Dr. Hillman/Lianna consulting. Bicarb drip and Iron infusions begun yesterday. Pt and Dr. Dsouza discussed short term GRINDING AND SPRAYING SUPERVISOR. Creatinine has increased since admission to 3.89 with a GFR of 11. Bicarb drip stopped at 1200. Dr. Dsouza ordered 40mg po lasix BID; afterwards creatinine increased substantially 6. Gi DVT prophylaxis 05/20/24 Pt upgraded to ICU. Dyspneic, crackles to bases. Will try 05/02 BiPap for her comfort. 05/21/24 Slept much better and less fitful with BiPap. Creatinine continues to worsening. Dr. Dsouza following for cardiorenal syndrome with Dr. Mcdowell NPO for dialysis cath today, allowed renal diet - dialysis cath tomorrow GRINDING AND SPRAYING SUPERVISOR per Nephrology 05/22/24 scheduled for dialysis cath today consent on chart for Dr. Alvarado GRINDING AND SPRAYING SUPERVISOR per Dr. Dsouza pt sleeping comfortably all night on BiPap carrera with scant, clear urine Creatinine 3.42->3.72->3.81->4.86->5.16 with GFR 8 1200 - right tunneled dialysis cath placed per Dr. Alvarado. pt returned to room groggy but comfortable, conversant, stable 05/23/24 300ml removed with first dialysis yesterday afternoon. Pt tolerated well, + lunch with family at bedside post dialysis. This am, pt awake, alert. Would like a BNP drawn and her left foot re-evaluated with x-ray. No edema, used BiPap last pm but on 2L O2 via N/C now at 100% this am creatinine 4.61 and GFR 9, 300ml clear yellow urine outpt per carrera overnight Discharge Plan: Home Plan to discharge in: Greater than 2 days - Advance Directives Does patient have a Living Will: No Does patient have a Durable POA for Healthcare: No - Code Status/Comfort Care Code Status Assessed: Yes Code Status: Full Code Critical Care: No Time Spent Managing PTS Care (In Minutes): 35Patient was seen and examined. Events of the last 24 hours have been noted. Spoke with with ABELARDO regarding patient's clinical picture after evaluating and examining the patient independently. I performed a substantial part of the MDM during this patient's care today. I personally made or approved the documented management plan and acknowledge its risk of complications. I agree with the findings and documentation provided in the ABELARDO's notes. Patient is clinically feeling well after dialysis. She does not want to do this long-term. Patient's acute renal failure secondary to multifactorial etiology. Patient presented with CARLOS and prerenal azotemia. It was also felt that patient may have CRS. Patient was on increased dose of diuretics at discharge last week because of the new diagnosis of heart failure with an ejection fraction of 40 to 45%. The increased dosing of diuretics appears to have precipitated patient's initial CARLOS. Patient was hydrated and renal function was plateauing. As the possibility of CRS, it was felt that diuresing may be beneficial; however, lizbeth ent's renal function has worsened. Temporary dialysis was initiated in the hope that renal function will improve once kidneys start functioning. Urine output is starting to increase. Will monitor closely. <Alondra Bowers - Last Filed: 05/23/24 16:55>
[2024-05-23] MEDS: SOD FERRIC GLUC COMPLX/SUCROSE 250 MG in NA CHLORIDE 0.9% 250 ML IV SCH (12:18)
[2024-05-23] MEDS: ALBUMIN HUMAN 25% 100 ML IV ONE (17:16)
[2024-05-23] MEDS: ALBUMIN HUMAN 25% 50 ML IV ONE (18:04)
--- NOTE | 2024-05-23 20:21 | PN ---
Date of Progress Note: 05/23/2024 Chief Complaint: Acute on chronic kidney injury. History Of Present Illness: The patient has cardiorenal syndrome, fluid overload, renal function has not improved. Urine output is fluctuating today. She is oliguric. She is to have second session o f hemodialysis. She underwent tunneled dialysis catheter for acute kidney injury. She has underlyin g chronic kidney disease stage 3, developed cardiorenal syndrome and is dialysis dependent. Review of Systems: The patient denies chest pain, palpitations. Physical Examination: Lungs: Clear to auscultation bilaterally. Heart: S1, S2. Abdomen: Soft. Extremities: Minimal edema. Impression And Plan: 1.Acute kidney injury secondary to cardiorenal syndrome. Renal function has declined and patient re deisy dialysis dependent. There is no evidence of renal function recovery. Continue renal diet with low-potassium diet. Monitor renal panel daily. The patient will have second session of hemodialysi s today. Monitor blood pressure during dialysis. 2.Anemia of chronic disease. The patient received MARTY. Continue IV iron. Monitor iron status. 3.Congestive heart failure with exacerbation. Continue low-sodium diet. Monitor blood pressure and optimize volemia status with dialysis. 4.Pneumonia. Continue antibiotics. 5.Hypertension. Continue current blood pressure medication. EB/MODL Voice ID: [id number] Report ID: [id number]
[2024-05-24 06:03] LABS: Absolute Basophils 0.1 K/uL (0-0.5); Absolute Eosinophils 0.4 K/uL (0-0.5); Absolute Lymphocytes (CBC) 1.6 K/uL (0.7-4.9); Absolute Monocytes 1.1 K/uL (0.1-1.3); Absolute Neutrophil 7.9 K/uL (1.8-8.0); Basophils % 1.1 % (0-1.3); Eosinophils % 3.4 % (0-4.4); Hemoglobin 8.5 g/dL (12.0-15.0); Lymphocytes % 14.1 % (15.3-44.8); MCH 29.2 pg (27.0-35.0); MCHC 32.8 g/dL (32.0-36.0); MCV 88.9 fL (80-100); MPV 8.3 fL (7.6-11.3); Monocytes % 9.6 % (3.3-12.3); Neutrophils % 71.8 % (41.7-73.7); Nucleated Red Blood Cells % 0.2 % (0-0); Platelets 210 thou/uL (152-406); RBC Red Blood Cell Count 2.93 M/uL (3.86-4.86); Red Cell Distribution Width 15.2 % (12.1-15.2)
[2024-05-24 06:22] LABS: AST/SGOT 12 U/L (15-37); Albumin 2.8 g/dL (3.4-5.0); Albumin/Globulin Ratio 0.8 (1.1-1.8); Alkaline Phosphatase 81 U/L (45-117); BUN Blood Urea Nitrogen 41 mg/dL (7-18); Bicarbonate 28 mEq/L (21-32); Bilirubin Total 0.3 mg/dL (0.2-1.0); C-Reactive Protein 4.72 mg/L (<3.00); Globulin 3.7 g/dL (2.3-3.5); Glomerular Filtration Rate 12 ml/min (=/>90); Glucose Level 284 mg/dL (74-106); Magnesium 2.2 mg/dL (1.6-2.4); NT PRO-BNP 25339 pg/mL (<450); Phosphorus 4.1 mg/dL (2.5-4.9); Protein, Total 6.5 g/dL (6.4-8.2); Sodium Level 138 mEq/L (136-145)
[2024-05-24 06:23] LABS: ALT/SGPT < 14 U/L (13-56)
--- NOTE | 2024-05-24 09:03 | RAD REPORT ---
EXAMINATION: XR LEFT FOOT CLINICAL INDICATION: osteomyelitis TECHNIQUE: Multiple projections of the left foot were obtained. COMPARISON: 03/27/2024 FINDINGS: Multi joint degenerative arthritic changes are present involving the tarsometatarsal joints as well as the interphalangeal joints of the toes. Soft tissue swelling is noted of the third toe. There is slight irregular bony resorption seen distal phalanx of the third toe. This is suspicious fo r osteomyelitis. MRI could be performed of the report for confirmation.
--- NOTE | 2024-05-24 09:42 | RAD REPORT ---
EXAMINATION: Abdomen Wo Contrast CLINICAL INDICATION: Female, 84 years old. CARLOS TECHNIQUE: CT abdomen was performed, without IV contrast, as per department protocol. Axial, sagittal and coronal reconstructions were obtained. One or more of the following dose reduction techniques were used: Automated exposure control, adjustment of the mA and kV according to the patient size, and iterative reconstruction. Unless otherwise specified, incidental findings do not require dedicated imaging follow-up. COMPARISON: No prior exam. FINDINGS: The lack of intravenous contrast limits the sensitivity of this exam for evaluation of solid visceral organs, vascular structures, and retroperitoneum. LOWER CHEST: Mild linear atelectasis in both lower lung anguiano. Small to moderate bilateral pleural e ffusions, slightly greater on the right. LIVER: Normal in size and contour. No focal lesion. Cholecystectomy clips. BILIARY SYSTEM: No suspicious abnormalities. SPLEEN: Normal size. No focal lesion. PANCREAS: No mass, ductal dilation, or mickie-pancreatic fluid. ADRENALS: Normal; no mass. KIDNEYS: Small calcifications involve both kidneys. No hydronephrosis. GASTROINTESTINAL TRACT: No evidence of bowel obstruction, significant free fluid, free air or abscess . Moderate retained stool throughout the colon. LYMPH NODES: No lymphadenopathy. MUSCULOSKELETAL: Mild lumbar degenerative changes. ADDITIONAL FINDINGS: None. IMPRESSION: Small nonobstructing calculi seen in both kidneys. Moderate retained stool throughout the colon.
--- NOTE | 2024-05-24 09:44 | RAD REPORT ---
EXAMINATION: CT CHEST WITHOUT CONTRAST CLINICAL INDICATION: CARLOS TECHNIQUE: Routine CT scan of the chest without intravenous contrast. One or more of the following do se reduction techniques were used: Automated exposure control, adjustment of the mA and/or kV according to patient size, and/or iterative reconstruction. Unless otherwise specified, incidental fi ndings do not require dedicated imaging follow-up. COMPARISON: 05/09/2024 FINDINGS: LOWER NECK: Visualized thyroid gland and soft tissues are normal. Right-sided venous catheter noted. LUNGS: Mild linear atelectasis is present in both lung bases, greater on the left. PLEURA: Small to moderate bilateral pleural effusions. MEDIASTINUM AND LYMPH NODES: No mediastinal mass or fluid collection. Normal size mediastinal, hilar, and axillary lymph nodes. OSSEOUS STRUCTURES AND CHEST WALL: Intact. UPPER ABDOMEN: Please see separately reported CT abdomen study. IMPRESSION: [id number] bilateral pleural effusions with atelectasis in both lung bases. Examination limited by lack of IV contrast.
[2024-05-24 10:27] LABS: Abnormal Protein Band 1 REPORT; Albumin, (SPE) 3.1 g/dL (3.8-4.8); Alpha-1-Globulins 0.5 g/dL (0.2-0.3); Alpha-2-Globulins 1.1 g/dL (0.5-0.9); Beta 1 Globulin 0.4 g/dL (0.4-0.6); Gamma Globulins 0.7 g/dL (0.8-1.7); INTERPRETATION REPORT; Total Protein 6.1 g/dL (6.1-8.1)
[2024-05-24] MEDS: ALBUMIN HUMAN 25% 100 ML IV ONE (14:59)
--- NOTE | 2024-05-24 18:00 | P.PN ---
Subjective Date of Service: 05/24/24 Subjective: No new changes, No C/O voiced, Improving Physical Examination - Vital Signs Temperature: 97.6 F Blood Pressure: 121/55 Pulse: 78 Respirations: 15 Pulse Ox (%): 97 - Studies Microbiology Data (last 24 hrs): 05/19/24 10:00 Blood - Blood Aerobic Blood Culture - Final No growth in 5 days. 05/19/24 10:00 Blood - Blood Anaerobic Blood Culture - Final No growth in 5 days. 05/19/24 10:00 Blood - Blood Aerobic Blood Culture - Final No growth in 5 days. 05/19/24 10:00 Blood - Blood Anaerobic Blood Culture - Final No growth in 5 days. Medications List Reviewed: Yes Assessment & Plan - Problems (Diagnosis) (1) Dyspnea Current Visit: No Status: Acute (2) CARLOS (acute kidney injury) Current Visit: Yes Status: Acute (3) Prerenal azotemia Current Visit: Yes Status: Acute (4) Diarrhea Current Visit: Yes Status: Acute (5) CHF (congestive heart failure) Current Visit: Yes Status: Acute (6) TIA (transient ischemic attack) Current Visit: Yes Status: Acute (7) PAD (peripheral artery disease) Current Visit: Yes Status: Acute - Plan Plan: 1. Dyspnea on; most likely related to multifactorial etiology including patient with prerenal azotemia, diarrhea, dehydration, history of cardiomyopathy with an EF of 40 to 45%; questionable infiltrate mentioned on the x-ray; chest x-ray comparable to prior x-ray from a few days before. At that time there was no mention of an infiltrate. Both blood cultures and procalcitonin level pending. Will cover with broad-spectrum antibiotic for healthcare acquired pneumonia. Will gently hydrate patient as patient with significant prerenal azotemia. Will monitor her volume status closely. We did increase her diuretics prior to her discharging and I believe along with her diarrhea as she has been over diuresed. BNP elevated possibly related to multiple other etiologies as patient's blood pressure and diastolic function is elevated. Will monitor her volume status and repeat x-ray in the morning 2. Cardiomyopathy; patient with an EF of 40 to 45%. Monitor her volume status closely. Cardiology consultation. Currently patient appears to be over diuresed as she is in acute renal failure from what looks to be prerenal azotemia. Will back off on her diuretics for the short term and see how she response. Her ejection fraction is fairly adequate at 45%. 3. Persistent diarrhea; stools pending-C. difficile and cultures 4. elevated troponins; continue with cardiac follow-up 5. anemia; continue monitoring H&H and check iron levels and B12 levels monitor renal function closely 6. Gi DVT prophylaxis - Advance Directives Does patient have a Living Will: No Does patient have a Durable POA for Healthcare: No - Code Status/Comfort Care Code Status: Full Code
--- NOTE | 2024-05-24 22:10 | PN ---
Date of Progress Note: 05/24/2024 Chief Complaint: Acute on chronic kidney injury. History Of Present Illness: The patient has cardiorenal syndrome. She remains nonoliguric. She was started on hemodialysis and azotemia has improved in response to dialysis. The patient is scheduled to have dialysis tomorrow. The patient is undergoing dialysis via tunneled dialysis catheter. She has chronic kidney disease st age 2. She developed acute on chronic kidney injury secondary to cardiorenal syndrome. Review of Systems: Denies chest pain, palpitation. Denies nausea, vomiting. Physical Examination: Lungs: Clear to auscultation bilaterally. Heart: S1, S2. Abdomen: Soft, benign. Extremities: Edema has improved. Impression And Plan: 1.Acute kidney injury secondary to cardiorenal syndrome. Renal function has declined. The patient remains dialysis dependent, although azotemia is controlled with dialysis, electrolytes are stable. Continue renal diet with low-potassium and low-sodium diet. Monitor urine output. Currently, the maximo lua is dialysis dependent and is scheduled to have dialysis and ultrafiltration tomorrow. 2.Anemia of chronic disease. Continue MARTY. Monitor iron status. 3.Congestive heart failure with exacerbation. Continue low-sodium diet. Monitor blood pressure and optimize volemia status with dialysis. 4.Pneumonia. Continue antibiotics. 5.Hypertension. Continue current blood pressure medication. EB/MODL Voice ID: [id number] Report ID: [id number]
[2024-05-25 05:52] LABS: Absolute Basophils 0.1 K/uL (0-0.5); Absolute Eosinophils 0.5 K/uL (0-0.5); Basophils % 1.2 % (0-1.3); Eosinophils % 4.4 % (0-4.4); Hematocrit 25.8 % (36.0-45.0); Hemoglobin 8.3 g/dL (12.0-15.0); Lymphocytes % 18.8 % (15.3-44.8); MCHC 32.3 g/dL (32.0-36.0); MCV 89.7 fL (80-100); MPV 8.7 fL (7.6-11.3); Monocytes % 9.5 % (3.3-12.3); Neutrophils % 66.1 % (41.7-73.7); Nucleated Red Blood Cells % 0.1 % (0-0); Platelets 192 thou/uL (152-406); RBC Red Blood Cell Count 2.87 M/uL (3.86-4.86); Red Cell Distribution Width 15.3 % (12.1-15.2)
[2024-05-25 06:08] LABS: AST/SGOT 13 U/L (15-37); Albumin 3.1 g/dL (3.4-5.0); Albumin/Globulin Ratio 0.9 (1.1-1.8); Alkaline Phosphatase 74 U/L (45-117); Anion Gap 10.2 mEq/L (5.0-15.0); BUN Blood Urea Nitrogen 58 mg/dL (7-18); Bicarbonate 26 mEq/L (21-32); Bilirubin Total 0.4 mg/dL (0.2-1.0); Globulin 3.5 g/dL (2.3-3.5); Glomerular Filtration Rate 8 ml/min (=/>90); Glucose Level 128 mg/dL (74-106); Magnesium 2.4 mg/dL (1.6-2.4); Phosphorus 5.8 mg/dL (2.5-4.9); Potassium 4.2 mEq/L (3.5-5.1); Protein, Total 6.6 g/dL (6.4-8.2); Sodium Level 137 mEq/L (136-145)
[2024-05-25 06:12] LABS: ALT/SGPT < 14 U/L (13-56)
--- NOTE | 2024-05-25 10:36 | P.PN ---
Subjective Date of Service: 05/25/24 Chief Complaint: Shortness of breath; persistent diarrhea; CARLOS Subjective: No new changes, No C/O voiced, Tolerating diet, Ambulating, Improving Review of Systems 10-point ROS is otherwise unremarkable Physical Examination - Vital Signs Temperature: 97.2 F Blood Pressure: 127/61 Pulse: 75 Respirations: 16 Pulse Ox (%): 95 - Physical Exam General: Alert, In no apparent distress HEENT: Atraumatic, PERRLA, EOMI Neck: Supple, JVD not distended Respiratory: Clear to auscultation bilaterally, Normal air movement Cardiovascular: Regular rate/rhythm, Normal S1 S2 Gastrointestinal: Normal bowel sounds, No tenderness Musculoskeletal: No tenderness Integumentary: No rashes Neurological: Normal speech, Normal tone, Normal affect Lymphatics: No axilla or inguinal lymphadenopathy - Studies Microbiology Data (last 24 hrs): 05/19/24 10:00 Blood - Blood Aerobic Blood Culture - Final No growth in 5 days. 05/19/24 10:00 Blood - Blood Anaerobic Blood Culture - Final No growth in 5 days. 05/19/24 10:00 Blood - Blood Aerobic Blood Culture - Final No growth in 5 days. 05/19/24 10:00 Blood - Blood Anaerobic Blood Culture - Final No growth in 5 days. Medications List Reviewed: Yes Assessment And Plan - Current Problems (Diagnosis) (1) CARLOS (acute kidney injury) Current Visit: Yes Status: Acute Plan: multifactorial Patient is getting dialysis. (2) CHF (congestive heart failure) Current Visit: Yes Status: Acute Plan: volume adjusement through dialysis and lasix continue Toprol XL 25 mg BID Lisinopril is on Hold (3) PAD (peripheral artery disease) Current Visit: Yes Status: Acute Plan: Patient with complex PAD, follow up with IR on Xarelto and Brilinta Cardiology will sign off, please call if have any questions.
[2024-05-25 12:07] VITALS: BMI 24.3
[2024-05-25] MEDS: EPOETIN ALFA 10,000 UNIT/ML VIAL IV SCH (17:30)
--- NOTE | 2024-05-26 00:41 | PN ---
Date of Progress Note: 05/25/2024 Chief Complaint: Acute on chronic kidney injury. Subjective: The patient has cardiorenal syndrome. She developed acute on chronic kidney injury. Sh e may remain borderline oliguric. Urine output is not improved in response to Lasix. The patient is started on hemodialysis azotemia has improved in response to dialysis. The patient is scheduled to have dialysis today. She underwent tunneled dialysis catheter placement and it has been used for latosha lysis access. She has chronic kidney disease, stage 3. She developed acute on chronic kidney injury secondary to cardiorenal syndrome. Currently, she is oliguric and she has acute tubular necrosis as well. Review of Systems: Denies chest pain, palpitation. Physical Examination: Lungs: Clear to auscultation bilaterally. Heart: S1, S2. Abdomen: Soft, benign. Extremities: Edema is mild, overall improved. Impression And Plan: 1.Acute kidney injury secondary to cardiorenal syndrome. Renal function has declined. The patient remains dialysis dependent. Azotemia is controlled with dialysis. Electrolytes are stable. Continu e renal diet with low potassium diet. Monitor urine output and continue dialysis with ultrafiltratio n to control azotemia and volume status. 2.Anemia of chronic disease. Continue MARTY. Monitor iron status. 3.Congestive heart failure with exacerbation. Continue low-sodium diet. Monitor blood pressure dur ing dialysis and optimize volemia status with the dialysis and ultrafiltration. 4.Pneumonia. Continue antibiotics. 5.Hypertension. Continue current blood pressure medication. ADRIANNE/DUL Voice ID: [id number] Report ID: [id number]
--- NOTE | 2024-05-26 10:11 | P.PN ---
Date of Service: 05/26/24 Review of Systems 10-point ROS is otherwise unremarkable Physical Examination - Vital Signs reviewed - Physical Exam General: Alert, In no apparent distress, Oriented x3, O2 at 2L HEENT: Atraumatic, Normocephalic Neck: Supple, 2+ carotid pulse no bruit, JVD not distended, No Thyromegaly, No LAD - tunneled dialysis cath to right Respiratory: Diminished Cardiovascular: Regular rate/rhythm, Normal S1 S2, Abnormal pulses to lower ext, Systolic murmur Gastrointestinal: Normal bowel sounds, Soft and benign Musculoskeletal: No clubbing, Swelling Integumentary: No rashes, pallor Neurological: Normal speech, Normal strength at 5/5 x4 extr, Sensation intact, Cranial nerves 3-12 intact Assessment & Plan - Problems (Diagnosis) (1) Dyspnea Current Visit: No Status: Acute (2) CARLOS (acute kidney injury) Current Visit: Yes Status: Acute (3) Prerenal azotemia Current Visit: Yes Status: Acute (4) Diarrhea Current Visit: Yes Status: Acute (5) CHF (congestive heart failure) Current Visit: Yes Status: Acute (6) TIA (transient ischemic attack) Current Visit: Yes Status: Acute (7) PAD (peripheral artery disease) Current Visit: Yes Status: Acute - Plan Plan: 1. Dyspnea on; most likely related to multifactorial etiology including patient with prerenal azotemia, diarrhea, dehydration, history of cardiomyopathy with an EF of 40 to 45%; questionable infiltrate mentioned on the x-ray; chest x-ray comparable to prior x-ray from a few days before. At that time there was no mention of an infiltrate. Both blood cultures and procalcitonin level pending. Will cover with broad-spectrum antibiotic for healthcare acquired pneumonia. Will gently hydrate patient as patient with significant prerenal azotemia. Will monitor her volume status closely. We did increase her diuretics prior to her discharging and I believe along with her diarrhea as she has been over diuresed. BNP elevated possibly related to multiple other etiologies as patient's blood pressure and diastolic function is elevated. Will monitor her volume status and repeat x-ray in the morning (05/20/22 shows bilat pleural effusions and mild volume overload), pt quite SOB with minimal exertion 2. Cardiomyopathy; patient with an EF of 40 to 45%. Monitor her volume status closely. Cardiology consultation. 05/20/24 (Dr. Mcdowell seeing pt) Currently patient appears to be over diuresed as she is in acute renal failure from what looks to be prerenal azotemia. Will back off on her diuretics for the short term and see how she response. Her ejection fraction is fairly adequate at 45%. 3. Persistent diarrhea; stools pending-C. difficile and cultures - Negative for C. diff 05/20/24 4. elevated troponins; continue with cardiac follow-up (05/20/24 probably related to cardiorenal - no chest pain) 5. anemia; continue monitoring H&H and check iron levels and B12 levels monitor renal function closely, Consulted nephrology. Dr. Hillman/Lianna consulting. Bicarb drip and Iron infusions begun yesterday. Pt and Dr. 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 Creatinine has increased since admission to 3.89 with a GFR of 11. Bicarb drip stopped at 1200. Dr. Dsouza ordered 40mg po lasix BID 6. Gi DVT prophylaxis 05/20/24 Pt upgraded to ICU. Dyspneic, crackles to bases. Will try 05/02 BiPap for her comfort. 05/21/24 Slept much better and less fitful with BiPap. Creatinine continues to worsening. Dr. Dsouza following for cardiorenal syndrome with Dr. 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 Alvarado BOTTLE WASHING MACHINE OPERATOR per Dr. Dsouza pt sleeping comfortably all night on BiPap carrera with scant, clear urine Creatinine 3.42->3.72->3.81->4.86->5.16 with GFR 8 1200 - right tunneled dialysis cath placed per Dr. Alvarado. pt returned to room groggy but comfortable, conversant, stable 05/23/24 300ml removed with first dialysis yesterday afternoon. Pt tolerated well, + lunch with family at bedside post dialysis. This am, pt awake, alert. Would like a BNP drawn and her left foot re-evaluated with x-ray. No edema, used BiPap last pm but on 2L O2 via N/C now at 100% this am creatinine 4.61 and GFR 9, 300ml clear yellow urine outpt per carrera overnight 05/26/24 pt downgraded to tele looks tired, withdrawn, looks chronically ill (changed significantly since admission) would prefer carrera removal but we need to see oligouria, I&O on dialysis, ATN with possible cardiorenal Nephrology following Discharge Plan: Home Plan to discharge in: Greater than 2 days - Advance Directives Does patient have a Living Will: No Does patient have a Durable POA for Healthcare: No - Code Status/Comfort Care Code Status Assessed: Yes Code Status: Full Code Critical Care: No Time Spent Managing PTS Care (In Minutes): 35
--- NOTE | 2024-05-26 19:09 | PN ---
Date of Progress Note: 05/26/2024 Subjective: The patient was admitted to the hospital with acute kidney injury secondary to cardiorenal. The patient require dialysis. The patient tolerated the dialysis. The patient is status post dialysis yesterday. Physical Examination: Vital Signs: When I saw the patient, blood pressure 122/59, pulse of 80, afebrile. Chest: Clear to auscultation. Heart: S1, S2 regular. Abdomen: Soft, nontender. Extremities: No edema. Neuro: Alert. No focality. Laboratory Data: Hemoglobin 8.3, sodium 137, potassium 4.2, bicarb 26, BUN 58, creatinine 4.9, calcium of 10.2. Current Medications: The patient is on include; 1. Meropenem. 2. IV iron. 3. Epogen. 4. Metoprolol. 5. Lyrica. 6. Tylenol. Assessment And Plan: 1. Acute kidney injury secondary to cardiorenal, nonoliguric, over volume to normal volume currently. I am going to continue dialysis Saturday, Saturday, Saturday. We will continue to monitor the patient as outpatient on the recovery. 2. Hypertension, controlled, optimal. Continue current treatment. 3. Secondary hyperparathyroidism, stable. 4. Iron deficiency anemia/anemia of chronic kidney disease. Continue IV iron. 5. Congestive heart failure with exacerbation, currently normal volume. We will continue to establish better volume control with dialysis. Time spent examining the patient [id number] reviewing data lab and the radiology placing order discussing the case with the patient/family member, discussing the case with the housekeeping and laundry team leader including hospitalist and nursing staff more than 55 minutes RODRIGUEZ Voice ID: [id number] Report ID: [id number] MARGARET
--- NOTE | 2024-05-27 06:35 | P.PN ---
Date of Service: 05/27/24 subjective Breathing better, 94% on room air Hemodialysis today DC carrera cath, flomax Review of Systems 10-point ROS is otherwise unremarkable Physical Examination - Vital Signs reviewed - Physical Exam General: Alert, Oriented x3, no acute distress noted HEENT: Atraumatic, Normocephalic Neck: Supple, 2+ carotid pulse no bruit, JVD not distended, No Thyromegaly, No LAD - tunneled dialysis cath to right Respiratory: Diminished Cardiovascular: Regular rate/rhythm, Normal S1 S2, Abnormal pulses to lower ext, Systolic murmur Gastrointestinal: Normal bowel sounds, Soft and benign Musculoskeletal: No clubbing, Swelling, generalized weakness Integumentary: No rashes, pallor Neurological: Normal speech, Normal strength at 5/5 x4 extr, Assessment & Plan - Problems (Diagnosis) Dyspnea improved Acute hypoxic respiratory failure from decompensated heart failure/fluid volume overload improved Current Visit: No Status: Acute CARLOS (acute kidney injury) Current Visit: Yes Status: Acute Prerenal azotemia improved end-stage renal disease hemodialysis Current Visit: Yes Status: Acute Nephrology following, hemodialysis initiated Discharge with outpatient hemodialysis schedule Saturday Diarrhea Current Visit: Yes Status: Acute CHF (congestive heart failure) improved Current Visit: Yes Status: Acute Initiate hemodialysis, multifactoral TIA (transient ischemic attack) Current Visit: Yes Status: Acute PAD (peripheral artery disease) chronic anticoagulation Current Visit: Yes Status: Acute On Brilinta Xarelto Will need to follow-up with interventional radiology microcytic anemia Current Visit: Yes Status: Acute Trend H&H transfuse less than - Plan Plan: 1. Dyspnea on; most likely related to multifactorial etiology including patient with prerenal azotemia, diarrhea, dehydration, history of cardiomyopathy with an EF of 40 to 45%; questionable infiltrate mentioned on the x-ray; chest x-ray comparable to prior x-ray from a few days before. At that time there was no mention of an infiltrate. Both blood cultures and procalcitonin level pending. Will cover with broad-spectrum antibiotic for healthcare acquired pneumonia. Will gently hydrate patient as patient with significant prerenal azotemia. Will monitor her volume status closely. We did increase her diuretics prior to her discharging and I believe along with her diarrhea as she has been over diuresed. BNP elevated possibly related to multiple other etiologies as patient's blood pressure and diastolic function is elevated. Will monitor her volume status and repeat x-ray in the morning (05/20/22 shows bilat pleural effusions and mild volume overload), pt quite SOB with minimal exertion 2. Cardiomyopathy; patient with an EF of 40 to 45%. Monitor her volume status closely. Cardiology consultation. 05/20/24 (Dr. Mcdowell seeing pt) Currently patient appears to be over diuresed as she is in acute renal failure from what looks to be prerenal azotemia. Will back off on her diuretics for the short term and see how she response. Her ejection fraction is fairly adequate at 45%. 3. Persistent diarrhea; stools pending-C. difficile and cultures - Negative for C. diff 05/20/24 4. elevated troponins; continue with cardiac follow-up (05/20/24 probably related to cardiorenal - no chest pain) 5. anemia; continue monitoring H&H and check iron levels and B12 levels monitor renal function closely, Consulted nephrology. Dr. Hillman/Lianna consulting. Bicarb drip and Iron infusions begun yesterday. Pt and Dr. 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 Creatinine has increased since admission to 3.89 with a GFR of 11. Bicarb drip stopped at 1200. Dr. Dsouza ordered 40mg po lasix BID 6. Gi DVT prophylaxis 05/20/24 Pt upgraded to ICU. Dyspneic, crackles to bases. Will try 10 BiPap for her comfort. 05/21/24 Slept much better and less fitful with BiPap. Creatinine continues to worsening. Dr. Dsouza following for cardiorenal syndrome with Dr. Mcdowell NPO for dialysis cath today, allowed renal diet - dialysis cath tomorrow [employer] DRIER per Nephrology 05/22/24 scheduled for dialysis cath today consent on chart for Dr. Alvarado SH[employer] DRIER per Dr. Dsouza pt sleeping comfortably all night on BiPap carrera with scant, clear urine Creatinine 3.42->3.72->3.81->4.86->5.16 with GFR 8 1200 - right tunneled dialysis cath placed per Dr. Alvarado. pt returned to room groggy but comfortable, conversant, stable 05/23/24 300ml removed with first dialysis yesterday afternoon. Pt tolerated well, + lunch with family at bedside post dialysis. This am, pt awake, alert. Would like a BNP drawn and her left foot re-evaluated with x-ray. No edema, used BiPap last pm but on 2L O2 via N/C now at 100% this am creatinine 4.61 and GFR 9, 300ml clear yellow urine outpt per carrera overnight 05/26/24 pt downgraded to tele looks tired, withdrawn, looks chronically ill (changed significantly since admission) would prefer carrera removal but we need to see oligouria, I&O on dialysis, ATN with possible cardiorenal Nephrology following 05/27 DC Carrera cath, flomax Will order HD for today Discharge Plan: Home Plan to discharge in: Greater than 2 days - Advance Directives Does patient have a Living Will: No Does patient have a Durable POA for Healthcare: No - Code Status/Comfort Care Code Status Assessed: Yes Code Status: Full Code Critical Care: No Time Spent Managing PTS Care (In Minutes): 35
[2024-05-27] MEDS: TAMSULOSIN 0.4 MG SR CAP PO SCH (09:54)
[2024-05-27 12:19] LABS: Absolute Eosinophils 0.3 K/uL (0-0.5); Absolute Lymphocytes (CBC) 0.9 K/uL (0.7-4.9); Absolute Monocytes 0.2 K/uL (0.1-1.3); Absolute Neutrophil 4.9 K/uL (1.8-8.0); Basophils % 0.2 % (0-1.3); Eosinophils % 4.5 % (0-4.4); Hematocrit 27.8 % (36.0-45.0); Hemoglobin 9.1 g/dL (12.0-15.0); Lymphocytes % 14.9 % (15.3-44.8); MCH 29.6 pg (27.0-35.0); MCHC 32.8 g/dL (32.0-36.0); MCV 90.3 fL (80-100); MPV 8.7 fL (7.6-11.3); Monocytes % 3.3 % (3.3-12.3); Neutrophils % 77.1 % (41.7-73.7); Nucleated Red Blood Cells % 0.2 % (0-0); Platelets 102 thou/uL (152-406); RBC Red Blood Cell Count 3.08 M/uL (3.86-4.86); Red Cell Distribution Width 15.3 % (12.1-15.2)
--- NOTE | 2024-05-27 16:24 | PN ---
Date of Progress Note: 05/27/2024 Subjective: The patient was admitted to the hospital with acute kidney injury secondary to cardiorenal. The patient had uremic symptoms. The patient was initiated on dialysis. Patient tolerating the dialysis. Objective: Vital Signs: Blood pressure 112/59, pulse of 73, afebrile. Chest: Clear to auscultation. Heart: S1, S2. Regular. Abdomen: Soft, nontender. Extremities: No edema. Neurologic: Alert. No focality. Laboratory Data: For the patient, WBC 10.6, hemoglobin 8.3, sodium 137, potassium 4.2, bicarb 26, BUN 58, creatinine 4.9, calcium of 9. Current Medications: The patient on, it includes IV iron, Epogen, Xarelto, metoprolol, nitroglycerin, Renvela 1 tablet with each meal, Lasix b.i.d., Pepcid, insulin. Assessment And Plan: 1. Acute kidney injury secondary to cardiorenal, dialysis dependent. I am going to continue dialysis Saturday, Saturday, Saturday. We will watch the patient for recovery. 2. Hypertension, controlled, optimal. Continue current treatment. 3. Anemia of iron deficiency and chronic kidney disease. Continue IV iron. Continue MARTY. 4. Congestive heart failure, currently normal volume. I am going to go ahead and continue Lasix p.o. 5. Discontinue Hale. Continue strict I's and O's. 6. Secondary hyperparathyroidism. Continue Renvela. Follow up phosphorus. The patient cleared from the Renal standpoint for discharge planning. Time spent examining the patient [id number] reviewing data lab and the radiology placing order discussing the case with the patient/family member, discussing the case with the meat team member including hospitalist and nursing staff more than 55 minutes RODRIGUEZ Voice ID: [id number] Report ID: [id number] MARGARET
--- NOTE | 2024-05-27 17:44 | RAD REPORT ---
EXAM: MRI of the foot without contrast HISTORY: Evaluate for osteomyelitis. Possible osteomyelitis COMPARISON: Plain radiograph 05/24/2024 TECHNIQUE: Multiplanar multisequence MR images were obtained of the foot without contrast. FINDINGS: Elevated T2 signal and diminished T1 signal is seen in the third toe with edema in the surrounding so ft tissues. This is compatible with osteomyelitis. Slight signal abnormality also seen in the third tarsal head. No focal fluid collection is seen in the soft tissues. The muscles and tendons appear intact. IMPRESSION: Moderate osteomyelitis involves the entire third toe. Early osteomyelitis potentially involves the th ird metatarsal head. Please note that evaluation is limited without IV contrast.
[2024-05-27 18:21] LABS: Magnesium 2.1 mg/dL (1.6-2.4)
--- NOTE | 2024-05-27 20:34 | P.DS ---
Admission Date: 05/19/24 Discharge Date: 05/28/24 Disposition: ROUTINE DISCHARGE Discharge Condition: FAIR Reason for Admission: Shortness of breath; persistent diarrhea; CARLOS Brief History of Present Illness: 84-year-old female who had a prolonged hospital stay and was just discharged a few days ago. At that time she presented with heart failure symptoms and a pneumonia. She developed confusion during her hospital stay and she was worked up for CVA. Her workup showed that she had CHF with an ejection fraction of 40 to 45% and she had wall motion abnormality with hypokinesis in multiple areas. At that time cardiology did not want to do any aggressive intervention and patient was discharged home on medical therapy. We increased her Lasix to twice a day at that time. Patient was discharged home and she was feeling pretty good but apparently she developed diarrhea and she may have been over diuresed. She came back in here with CARLOS and diarrhea. Concern for C. difficile. C. difficile toxins pending. Patient with prerenal azotemia, fluid volume overload from renal insufficiency. Originally admitted to ICU on a bicarb drip, Lasix, treated with BiPAP, for shortness of breath. - Physical Exam General: Alert, Oriented x3, no acute distress noted HEENT: Atraumatic, Normocephalic Neck: Supple, 2+ carotid pulse no bruit, JVD not distended, No Thyromegaly, No LAD - tunneled dialysis cath to right Respiratory: Diminished Cardiovascular: Regular rate/rhythm, Normal S1 S2, Abnormal pulses to lower ext, Systolic murmur Gastrointestinal: Normal bowel sounds, Soft and benign Musculoskeletal: No clubbing, Swelling, generalized weakness, left foot pain tenderness Integumentary: No rashes, pallor Neurological: Normal speech, Normal strength at 5/5 x4 extr, Hospital Course: 84-year-old female who had a prolonged hospital stay and was just discharged a few days ago. At that time she presented with heart failure symptoms and a pneumonia. She developed confusion during her hospital stay and she was worked up for CVA. Her workup showed that she had CHF with an ejection fraction of 40 to 45% and she had wall motion abnormality with hypokinesis in multiple areas. At that time cardiology did not want to do any aggressive intervention and patient was discharged home on medical therapy. We increased her Lasix to twice a day at that time. Patient was discharged home and she was feeling pretty good but apparently she developed diarrhea and she may have been over diuresed. She came back in here with CARLOS and diarrhea. Concern for C. difficile. C. difficile toxins pending. Patient with prerenal azotemia, fluid volume overload from renal insufficiency. Originally admitted to ICU on a bicarb drip, Lasix, treated with BiPAP, for shortness of breath. Hemodialysis was initiated 05/22. cont vanc w HD schedule Assessment Prerenal azotemia-being followed by nephrology treated HD op MWF Acute hypoxic respiratory failure due to decompensated heart failure from fluid volume overload,treated HD Congestive heart failure from fluid volume overload-treated HD Acute kidney injury, Renal insufficiency,treated HD Hemodialysis was initiated 05/22 Diarrhea Negative for C. diff 05/20/24 PAD on Brilinta, Xarelto- Left foot osteomyelitis-Vanc prior to HD schedule, DC Picc line prior to DC- start vanc with HD schedule MWF 05/27 left foot MRI Moderate osteomyelitis involves the entire third toe. Early osteomyelitis potentially involves the third metatarsal head. Blood cultures no growth Continue home medicines as previously prescribed GOAL: Clear understanding of disease process INSTRUCTIONS: Physician Discharge Instructions: -Follow up w neph MWF OP HD -Follow-up with PCP in 1 to 2 weeks -Please call Dr. Bowers at [phone] if any questions regarding hospital stay -Please call nursing station at [phone] if any nursing or medication questions -Return to the emergency room if symptoms worsen Diet: ADA, low sodium Activity: Fall precautions Vital Signs/Physical Exam: Temp Pulse Resp BP Pulse Ox 98.6 F 83 12 116/56 L 97 05/27/24 16:00 05/27/24 16:00 05/27/24 16:00 05/27/24 16:00 05/27/24 16:00 Laboratory Data at Discharge: WBC 6.30 thou/uL (4.3-10.9) 05/27/24 12:05 Hgb 9.1 g/dL (12.0-15.0) L 05/27/24 12:05 Hct 27.8 % (36.0-45.0) L 05/27/24 12:05 Plt Count 102 thou/uL (152-406) L 05/27/24 12:05 PT 14.3 SECONDS (9.4-12.5) H 05/19/24 11:54 INR 1.29 05/19/24 11:54 APTT 35.4 SECONDS (24.3-36.9) 05/19/24 11:54 Sodium 135 mEq/L (136-145) L 05/27/24 17:54 Potassium 4.0 mEq/L (3.5-5.1) 05/27/24 17:54 BUN 24 mg/dL (7-18) H 05/27/24 17:54 Creatinine 3.41 mg/dL (0.55-1.02) H 05/27/24 17:54 Glucose 134 mg/dL (74-106) H 05/27/24 17:54 Uric Acid 7.9 mg/dL (2.6-6.0) H 05/19/24 11:54 Phosphorus Cancelled 05/25/24 06:00 Magnesium 2.1 mg/dL (1.6-2.4) 05/27/24 17:54 Total Bilirubin 0.4 mg/dL (0.2-1.0) 05/25/24 05:35 AST 13 U/L (15-37) L 05/25/24 05:35 ALT < 14 U/L (13-56) 05/25/24 05:35 Alkaline Phosphatase 74 U/L (45-117) 05/25/24 05:35 Triglycerides 100 mg/dL (<150) 05/20/24 04:19 Cholesterol 128 mg/dL (<200) 05/20/24 04:19 HDL Cholesterol 39 mg/dL (40-60) L 05/20/24 04:19 Cholesterol/HDL Ratio 3.28 05/20/24 04:19 Home Medications: Insulin NPH Human Isophane [Novolin N] 20 unit SQ DAILY 05/05/24 Insulin Regular, Human [Novolin R] See Protocol SQ ACHS 05/05/24 Pregabalin [Lyrica*] 50 mg PO BEDTIME 05/05/24 Rivaroxaban [Xarelto*] 10 mg PO DAILY 05/05/24 Ticagrelor [Brilinta*] 90 mg PO BID 05/05/24 lisinopriL [Lisinopril] 20 mg PO DAILY 05/05/24 Pentoxifylline 400 mg PO BID 05/09/24 Famotidine [Pepcid*] 20 mg PO BEDTIME #30 tab 05/14/24 Furosemide [Lasix*] 20 mg PO BIDAC #60 tab 05/14/24 Metoprolol Succinate [Toprol Xl*] 25 mg PO BID 6AM 6PM #60 tab 05/14/24 Nystatin Oint [Mycostatin 100 Mu/Gm Oint*] 1 appl TOP BID #1 tube 05/14/24 Potassium Chloride 10 meq PO DAILY #30 tab 05/14/24 Nitroglycerin Oint [Nitrol Oint] 30 gm TD PRN #1 tube 05/15/24 Physician Discharge Instructions: OK TO DC IV AND DC HOME FOLLOW-UP WITH PCP IN 1-2 WEEKS FOLLOW-UP WITH NEPHROLOGY FOR HEMODIALYSIS RETURN TO THE ER IF SYMPTOMS WORSENS FOLLOW-UP WITH CARDIOLOGY IN 1-2 WEEKS 84-year-old female who had a prolonged hospital stay and was just discharged a few days ago. At that time she presented with heart failure symptoms and a pneumonia. She developed confusion during her hospital stay and she was worked up for CVA. Her workup showed that she had CHF with an ejection fraction of 40 to 45% and she had wall motion abnormality with hypokinesis in multiple areas. At that time cardiology did not want to do any aggressive intervention and patient was discharged home on medical therapy. We increased her Lasix to twice a day at that time. Patient was discharged home and she was feeling pretty good but apparently she developed diarrhea and she may have been over diuresed. She came back in here with CARLOS and diarrhea. Concern for C. difficile. C. difficile toxins pending. Patient with prerenal azotemia, fluid volume overload from renal insufficiency. Originally admitted to ICU on a bicarb drip, Lasix, treated with BiPAP, for shortness of breath. Hemodialysis was initiated 05/22. Assessment Prerenal azotemia-being followed by nephrology Acute hypoxic respiratory failure due to decompensated heart failure from fluid volume overload, Congestive heart failure from fluid volume overload Acute kidney injury, Renal insufficiency, Hemodialysis was initiated 05/22 Diarrhea Negative for C. diff 05/20/24 PAD on Brilinta, Xarelto Left foot osteomyelitis-Vanc prior to HD schedule, DC Picc line prior to DC 05/27 left foot MRI Moderate osteomyelitis involves the entire third toe. Early osteomyelitis potentially involves the third metatarsal head. Blood cultures no growth Followup: Piedad Helton MD [COURTESY - CAN ADMIT] - 1-2 Weeks Jesusita Jordan NP [Primary Care Provider] - 1-2 Weeks Time spent managing pt's care (in minutes): 55
--- NOTE | 2024-05-27 20:50 | P.PN ---
Date of Service: 05/28/24 subjective Breathing better, 94% on room air Hemodialysis today MRI shows left foot osteomyelitis, Review of Systems 10-point ROS is otherwise unremarkable Physical Examination - Vital Signs reviewed - Physical Exam General: Alert, Oriented x3, no acute distress noted HEENT: Atraumatic, Normocephalic Neck: Supple, 2+ carotid pulse no bruit, JVD not distended, No Thyromegaly, No LAD - tunneled dialysis cath to right Respiratory: Diminished Cardiovascular: Regular rate/rhythm, Normal S1 S2, Abnormal pulses to lower ext, Systolic murmur Gastrointestinal: Normal bowel sounds, Soft and benign Musculoskeletal: No clubbing, Swelling, generalized weakness, left lower extremity pain weakness Integumentary: No rashes, pallor, left foot osteomyelitis Neurological: Normal speech, Normal strength at 5/5 x4 extr, Assessment & Plan - Problems (Diagnosis) left foot osteomyelitis Current Visit: No Status: Acute Surgery consulted IV antibiotics, Lactobacillus, probiotic Dyspnea improved Acute hypoxic respiratory failure from decompensated heart failure/fluid volume overload improved Current Visit: No Status: Acute CARLOS (acute kidney injury) Current Visit: Yes Status: Acute Prerenal azotemia improved end-stage renal disease hemodialysis Current Visit: Yes Status: Acute Nephrology following, hemodialysis initiated Discharge with outpatient hemodialysis schedule Saturday Diarrhea- C Diff negative Current Visit: Yes Status: Acute Diarrhea Negative for C. diff 05/20/24 CHF (congestive heart failure) improved Current Visit: Yes Status: Acute Initiate hemodialysis, multifactoral TIA (transient ischemic attack) Current Visit: Yes Status: Acute PAD (peripheral artery disease) chronic anticoagulation Current Visit: Yes Status: Acute On Brilinta Xarelto Will need to follow-up with interventional radiology microcytic anemia Current Visit: Yes Status: Acute Trend H&H transfuse less than - Plan Plan: 1. Dyspnea on; most likely related to multifactorial etiology including patient with prerenal azotemia, diarrhea, dehydration, history of cardiomyopathy with an EF of 40 to 45%; questionable infiltrate mentioned on the x-ray; chest x-ray comparable to prior x-ray from a few days before. At that time there was no mention of an infiltrate. Both blood cultures and procalcitonin level pending. Will cover with broad-spectrum antibiotic for healthcare acquired pneumonia. Will gently hydrate patient as patient with significant prerenal azotemia. Will monitor her volume status closely. We did increase her diuretics prior to her discharging and I believe along with her diarrhea as she has been over diuresed. BNP elevated possibly related to multiple other etiologies as patient's blood pressure and diastolic function is elevated. Will monitor her volume status and repeat x-ray in the morning (05/20/22 shows bilat pleural effusions and mild volume overload), pt quite SOB with minimal exertion 2. Cardiomyopathy; patient with an EF of 40 to 45%. Monitor her volume status closely. Cardiology consultation. 05/20/24 (Dr. Mcdowell seeing pt) Currently patient appears to be over diuresed as she is in acute renal failure from what looks to be prerenal azotemia. Will back off on her diuretics for the short term and see how she response. Her ejection fraction is fairly adequate at 45%. 3. Persistent diarrhea; stools pending-C. difficile and cultures - Negative for C. diff 05/20/24 4. elevated troponins; continue with cardiac follow-up (05/20/24 probably related to cardiorenal - no chest pain) 5. anemia; continue monitoring H&H and check iron levels and B12 levels monitor renal function closely, Consulted nephrology. Dr. Hillman/Lianna consulting. Bicarb drip and Iron infusions begun yesterday. Pt and Dr. 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 Creatinine has increased since admission to 3.89 with a GFR of 11. Bicarb drip stopped at 1200. Dr. Dsouza ordered 40mg po lasix BID 6. Gi DVT prophylaxis 05/20/24 Pt upgraded to ICU. Dyspneic, crackles to bases. Will try 10/5 BiPap for her comfort. 05/21/24 Slept much better and less fitful with BiPap. Creatinine continues to worsening. Dr. Dsouza following for cardiorenal syndrome with Dr. Mcdowell NPO for dialysis cath today, allowed renal diet - dialysis cath tomorrow APPLIANCE INSTALLER per Nephrology 05/22/24 scheduled for dialysis cath today consent on chart for Dr. Alvarado APPLIANCE INSTALLER per Dr. Dsouza pt sleeping comfortably all night on BiPap carrera with scant, clear urine Creatinine 3.42->3.72->3.81->4.86->5.16 with GFR 8 1200 - right tunneled dialysis cath placed per Dr. Alvarado. pt returned to room groggy but comfortable, conversant, stable 05/23/24 300ml removed with first dialysis yesterday afternoon. Pt tolerated well, + lunch with family at bedside post dialysis. This am, pt awake, alert. Would like a BNP drawn and her left foot re-evaluated with x-ray. No edema, used BiPap last pm but on 2L O2 via N/C now at 100% this am creatinine 4.61 and GFR 9, 300ml clear yellow urine outpt per carrera overnight 05/26/24 pt downgraded to tele looks tired, withdrawn, looks chronically ill (changed significantly since admission) would prefer carrera removal but we need to see oligouria, I&O on dialysis, ATN with possible cardiorenal Nephrology following 05/27 DC Carrera cath, flomax Will order HD for today Discharge Plan: Home Plan to discharge in: Greater than 2 days - Advance Directives Does patient have a Living Will: No Does patient have a Durable POA for Healthcare: No - Code Status/Comfort Care Code Status Assessed: Yes Code Status: Full Code Critical Care: No Time Spent Managing PTS Care (In Minutes): 35
[2024-05-27] MEDS: CEFEPIME 0.5 GM in NA CHLORIDE 0.9% 50 ML IV SCH (21:00)
[2024-05-27] MEDS: NITROGLYCERIN 1 GM PKT TD PRN (21:53)
[2024-05-27] MEDS: LACTOBACILLUS/ACIDOPHILUS TAB PO SCH (21:55)
[2024-05-28 06:13] LABS: Absolute Basophils 0.1 K/uL (0-0.5); Absolute Eosinophils 0.4 K/uL (0-0.5); Absolute Lymphocytes (CBC) 1.3 K/uL (0.7-4.9); Absolute Monocytes 0.9 K/uL (0.1-1.3); Absolute Neutrophil 3.2 K/uL (1.8-8.0); Basophils % 1.7 % (0-1.3); Eosinophils % 6.6 % (0-4.4); Hematocrit 26.3 % (36.0-45.0); Hemoglobin 8.8 g/dL (12.0-15.0); Lymphocytes % 21.6 % (15.3-44.8); MCH 29.7 pg (27.0-35.0); MCHC 33.2 g/dL (32.0-36.0); MCV 89.5 fL (80-100); MPV 8.3 fL (7.6-11.3); Monocytes % 15.7 % (3.3-12.3); Neutrophils % 54.4 % (41.7-73.7); Nucleated Red Blood Cells % 0.3 % (0-0); Platelets 131 thou/uL (152-406); RBC Red Blood Cell Count 2.94 M/uL (3.86-4.86); Red Cell Distribution Width 15.7 % (12.1-15.2)
[2024-05-28 06:36] LABS: AST/SGOT 11 U/L (15-37); Albumin 2.7 g/dL (3.4-5.0); Albumin/Globulin Ratio 0.8 (1.1-1.8); Alkaline Phosphatase 75 U/L (45-117); BUN Blood Urea Nitrogen 31 mg/dL (7-18); Bicarbonate 28 mEq/L (21-32); Bilirubin Total 0.3 mg/dL (0.2-1.0); Globulin 3.5 g/dL (2.3-3.5); Glomerular Filtration Rate 11 ml/min (=/>90); Glucose Level 239 mg/dL (74-106); Magnesium 2.1 mg/dL (1.6-2.4); NT PRO-BNP 29025 pg/mL (<450); Phosphorus 4.6 mg/dL (2.5-4.9); Protein, Total 6.2 g/dL (6.4-8.2); Sodium Level 134 mEq/L (136-145)
[2024-05-28 06:43] LABS: ALT/SGPT < 14 U/L (13-56)
[2024-05-28] MEDS: VANCOMYCIN 1 GM in NA CHLORIDE 0.9% 250 ML IVPB SCH ×2 (09:00→14:00)
[2024-05-28 11:54] VITALS: O2SAT 97
--- NOTE | 2024-05-28 16:28 | PN ---
Date of Progress Note: 05/28/2024 Subjective: Patient was admitted with acute kidney injury secondary to toxic ATN, poor perfusion ATN secondary to cardiorenal. The patient had to be initiated on dialysis. The patient feeling better. Last dialysis yesterday. Objective: Vital Signs: Blood pressure 100/67, pulse of 78, afebrile. Chest: Clear to auscultation. Heart: S1, S2. Regular. Abdomen: Soft, nontender. Extremities: No edema. Neurologic: Alert. No focality. No tremor. Laboratory Data: Vancomycin 9.6, hemoglobin 8.8, sodium 134, potassium 4, bicarb 28, BUN 31, creatinine 3.9, calcium 8.9, phosphorus 4.6, magnesium 2.1, albumin 2.7. Current Medications: The patient on, it includes: 1. Meropenem. 2. Flomax. 3. IV iron. 4. Epogen. 5. Brilinta. 6. Nitroglycerin. 7. Alprazolam. 8. Lasix 40 b.i.d. 9. Pepcid. 10. Zofran. Assessment And Plan: 1. Acute kidney injury secondary to cardiorenal, toxic acute tubular necrosis, normal volume. I am going to decrease Lasix to once a day. We will continue to monitor the patient's recovery. 2. Hypertension, currently blood pressure on the lower side. Decrease Lasix. 3. Congestive heart failure with exacerbation, currently normal volume. Decrease Lasix. Follow up with Cardiology. 4. Foot infection. Continue current antibiotic. Patient was switched to meropenem. We will follow up with primary, dose appropriate. Time spent examining the patient [id number] reviewing data lab and the radiology placing order discussing the case with the patient/family member, discussing the case with the paper steamer including hospitalist and nursing staff more than 55 minutes RODRIGUEZ Voice ID: [id number] Report ID: [id number] MARGARET
[2024-05-28 17:16] VITALS: BP 113/50; TEMP 97.3
[2024-05-28] MEDS ORDERED: Meropenem 500 MG in NA CHLORIDE 0.9% 100 ML IV SCH (21:00)
[2024-05-29] MEDS ORDERED: FUROSEMIDE 40 MG TABLET PO SCH (09:00)
[2024-05-29] MEDS ORDERED: VANCOMYCIN 1 GM in NA CHLORIDE 0.9% 250 ML IVPB SCH (18:00)
== END 2024-05-28 16:45 | disposition home or self-care (01) | DRG 673 ==
LOC: ER 07:13 → ERHOLD 10:47 → 2ND 11:13 → 3RD-ICU 05-20 13:32 → 2ND 05-25 12:50
PROVIDERS: ADMIT Hospitalist; ATTEND Hospitalist
PROC: 5A09557 Assistance with Respiratory Ventilation, Greater than 96 Consecutive Hours, Continuous Positive Airway Pressure (ICD-10-PCS; 2024-05-20)
PROC: 02HV33Z Insertion of Infusion Device into Superior Vena Cava, Percutaneous Approach (ICD-10-PCS; 2024-05-22)
PROC: 5A1D70Z Performance of Urinary Filtration, Intermittent, Less than 6 Hours Per Day (ICD-10-PCS; 2024-05-22)
PROC: 0T9B70Z Drainage of Bladder with Drainage Device, Via Natural or Artificial Opening (ICD-10-PCS; 2024-05-22)
PROC: 0JH63XZ Insertion of Tunneled Vascular Access Device into Chest Subcutaneous Tissue and Fascia, Percutaneous Approach (ICD-10-PCS; principal; 2024-05-22 10:30)
DX: N17.0 Acute kidney failure with tubular necrosis (principal); I50.23 Acute on chronic systolic (congestive) heart failure; J18.9 Pneumonia, unspecified organism; J96.01 Acute respiratory failure with hypoxia; I42.9 Cardiomyopathy, unspecified; E87.20 Acidosis, unspecified; G45.9 Transient cerebral ischemic attack, unspecified; I13.2 Hypertensive heart and chronic kidney disease with heart failure and with stage 5 chronic kidney disease, or end stage renal disease; M86.172 Other acute osteomyelitis, left ankle and foot; E11.69 Type 2 diabetes mellitus with other specified complication; N18.6 End stage renal disease; N25.81 Secondary hyperparathyroidism of renal origin; E11.22 Type 2 diabetes mellitus with diabetic chronic kidney disease; E11.51 Type 2 diabetes mellitus with diabetic peripheral angiopathy without gangrene; D63.1 Anemia in chronic kidney disease; D50.9 Iron deficiency anemia, unspecified; E86.0 Dehydration; E87.5 Hyperkalemia; T36.8X5A Adverse effect of other systemic antibiotics, initial encounter; R79.89 Other specified abnormal findings of blood chemistry; Z88.5 Allergy status to narcotic agent; Z79.4 Long term (current) use of insulin; Z79.01 Long term (current) use of anticoagulants; Z74.01 Bed confinement status; Z79.899 Other long term (current) drug therapy; Y95 Nosocomial condition
CPT/HCPCS: 36415; 71045; 71250; 74150; 76000; 76770; 80048; 80053; 80061; 80069; 80076; 80202; 82043; 82550; 82570; 82947; 83605; 83735; 83880; 84100; 84132; 84145; 84156; 84165; 84300; 84484; 84550; 85025; 85379; 85610; 85730; 86021; 86140; 86704; 86706; 87040; 87340; 90935; 93005; 94640; 94660; 96365; 97116; 97161; 97530; 99285; A4216; C1752; J0692; J1100; J1644; J1815; J2003; J2150; J2270; J2405; J2543; J2704; J2916; J3010; J7030; J7040; J7050; J7614; P9047; Q4081